=== PATIENT | female | born 1940 | race Hispanic/Latino ===

== ENCOUNTER 2017-12-21 09:01 | Observation (INO) | payer OTHER ==
--- OUTSIDE RECORDS SUMMARY | 2017-12-21 09:03 | XMS REPORT | Clinical Summary ---
:1940 Author Organization [facility] Address [address] [place] [address] Care Team Providers Name Role Phone Garo Shaffer MD Primary Care Provider Allergies No Known Allergies Current Medications Prescription Sig. Disp. Refills Start Date End Date Status aspirin (ECOTRIN) 81 Take 1 tablet 30 tablet 0 01/09/2017 02/08/2017 MG enteric coated (81 mg total) by tablet mouth daily for 30 days. atorvastatin Take 1 tablet 30 tablet 0 01/09/2017 02/08/2017 (LIPITOR) 80 MG (80 mg total) by tablet mouth nightly for 30 days. metoprolol tartrate Take 0.5 tablets 30 tablet 0 01/09/2017 02/08/2017 (LOPRESSOR) 25 mg (12.5 mg total) tablet by mouth 2 (two) times a day for 30 days. clopidogrel (PLAVIX) Take 1 tablet 30 tablet 0 01/09/2017 02/08/2017 75 mg tablet (75 mg total) by mouth daily for 30 days. pantoprazole Take 1 tablet 60 tablet 0 01/09/2017 02/08/2017 (PROTONIX) 40 MG EC (40 mg total) by tablet mouth 2 (two) times a day for 30 days. Active Problems Problem Noted Date Bradycardia 01/03/2017 Paroxysmal atrial fibrillation 01/03/2017 Essential hypertension 01/03/2017 ESRD (end stage renal disease) on dialysis 01/03/2017 CAD S/P percutaneous coronary angioplasty 01/03/2017 Encounters Date Type Specialty Care Team Description 01/15/2017 Telephone Cardiology Eli Lin 01/10/2017 Telephone Cardiology Eli Lin 01/04/2017 Procedure Pass Cardiology 01/02/2017 - Hospital Encounter Cardiology Garo Shaffer, CAD S/P percutaneous 01/09/2017 coronary angioplasty (Primary Dx) after 12/20/2016 Immunizations Name Dates Previously Given Next Due Pneumococcal Conjugate 13-Valent 01/09/2017 Social History Tobacco Use Types Packs/Day Years Used Date Never Assessed Sex Assigned at Date Recorded Not on file Last Filed Vital Signs Vital Sign Reading Time Taken Blood Pressure 160/70 01/09/2017 3:17 PM CDT Pulse 74 01/09/2017 3:17 PM CDT Temperature 36.3 C (97.4 F) 01/09/2017 3:17 PM CDT Respiratory Rate 18 01/09/2017 3:56 AM CDT Oxygen Saturation 96% 01/09/2017 3:17 PM CDT Inhaled Oxygen Concentration - - Weight 54.4 kg (120 lb) 01/09/2017 3:56 AM CDT Height 154.9 cm (5' 1") 01/02/2017 11:52 PM CDT Body Mass Index 22.67 01/09/2017 3:56 AM CDT Plan of Treatment Health Maintenance Due Date Last Done Comments ZOSTER VACCINE 2001 PNEUMOCOCCAL POLYSACCHARIDE VACCINE AGE 65 AND OVER 2006 INFLUENZA VACCINE 04/30/2017 PNEUMOCOCCAL-13 Completed 01/09/2017 Procedures Procedure Name Priority Date/Time Associated Comments Diagnosis HEMODIALYSIS Routine 01/08/2017 12:05 AM CDT HEMODIALYSIS Routine 01/05/2017 12:05 AM CDT ECHOCARDIOGRAM 2D Routine 01/03/2017 3:05 Results for this COMPLETE W MMODE PM CDT procedure are in SPECTRAL COLOR DOPPLER the results (00025) section. after 12/20/2016 Results POC glucose (01/09/2017 4:35 PM)Only the most recent of27 resultswithin the time period is included. Component Value Ref Range POC glucose 138 (H) 65 - 99 mg/dL Comment: [facility] Notified RN Meter ID: [id number] Vessel Scrapper Helper: Henri Boudreaux Specimen Performing Laboratory [facility] DEPARTMENT OF PATHOLOGY AND GENOMIC MEDICINE [address] [place] [address] Prothrombin time with INR (01/09/2017 4:00 AM)Only the most recent of4 resultswithin the time period is included. Component Value Ref Range Prothrombin time 23.2 (H) 12.0 - 15.0 sec INR 2.0 Comment: The International Normalized Ratio (INR) is a therapeutic monitoring tool for patients who are stable on oral anticoagulant therapy. An INR of 2.0-3.0 is suggested for deep vein thrombosis/pulmonary embolism. Specimen Performing Laboratory Blood [facility] DEPARTMENT OF PATHOLOGY AND [facility] MEDICINE [address] [place] [address] CBC with platelet and differential (01/09/2017 3:59 AM)Only the most recent of8 resultswithin the time period is included. Component Value Ref Range WBC 8.05 4.50 - 11.00 k/uL RBC 3.64 (L) 4.20 - 5.50 m/uL HGB 11.4 (L) 12.0 - 16.0 g/dL HCT 35.1 (L) 37.0 - 47.0 % MCV 96.4 82.0 - 100.0 fL MCH 31.3 27.0 - 34.0 pg MCHC 32.5 31.0 - 37.0 g/dL RDW - SD 53.0 37.0 - 55.0 fL MPV 9.4 8.8 - 13.2 fL Platelet count 329 150 - 400 k/uL Nucleated RBC 0.00 /100 WBC Neutrophils 69.8 (H) 39.0 - 69.0 % Lymphocytes 15.9 (L) 25.0 - 45.0 % Monocytes 10.8 (H) 0.0 - 10.0 % Eosinophils 0.7 0.0 - 5.0 % Basophils 1.1 (H) 0.0 - 1.0 % Immature granulocytes 1.7 (H)Comment: "Immature granulocytes" 0.0 - 1.0 % (promyelocytes, myelocytes, metamyelocytes) Specimen Performing Laboratory Blood [facility] DEPARTMENT OF PATHOLOGY AND GENOMIC MEDICINE [address] [place] [address] Estimated GFR (01/09/2017 3:56 AM)Only the most recent of5 resultswithin the time period is included. Component Value Ref Range GFR Non Af Amer 12 (A) mL/min/1.73 m2 GFR Af Amer 14 (A) mL/min/1.73 m2 Comment: Chronic kidney disease: <60 mL/min/1.73m2 Kidney failure: <15 mL/min/1.73m2 The estimated GFR is calculated from the IDMS-traceable Modification of Diet in Renal Disease Equation. The accuracy of the calculation is poor when the creatinine is normal. Calculated values >90 mL/min/1.73m2 are not reported. This equation has not been validated in children (<18 years), women, the elderly (>70 years), or ethnic groups other than Caucasians and Americans. Specimen Performing Laboratory Plasma specimen [facility] DEPARTMENT OF PATHOLOGY AND GENOMIC MEDICINE [address] [place] [address] Comprehensive metabolic panel (01/09/2017 3:56 AM)Only the most recent of4 resultswithin the time period is included. Component Value Ref Range Sodium 139 135 - 148 mEq/L Potassium 3.8 3.5 - 5.0 mEq/L Chloride 95 (L) 98 - 112 mEq/L CO2 29 24 - 31 mEq/L Anion gap 15 7 - 15 mEq/L Comment: Starting from December , anion gap calculation no longer incorporates potassium. Please note the change. BUN 11 8 - 23 mg/dL Creatinine 3.7 (H) 0.5 - 0.9 mg/dL Glucose 149 (H) 65 - 99 mg/dL Calcium 8.1 (L) 8.8 - 10.2 mg/dL Protein 7.6 6.3 - 8.3 g/dL Comment: 4.6-7.0 g/dL 1 week 4.4-7.6 g/dL 7 months-1year5.1-7.3 g/dL 1-2 years5.6-7.5 g/dL >3 years6.0-8.0 g/dL 18-150 6.3-8.3 g/dL Albumin 2.5 (L) 3.5 - 5.0 g/dL A/G ratio 0.5 (L) 0.7 - 3.8 Alkaline phosphatase 113 (H) 35 - 104 U/L AST 31 10 - 35 U/L ALT 22 5 - 50 U/L Total bilirubin 0.7 0.0 - 1.2 mg/dL Specimen Performing Laboratory Plasma specimen [facility] DEPARTMENT OF PATHOLOGY AND GENOMIC MEDICINE [address] [place] [address] Cancer antigen 19-9 (01/08/2017 4:00 AM) Component Value Ref Range CA 19-9 <1 0 - 35 U/mL Comment: The Praveen Marga 8000 CA19-9 immunoassay was used. Results obtained with different assay methods or kits should not be used interchangeably and may be different. Specimen Performing Laboratory Plasma specimen [address] [address] Alpha fetoprotein (01/08/2017 4:00 AM) Component Value Ref Range Alpha fetoprotein 3.3 0.0 - 8.3 ng/mL Comment: The Marga 8000 AFP immunoassay was used. Results obtained with different assay methods or kits should not be used interchangeably and may be different. Specimen Performing Laboratory Serum [address] [address] Carcinoembryonic antigen (CEA) (01/08/2017 4:00 AM) Component Value Ref Range CEA 4.7 (H) 0.0 - 3.8 ng/mL Comment: Reference range for heavy smokers:0.0 - 5.5 ng/mL The PRAVEEN Marga 8000 CEA immunoassay was used. Results obtained with different assay methods or kits should not be used interchangeably and may be different. Specimen Performing Laboratory Serum [address] [address] Lipase level (01/06/2017 3:48 AM)Only the most recent of3 resultswithin the time period is included. Component Value Ref Range Lipase 129 (H) 13 - 60 U/L Specimen Performing Laboratory Plasma specimen [address] [address] Bilirubin direct (01/06/2017 3:48 AM) Component Value Ref Range Bilirubin direct <0.2 0.0 - 0.3 mg/dL Specimen Performing Laboratory Plasma specimen [address] [address] Amylase level (01/06/2017 3:48 AM)Only the most recent of3 resultswithin the time period is included. Component Value Ref Range Amylase 69 13 - 73 U/L Specimen Performing Laboratory Plasma specimen [address] [address] Reticulocyte count (01/05/2017 11:20 AM) Component Value Ref Range Retic %, auto 2.7 (H) 0.5 - 2.1 % Retic absolute, auto 0.0960 0.0210 - 0.1155 m/uL Specimen Performing Laboratory Blood [facility] [address] [address] Parathyroid hormone (01/05/2017 11:20 AM) Component Value Ref Range PTH 254 (H) 15 - 65 pg/mL Specimen Performing Laboratory Blood [facility] [address] [address] Total iron binding capacity (01/05/2017 10:38 AM) Component Value Ref Range Iron level 28 (L) 37 - 145 ug/dL Iron binding capacity 174 (L) 200 - 400 ug/dL % Saturation 16.1 15.0 - 38.0 % Specimen Performing Laboratory Plasma specimen [facility] [address] [address] Ferritin level (01/05/2017 10:38 AM) Component Value Ref Range Ferritin level 5,045 (H) 13 - 150 ng/mL Specimen Performing Laboratory Plasma specimen [facility] [address] [address] Hepatitis B surface antigen (01/05/2017 7:50 AM) Component Value Ref Range Hepatitis B surface Ag Non-reactive Non-reactive Specimen Performing Laboratory Blood [facility] [address] [address] Basic metabolic panel (01/05/2017 7:50 AM) Component Value Ref Range Sodium 129 (L) 135 - 148 mEq/L Potassium 4.5 3.5 - 5.0 mEq/L Chloride 88 (L) 98 - 112 mEq/L CO2 22 (L) 24 - 31 mEq/L Anion gap 19 (H) 7 - 15 mEq/L Comment: Starting from December , anion gap calculation no longer incorporates potassium. Please note the change. BUN 47 (H) 8 - 23 mg/dL Creatinine 7.4 (H) 0.5 - 0.9 mg/dL Glucose 195 (H) 65 - 99 mg/dL Calcium 8.5 (L) 8.8 - 10.2 mg/dL Specimen Performing Laboratory Plasma specimen [facility] DEPARTMENT PATHOLOGY [address] [address] MRI Abdomen Wo Contrast (01/04/2017 9:42 PM) Specimen Performing Laboratory [address] [address] Narrative Examination:MRI ABDOMEN WO CONTRAST Clinical History: pancreatitis Comparison: CT abdomen and pelvis 01/04/2017 Findings: MRI and abdomen was performed without gadolinium contrast. MRCP was performed with computer reformatted images and 3-D MIPS images obtained on the echo system scanner under supervision. Patient motion limits the study. The gallbladder is slightly distended. No gallstone is seen however. The common bile duct measures 6 mm which is within normal limits. No filling defect is seen within the common bile duct. No intrahepatic biliary dilatation is seen. The liver is grossly unremarkable but limited due to patient motion. The spleen is unremarkable. Peripancreatic edema and fat stranding is noted. This includes focal area of ill-defined intermediate to high T2 signal around the tail of the pancreas but without discrete wall. It measures approximately 3.8 x 3.1 cm. The adrenal glands are unremarkable. The kidneys are grossly unremarkable without hydronephrosis. Bowel loops are not well evaluated due to motion. No significant ascites is seen. IMPRESSION: 1. Patient motion limits the study. 2. Peripancreatic edema most consistent with pancreatitis. Focal ill-defined area of intermediate to high T2 signal at the tail the pancreas likely represents area of phlegmon which is not significantly changed compared to the prior study but is not well evaluated due to lack of contrast and due to patient motion. 3. No common bile duct dilatation and no common bile duct stone identified. 4. Gallbladder slightly distended but no gallstone or gallbladder wall thickening is seen. [facility]-[id number] Procedure Note [facility], Radiology Results Incoming - 01/04/2017 10:24 PM CDT Examination: MRI ABDOMEN WO CONTRAST Clinical History: pancreatitis Comparison: CT abdomen and pelvis 01/04/2017 Findings: MRI and abdomen was performed without gadolinium contrast. MRCP was performed with computer reformatted images and 3-D MIPS images obtained on the echo system scanner under supervision. Patient motion limits the study. The gallbladder is slightly distended. No gallstone is seen however. The common bile duct measures 6 mm which is within normal limits. No filling defect is seen within the common bile duct. No intrahepatic biliary dilatation is seen. The liver is grossly unremarkable but limited due to patient motion. The spleen is unremarkable. Peripancreatic edema and fat stranding is noted. This includes focal area of ill-defined intermediate to high T2 signal around the tail of the pancreas but without discrete wall. It measures approximately 3.8 x 3.1 cm. The adrenal glands are unremarkable. The kidneys are grossly unremarkable without hydronephrosis. Bowel loops are not well evaluated due to motion. No significant ascites is seen. IMPRESSION: 1. Patient motion limits the study. 2. Peripancreatic edema most consistent with pancreatitis. Focal ill-defined area of intermediate to high T2 signal at the tail the pancreas likely represents area of phlegmon which is not significantly changed compared to the prior study but is not well evaluated due to lack of contrast and due to patient motion. 3. No common bile duct dilatation and no common bile duct stone identified. 4. Gallbladder slightly distended but no gallstone or gallbladder wall thickening is seen. [facility]-[id number] CT Abdomen Pelvis W Wo Contrast (01/04/2017 7:32 PM) Specimen Performing Laboratory [facility] [address] [place] [address] Narrative EXAMINATION:CT ABDOMEN PELVIS W WO CONTRAST CLINICAL HISTORY:ABDOMINAL PAINRLQ Pancreas protocol TECHNIQUE: CT of the abdomen and pelvis was performed without contrast utilizing renal stone protocol. Subsequently, postcontrast CT of the abdomen and pelvis was obtained with multiphase renal mass and CT urogram protocol. Sagittal and coronal computerized reformatted images were also obtained. Radiation dose reduction technique was utilized. COMPARISON:January 03, 2017 CT scan FINDINGS: Abdomen: 1. Extensive peripancreatic infiltration with poorly defined phlegmon adjacent to the tail the pancreas has decreased slightly in size since the prior days exam. There is satisfactory enhancement of the pancreatic parenchyma, without dilatation of the pancreatic duct. 2.There is extensive nodular edema and thickening along perinephric fascial planes on the left similar to the prior study, presumably inflammatory. 3.There is no hydronephrosis in either kidney. 4.The gallbladder contains sludge which is been vicariously excreted from the prior CT scan. This precludes satisfactory evaluation for stones, but the wall does not appear thickened. 5.Small hypervascular lesion in the tip of the right lobe of liver (series 5 image 62) has not changed since the prior study but remains an indeterminate area. 6.The abdominal aorta is of normal caliber. There is pronounced atherosclerotic calcification in the aorta. Pelvis: 1. No mass, fluid collection, or adenopathy is identified in the pelvis. IMPRESSION: Mild decrease in size of peripancreatic phlegmon with continued peripancreatic and posterior pararenal space edema and nodularity. Symmetrical pancreatic enhancement following intravenous contrast. [facility]-[id number] Procedure Note Interface, Radiology Results Incoming - 01/04/2017 7:51 PM CDT EXAMINATION: CT ABDOMEN PELVIS W WO CONTRAST CLINICAL HISTORY: ABDOMINAL PAIN RLQ Pancreas protocol TECHNIQUE: CT of the abdomen and pelvis was performed without contrast utilizing renal stone protocol. Subsequently, postcontrast CT of the abdomen and pelvis was obtained with multiphase renal mass and CT urogram protocol. Sagittal and coronal computerized reformatted images were also obtained. Radiation dose reduction technique was utilized. COMPARISON: January 03, 2017 CT scan FINDINGS: Abdomen: 1. Extensive peripancreatic infiltration with poorly defined phlegmon adjacent to the tail the pancreas has decreased slightly in size since the prior days exam. There is satisfactory enhancement of the pancreatic parenchyma, without dilatation of the pancreatic duct. 2.There is extensive nodular edema and thickening along perinephric fascial planes on the left similar to the prior study, presumably inflammatory. 3.There is no hydronephrosis in either kidney. 4.The gallbladder contains sludge which is been vicariously excreted from the prior CT scan. This precludes satisfactory evaluation for stones, but the wall does not appear thickened. 5.Small hypervascular lesion in the tip of the right lobe of liver (series 5 image 62) has not changed since the prior study but remains an indeterminate area. 6.The abdominal aorta is of normal caliber. There is pronounced atherosclerotic calcification in the aorta. Pelvis: 1. No mass, fluid collection, or adenopathy is identified in the pelvis. IMPRESSION: Mild decrease in size of peripancreatic phlegmon with continued peripancreatic and posterior pararenal space edema and nodularity. Symmetrical pancreatic enhancement following intravenous contrast. [facility]-[id number] Calcium level (01/04/2017 3:56 PM) Component Value Ref Range Calcium 8.4 (L) 8.8 - 10.2 mg/dL Specimen Performing Laboratory Plasma specimen [facility] DEPARTMENT OF PATHOLOGY AND GENOMIC MEDICINE [address] [place] [address] Lipid panel (01/04/2017 3:56 PM)Only the most recent of2 resultswithin the time period is included. Component Value Ref Range Cholesterol 105 <200 mg/dL Triglycerides 276 (H) <150 mg/dL HDL cholesterol 24 (L) >40 mg/dL LDL cholesterol 35Comment: Result obtained by direct LDL <100 mg/dL measurement Lipid panel interpretation SeeBelow Comment: Total Cholesterol (mg/dL) <200 Desirable 112-473Rqlcknuqdr-vcny >=240High Triglycerides (mg/dL) <150 Normal [id number] 200-499High >=500Very high HDL Cholesterol (mg/dL) <40Low (male) <40Low (female) LDL Cholesterol (mg/dL) <100 Optimal 100-129Near or above optimal [phone]-ulwq 160-189High >=190Very high Risk Catergories that modify LDL goals. Risk CatergoriesLDL goal (mg/dL) CHD and CHD risk equivalent<100 (10-year risk >20%) Multiple (2+) risk factors <130 (10-year risk=<20%) 0-1 risk factors <160 (<10-year risk) Defining levels of lipids in metabolic syndrome Triglycerides>=150 mg/dL HDL Cholesterol Men<40 mg/dL Women<40 mg/dL Non-HDL cholesterol is a second target for therapy in persons with high triglycerides (>=200 mg/dL) Specimen Performing Laboratory Plasma specimen [facility] DEPARTMENT OF PATHOLOGY AND [facility] MEDICINE [address] [place] [address] CBC hemogram (01/04/2017 5:36 AM) Component Value Ref Range WBC 11.23 (H) 4.50 - 11.00 k/uL RBC 3.81 (L) 4.20 - 5.50 m/uL HGB 11.8 (L) 12.0 - 16.0 g/dL HCT 36.9 (L) 37.0 - 47.0 % MCV 96.9 82.0 - 100.0 fL MCH 31.0 27.0 - 34.0 pg MCHC 32.0 31.0 - 37.0 g/dL RDW - SD 55.7 (H) 37.0 - 55.0 fL MPV 9.6 8.8 - 13.2 fL Platelet count 344 150 - 400 k/uL Nucleated RBC 0.30 /100 WBC Specimen Performing Laboratory Blood [facility] DEPARTMENT OF PATHOLOGY AND GENOMIC MEDICINE [address] [place] [address] US Abdomen Complete (01/03/2017 10:41 PM) Specimen Performing Laboratory [facility] [address] [place] [address], [place] [address] Narrative EXAM: US ABDOMEN COMPLETE CLINICAL DATA:evaluate biliary tree COMPARISON: NONE. FINDINGS: LIVER:The liver demonstrates normal echogenicity without focal mass or intrahepatic biliary ductal dilatation. MPV:Doppler evaluation of the portal vein demonstrates normal hepatopedal flow. GALLBLADDER:The gallbladder is without evidence of calculi. There is gallbladder sludge. The gallbladder wall is not thickened and there is no pericholecystic fluid. CBD: 0.5 cm, within normal limits. PANCREAS:The visualized portions of the pancreas are within normal limits. Please refer to the recently performed CT of the abdomen and pelvis for description of the pancreatitis. SPLEEN:The spleen is homogeneous and not enlarged. The spleen measures 8.1 x 3.6 x 3.8 cm in size. RIGHT KIDNEY:There is no evidence of mass, calculi, or hydronephrosis. The right kidney measures 8.2 x 6.7 x 4.4 cm in size. There is mildly increased renal cortical echogenicity. LEFT KIDNEY:There is no evidence of mass, calculi, or hydronephrosis. The left kidney measures 8.5 x 4.1 x 3.8 cm in size. There is mildly increased renal cortical echogenicity. AORTA:The visualized upper abdominal aorta demonstrates no evidence of ectasia or aneurysm. IVC:The visualized portions of the inferior vena cava are unremarkable. ASCITES: No abnormal abdominal fluid collections are visualized. There is no evidence of ascites. PLEURAL EFFUSION:There are no pleural effusions. IMPRESSION: 1. Gallbladder sludge without evidence of cholelithiasis or acute cholecystitis. The common bile duct is normal in diameter. 2. Mildly increased echogenicity of both kidneys, correlate clinically for the possibility of medical renal disease. [facility]-[id number] Procedure Note [facility], Radiology Results Incoming - 01/03/2017 11:39 PM CDT EXAM: US ABDOMEN COMPLETE CLINICAL DATA: evaluate biliary tree COMPARISON: NONE. FINDINGS: LIVER: The liver demonstrates normal echogenicity without focal mass or intrahepatic biliary ductal dilatation. MPV: Doppler evaluation of the portal vein demonstrates normal hepatopedal flow. GALLBLADDER: The gallbladder is without evidence of calculi. There is gallbladder sludge. The gallbladder wall is not thickened and there is no pericholecystic fluid. CBD: 0.5 cm, within normal limits. PANCREAS: The visualized portions of the pancreas are within normal limits. Please refer to the recently performed CT of the abdomen and pelvis for description of the pancreatitis. SPLEEN: The spleen is homogeneous and not enlarged. The spleen measures 8.1 x 3.6 x 3.8 cm in size. RIGHT KIDNEY: There is no evidence of mass, calculi, or hydronephrosis. The right kidney measures 8.2 x 6.7 x 4.4 cm in size. There is mildly increased renal cortical echogenicity. LEFT KIDNEY: There is no evidence of mass, calculi, or hydronephrosis. The left kidney measures 8.5 x 4.1 x 3.8 cm in size. There is mildly increased renal cortical echogenicity. AORTA: The visualized upper abdominal aorta demonstrates no evidence of ectasia or aneurysm. IVC: The visualized portions of the inferior vena cava are unremarkable. ASCITES: No abnormal abdominal fluid collections are visualized. There is no evidence of ascites. PLEURAL EFFUSION: There are no pleural effusions. IMPRESSION: 1. Gallbladder sludge without evidence of cholelithiasis or acute cholecystitis. The common bile duct is normal in diameter. 2. Mildly increased echogenicity of both kidneys, correlate clinically for the possibility of medical renal disease. [facility]-[id number] Manual differential (01/03/2017 8:46 PM)Only the most recent of3 resultswithin the time period is included. Component Value Ref Range Manual differential PERFORMED Neutrophils 87.0 (H) 39.0 - 69.0 % Lymphocytes 7.0 (L) 25.0 - 45.0 % Monocytes 4.0 0.0 - 10.0 % Eosinophils 2.0 0.0 - 5.0 % Basophils 0.0 0.0 - 1.0 % Metamyelocytes 0 % Promyelocytes 0 % Platelet slide review [place]ek[place] adequate Specimen Performing Laboratory [facility] DEPARTMENT OF PATHOLOGY AND GENOMIC MEDICINE [address] [place] [address] Echocardiogram complete w contrast and 3D if needed (01/03/2017 3:05 PM) Specimen Performing [facility] [address] [place] [address] Narrative Echocardiography Report [address] [place] [address] Pat.Name:ROMAINE TRONCOSO Pat.ID:[id number] St.Date: 01/03/2017Refer.MD:GARO SHAFFER MD Exam Time: 1:14:00 PMStudy Type:Routine Echo Height:61inWeight:155lb BSA: 1.7 p5DPSWvf:1940,76Y Sex: FEMALEBP:133/67 Sonogrphr: Pedro Ruiz, ALEXIA, RDROGELIO LAURENT Stat.:Inpatient Room:[address] Status:Final Echo Event ID:[id number] Order ID:[id number] Reason for Study:Chest pain, suspected cardiac etiology Procedures:2D Echo, Colorflow Doppler, Portable Race:Z SUMMARY: Findings consistent with HFpEF. FINDINGS: LV: LV size is normal. LV function is normal. Overall wall motionis normal. Estimated EF is 65-69% RV: RV size is normal. RV function is normal. RV wall motion is normal. LA: LA size is normal. RA: RA size is normal. AO: Aortic root diameter is normal. HENRIQUE: No pericardial effusion. AV: Mild calcification of AV leaflets. MV: No structural MV abnormalities noted. A trace of mitral regurgitation. PV: No structural PV abnormalities noted. A trace of pulmonic regurgitation. TV: No structural TV abnormalities noted. Mild tricuspid regurgitation Trivedi: LV relaxation is impaired. LV filling pressure is elevated. Other:Estimated PA systolic pressure is 41 mmHg, assuming a mean RAPof 5 mmHg. MEASUREMENTS: 2D Parasternal [place] Ao An1.8 cmIVSd 1 cm LVOT 1.8 cmLVPWd1.1 cm LVIDd3.7 cmIndex 2.2 cm/m LA Ds4.2 cm LVIDs2.4 cmAo Rtd 2.6 cm Index1.5 cm/m LV%fs 35.2 % LA Sng Plane LA Area 19.5 cm2(8.8-23.4) LA Vol55.6 ml Index32.7 ml/m LA LngAx 5.6 cm DOPPLER LVOT Stroke Vol LVOT 1.9 cmLVOT CO4.4 l/min LVOT TVI22.8 cmLVOT CI2.6 l/m/m2 LVOT [id number] bpm LVOT SV 64.7 ml Signed 01/03/2017 05:18 PM Rosamaria Topete M.D. Procedure Note Interface, Radiology Results In - 01/03/2017 5:18 PM CDT Echocardiography Report [id number] [place] [address] Pat.Name: ROMAINE TRONCOSO Pat.ID: [id number] .Date: 01/03/2017 Refer.MD: GARO SHAFFER MD Exam Time: 1:14:00 PM Study Type:Routine Echo Height: 61in Weight: 155lb BSA: 1.7 m2 Age: 5 1940,76Y Sex: FEMALE BP: 133/67 Sonogrphr: ALEXIA Stevens, ROGELIO JOSHUA Pat. Stat.:Inpatient Room: [facility] Study Status:Final Echo Event ID:[id number] Order ID: [id number] Reason for Study:Chest pain, suspected cardiac etiology Procedures:2D Echo, Colorflow Doppler, Portable Race: Z SUMMARY: Findings consistent with HFpEF. FINDINGS: LV: LV size is normal. LV function is normal. Overall wall motion is normal. Estimated EF is 65-69% RV: RV size is normal. RV function is normal. RV wall motion is normal. LA: LA size is normal. RA: RA size is normal. AO: Aortic root diameter is normal. HENRIQUE: No pericardial effusion. AV: Mild calcification of AV leaflets. MV: No structural MV abnormalities noted. A trace of mitral regurgitation. PV: No structural PV abnormalities noted. A trace of pulmonic regurgitation. TV: No structural TV abnormalities noted. Mild tricuspid regurgitation Trivedi: LV relaxation is impaired. LV filling pressure is elevated. Other: Estimated PA systolic pressure is 41 mmHg, assuming a mean RAP of 5 mmHg. MEASUREMENTS: 2D Parasternal [place] Ao An 1.8 cm IVSd 1 cm LVOT 1.8 cm LVPWd 1.1 cm LVIDd 3.7 cm Index 2.2 cm/m LA Ds 4.2 cm LVIDs 2.4 cm Ao Rtd 2.6 cm Index 1.5 cm/m LV%fs 35.2 % LA Sng Plane LA Area 19.5 cm2 (8.8-23.4) LA Vol 55.6 ml Index 32.7 ml/m LA LngAx 5.6 cm DOPPLER LVOT Stroke Vol LVOT 1.9 cm LVOT CO 4.4 l/min LVOT TVI 22.8 cm LVOT CI 2.6 l/m/m2 LVOT Tm 316 msec HR 68 bpm LVOT SV 64.7 ml Signed 01/03/2017 05:18 PM Rosamaria Topete M.D. CT Abdomen Pelvis W Contrast (01/03/2017 8:46 AM) Specimen Performing Laboratory [facility] [id number] [place] [address] Narrative EXAMINATION:CT ABDOMEN PELVIS W CONTRAST CLINICAL HISTORY:PERITONEAL SIGNS Hx of recent pancreatitis TECHNIQUE: Multiple axial images of the abdomen and pelvis were obtained following intravenous administration of iodinated contrast. Sagittal and coronal computerized reformatted images were also obtained..All CT images were acquired using radiation dose lowering technique with automated exposure control and / or iterative reconstruction. COMPARISON:None IMPRESSION: ABDOMEN: 1. Peripancreatic inflammatory stranding and phlegmon most pronounced peripherally extending caudally down the retroperitoneum and along the left posterior pararenal space and to a lesser degree anterior, with nodular areas of peritoneal thickening and edema along the left paracolic gutter and Gerota's fascia. Similar findings to a slightly lesser extent on the right side. Findings indicate subacute pancreatitis. No drainable fluid collection is identified. No pseudocyst identified. 2.Pancreas enhances uniformly with no necrosis or mass, and no duct dilation. 3.Punctate calcifications in the head and uncinate process are dystrophic related to prior episodes of pericarditis given the clinical history. 4.Gallbladder is distended measuring 4.5 cm transverse which may be due to fasting, though there is some subtle layering hyperdensity centrally which may represent sludge or conceivably calculi. This can be better assessed with ultrasound. However, there is no bile duct dilation to indicate biliary pancreatitis. Common bile duct measures 5 mm within normal range. 5.Indeterminate faintly hyperenhancing 1.9 cm nodular focus in hepatic segment 5/6 junction inferiorly, series 2 image 48, and series 300 image 31. This is likely a benign etiology such as an FNH, though outpatient MRI abdomen with Eovist once acute issues have resolved is recommended. Focal fatty infiltration in segment 3 along falciform ligament. 6.Extensive coronary artery calcification. Scarring and atelectasis in the lung bases with calcified granulomata. 7.Hepatic and portal venous system including main portal vein, SMV and splenic vein are patent. Spleen, adrenal glands demonstrate nothing unusual. 8.Extensive atherosclerotic plaque within the abdominal aorta with infrarenal ectasia measuring only up to 1.3 cm. No AAA. 9.Renal vascular calcification and/or nonobstructive nephrolithiasis bilaterally. Mild bilateral perinephric stranding indicating medical renal disease. Subcentimeter hypodensity in the lower pole left kidney too small to characterize, though likely a cyst or scar. No hydronephrosis on either side. PELVIS: 1. No lymphadenopathy identified within the abdomen or pelvis. No drainable ascites. Small amount of free fluid surrounding the pancreas related to the pancreatitis. 2.Urinary bladder demonstrates nothing unusual. Uterus and adnexa grossly unremarkable. 3.Small hiatal hernia. Bowel loop show no evidence of obstruction or acute inflammation. SUMMARY: Moderate subacute pancreatitis. Follow-up to ensure resolution recommended. No drainable fluid collection. Gallbladder distention possibly from fasting, though sludge and/or calculi may be present, and correlation with gallbladder ultrasound advised. No bile duct dilation however. Indeterminate liver lesion likely benign, though outpatient follow-up as detailed above recommended. Other incidental findings as above. Incidental Abdominal findings [facility] PQRS #[id number] required reporting elements: Liver < 0.5 cm: none Recommendation:n/a Cystic Renal < 1 cm: as above Recommendation:[No imaging followup is recommended, unless clinically indicated.] Adrenal < 1 cm:none Recommendation:n/a [facility]-[id number] Procedure Note Hm Interface, Radiology Results Incoming - 01/03/2017 9:12 AM CDT EXAMINATION: CT ABDOMEN PELVIS W CONTRAST CLINICAL HISTORY: PERITONEAL SIGNS Hx of recent pancreatitis TECHNIQUE: Multiple axial images of the abdomen and pelvis were obtained following intravenous administration of iodinated contrast. Sagittal and coronal computerized reformatted images were also obtained.. All CT images were acquired using radiation dose lowering technique with automated exposure control and / or iterative reconstruction. COMPARISON: None IMPRESSION: ABDOMEN: 1. Peripancreatic inflammatory stranding and phlegmon most pronounced peripherally extending caudally down the retroperitoneum and along the left posterior pararenal space and to a lesser degree anterior, with nodular areas of peritoneal thickening and edema along the left paracolic gutter and Gerota's fascia. Similar findings to a slightly lesser extent on the right side. Findings indicate subacute pancreatitis. No drainable fluid collection is identified. No pseudocyst identified. 2.Pancreas enhances uniformly with no necrosis or mass, and no duct dilation. 3.Punctate calcifications in the head and uncinate process are dystrophic related to prior episodes of pericarditis given the clinical history. 4.Gallbladder is distended measuring 4.5 cm transverse which may be due to fasting, though there is some subtle layering hyperdensity centrally which may represent sludge or conceivably calculi. This can be better assessed with ultrasound. However, there is no bile duct dilation to indicate biliary pancreatitis. Common bile duct measures 5 mm within normal range. 5.Indeterminate faintly hyperenhancing 1.9 cm nodular focus in hepatic segment 5/6 junction inferiorly, series 2 image 48, and series 300 image 31. This is likely a benign etiology such as an FNH, though outpatient MRI abdomen with Eovist once acute issues have resolved is recommended. Focal fatty infiltration in segment 3 along falciform ligament. 6.Extensive coronary artery calcification. Scarring and atelectasis in the lung bases with calcified granulomata. 7.Hepatic and portal venous system including main portal vein, SMV and splenic vein are patent. Spleen, adrenal glands demonstrate nothing unusual. 8.Extensive atherosclerotic plaque within the abdominal aorta with infrarenal ectasia measuring only up to 1.3 cm. No AAA. 9.Renal vascular calcification and/or nonobstructive nephrolithiasis bilaterally. Mild bilateral perinephric stranding indicating medical renal disease. Subcentimeter hypodensity in the lower pole left kidney too small to characterize, though likely a cyst or scar. No hydronephrosis on either side. PELVIS: 1. No lymphadenopathy identified within the abdomen or pelvis. No drainable ascites. Small amount of free fluid surrounding the pancreas related to the pancreatitis. 2.Urinary bladder demonstrates nothing unusual. Uterus and adnexa grossly unremarkable. 3.Small hiatal hernia. Bowel loop show no evidence of obstruction or acute inflammation. SUMMARY: Moderate subacute pancreatitis. Follow-up to ensure resolution recommended. No drainable fluid collection. Gallbladder distention possibly from fasting, though sludge and/or calculi may be present, and correlation with gallbladder ultrasound advised. No bile duct dilation however. Indeterminate liver lesion likely benign, though outpatient follow-up as detailed above recommended. Other incidental findings as above. Incidental Abdominal findings [facility] PQRS #[id number] required reporting elements: Liver < 0.5 cm: none Recommendation: n/a Cystic Renal < 1 cm: as above Recommendation: [No imaging followup is recommended, unless clinically indicated.] Adrenal < 1 cm: none Recommendation: n/a [facility]-[id number] XR Chest 1 Vw Portable (01/03/2017 6:28 AM) Specimen Performing Laboratory [address] [address] Narrative EXAMINATION:XR CHEST 1 VW PORTABLE CLINICAL HISTORY:SHORTNESS OF BREATH COMPARISON:None IMPRESSION: Cardiomediastinal silhouette is slightly enlarged. Pulmonary vasculature is within normal limits. Mild to moderate elevation of the right hemidiaphragm. Mild bibasilar atelectasis. No lobar consolidation or pleural effusion identified on this frontal view. Bones are demineralized. [facility]-[id number] Procedure Note Interface, Radiology Results Incoming - 01/03/2017 7:17 AM CDT EXAMINATION: XR CHEST 1 VW PORTABLE CLINICAL HISTORY: SHORTNESS OF BREATH COMPARISON: None IMPRESSION: Cardiomediastinal silhouette is slightly enlarged. Pulmonary vasculature is within normal limits. Mild to moderate elevation of the right hemidiaphragm. Mild bibasilar atelectasis. No lobar consolidation or pleural effusion identified on this frontal view. Bones are demineralized. [facility]-[id number] Blood culture, aerobic & anaerobic (01/03/2017 2:10 AM)Only the most recent of2 resultswithin the time period is included. Component Value Ref Range Blood culture isolate No growth after 5 days of incubation. Comment: Specimen Information Specimen Source: Blood Specimen Site: Right Hand Specimen Performing Laboratory Blood - Right [facility] DEPARTMENT OF PATHOLOGY AND GENOMIC MEDICINE [address] [place] [id number] Troponin (01/03/2017 1:30 AM) Component Value Ref Range Troponin <0.30 0.00 - 0.30 ng/mL Comment: 0.30 - 1.49 ng/mlMay indicate increased risk of acute coronary syndrome. >=1.5 ng/mlConsistent with acute myocardial infarction. The diagnostic value of a single normal or non-diagnostic result is questionable.Serial samples at 2-6 hour intervals are required to rule out acute myocardial injury. Specimen Performing Laboratory Plasma specimen [facility] DEPARTMENT OF PATHOLOGY AND [address] [address] Partial thromboplastin time, activated (01/03/2017 1:30 AM) Component Value Ref Range PTT 38.5 (H) 23.0 - 36.0 sec Comment: PTT therapeutic range for unfractionated heparin is 61.0-112.0 seconds which corresponds to Anti-Xa 0.3-0.7 U/ml. Specimen Performing Laboratory Blood [facility] DEPARTMENT PATHOLOGY [address] [address] Thyroid stimulating hormone (01/03/2017 1:30 AM) Component Value Ref Range TSH 11.61 (H) 0.27 - 4.20 uIU/mL Specimen Performing Laboratory Plasma specimen [facility] DEPARTMENT PATHOLOGY [address] [address] T4, free (01/03/2017 1:30 AM) Component Value Ref Range T4, free 1.1 0.9 - 1.7 ng/dL Specimen Performing Laboratory Plasma specimen [facility] DEPARTMENT PATHOLOGY [address] [address] Phosphorus level (01/03/2017 1:30 AM) Component Value Ref Range Phosphorus 3.5 2.4 - 4.5 mg/dL Specimen Performing Laboratory Plasma specimen [facility] DEPARTMENT OF PATHOLOGY AND [address] [address] B natriuretic peptide (01/03/2017 1:30 AM) Component Value Ref Range BNP 3,175 (H) 0 - 100 pg/mL Specimen Performing Laboratory Blood [facility] PATHOLOGY [address] [address] Magnesium level (01/03/2017 1:30 AM) Component Value Ref Range Magnesium 2.0 1.6 - 2.4 mg/dL Specimen Performing Laboratory Plasma specimen [facility] DEPARTMENT PATHOLOGY [address] [address] Lactic acid level (01/03/2017 1:30 AM) Component Value Ref Range Lactic acid 3.0 (H) 0.5 - 2.2 mmol/L Specimen Performing Laboratory Plasma specimen [facility] DEPARTMENT OF PATHOLOGY AND GENOMIC MEDICINE [address] [place] [address] ECG 12 lead (01/02/2017 10:37 PM) Component Value Ref Range Ventricular rate 96 Atrial rate 96 OH interval 134 QRSD interval 78 QT interval 320 QTC interval 404 P axis 1 53 QRS axis 1 9 T wave axis 103 EKG impression Normal sinus rhythm-Possible Left atrial enlargement-ST & T wave abnormality, consider inferior ischemia-ST & T wave abnormality, consider anterolateral ischemia-Abnormal ECG-In automated compar augustus with ECG of 17-OCT-2015 10:59,-ST now depressed in Anterior leads-T wave inversion now evident in Inferior leads-T wave inversion now evident in Anterolateral leads-QT has shortened- Specimen Performing Laboratory [facility] [address] [place] [address] after 12/20/2016 Insurance Payer Benefit Plan / Group Subscriber ID Type Phone Address MEDICARE MEDICARE PART A AND B xxxxxxxxxx Medicare [place], [place] Home: [address] [phone] [place], [place] [address]
[2017-12-21 09:55] LABS: Absolute Lymphocytes (CBC) 1.1 K/uL (0.7-4.9); Absolute Monocytes 0.6 K/uL (0.1-1.3); Absolute Neutrophil 8.6 K/uL (1.8-8.0); Basophils % 0.9 % (0-1.3); Eosinophils % 1.2 % (0-4.4); Hematocrit 28.9 % (36.0-45.0); MCH 28.8 pg (27.0-35.0); MCV 91.1 fL (80-100); MPV 8.6 fL (7.6-11.3); Monocytes % 6.1 % (3.3-12.3); RBC Red Blood Cell Count 3.18 M/uL (3.86-4.86)
[2017-12-21] MEDS ORDERED: LEVALBUTEROL 1.25 MG/3 ML NEB ONE (09:56)
[2017-12-21] MEDS ORDERED: IPRATROPIUM BROM 0.5MG/2.5ML ONE (09:56)
[2017-12-21 09:59] LABS: Protime INR 1.16
[2017-12-21 10:12] LABS: Bilirubin Direct 0.3 mg/dL (0-0.2); Bilirubin Total 1.1 mg/dL (0.3-1.2); Magnesium 1.9 mg/dL (1.8-2.5); Protein, Total 7.2 g/dL (6.0-8.3)
[2017-12-21 10:15] LABS: CKMB Creatine Kinase MB 0.9 ng/ml (0.3-4.0)
--- NOTE | 2017-12-21 10:35 | RAD REPORT ---
EXAM DESCRIPTION: [facility] Single View12/21/2017 9:44 am CLINICAL HISTORY: Chest pain COMPARISON: December 04 FINDINGS: Marked bilateral pulmonary opacities are seen. The heart is enlarged IMPRESSION: Marked bilateral pulmonary opacities could represent pulmonary edema or pneumonia
--- NOTE | 2017-12-21 10:53 | EDPHYS ---
Physician Documentation [facility] Name: Chen Troncoso Age: 77 yrs Sex: Female : 1940 Arrival Date: 12/21/2017 Time: 09:04 Bed 15 Private MD: RADHA Physician Alfredo Evans HPI: 12/21 09:22 This 77 yrs old Female presents to ER via Wheelchair with complaints of kb Shortness Of Breath, Cough. 09:24 The patient has shortness of breath at rest, and the patient has a history of CHF, kb ESRD. Onset: The symptoms/episode began/occurred 1 month(s) ago. Duration: The symptoms are intermittent. The patient's shortness of breath is aggravated by exertion, is alleviated by nothing. Associated signs and symptoms: Pertinent positives: chest pain, non-productive cough, Pertinent negatives: productive cough, diaphoresis, dizziness, fever, hemoptysis, loss of consciousness, nausea, numbness in extremities, visual changes, vomiting. Severity of symptoms: At their worst the symptoms were mild moderate in the emergency department the symptoms are unchanged. The patient has not experienced similar symptoms in the past. The patient has not recently seen a physician. Pt went to dialysis this morning and told them that she hasn't been feeling well. Has had chest pain and shortness of breath intermittently for a month. They told her she needed to come to the ER to be seen. Dialysis was not performed. . Historical: - Allergies: 09:59 NKDA; rb1 - Home Meds: :59 amiodarone 200 mg Oral tab 1 tab once daily [Active]; Lantus 100 unit/mL Sub-Q soln 26 rb1 units BID [Active]; Lasix 40 mg Oral tab 1 tab 3 times per day [Active]; Norvasc 10 mg Oral tab 1 tab once daily [Active]; Novolog PenFill 100 unit/mL subcutaneous crtg 5 unit [Active]; renevela 800 mg PO TID [Active]; Vitamin D3 5,000 unit Oral tab daily [Active]; - PMHx: 09:11 Anemia; CHF; Diabetes - IDDM; Dialysis; ESRD; Hyperlipidemia; Hypertension; PVD; ss - PSHx: 09:59 ; dialysis shunt-left arm; rb1 - Immunization history:: Adult Immunizations up to date. - Social history:: Smoking status: Patient/guardian denies using tobacco. ROS: 09:23 Constitutional: Negative for fever, chills, and weight loss, Abdomen/GI: Negative for kb abdominal pain, nausea, vomiting, diarrhea, and constipation, Back: Negative for injury and pain, : Negative for injury, bleeding, discharge, and swelling, MS/Extremity: Negative for injury and deformity, Skin: Negative for injury, rash, and discoloration, Neuro: Negative for headache, weakness, numbness, tingling, and seizure. 09:23 Cardiovascular: Positive for chest pain, Negative for edema, orthopnea, palpitations, paroxysmal nocturnal dyspnea. 09:23 Respiratory: Positive for shortness of breath, Negative for cough, dyspnea on exertion, hemoptysis, orthopnea, pleurisy, sputum production, wheezing. Exam: 09:23 Constitutional: This is a well developed, well nourished patient who is awake, alert, kb and in no acute distress. Head/Face: Normocephalic, atraumatic. Chest/axilla: Normal chest wall appearance and motion. Nontender with no deformity. No lesions are appreciated. Cardiovascular: Regular rate and rhythm with a normal S1 and S2. No gallops, murmurs, or rubs. Normal PMI, no JVD. No pulse deficits. Abdomen/GI: Soft, non-tender, with normal bowel sounds. No distension or tympany. No guarding or rebound. No evidence of tenderness throughout. Back: No spinal tenderness. No costovertebral tenderness. Full range of motion. Skin: Warm, dry with normal turgor. Normal color with no rashes, no lesions, and no evidence of cellulitis. MS/ Extremity: Pulses equal, no cyanosis. Neurovascular intact. Full, normal range of motion. Neuro: Awake and alert, GCS 15, oriented to person, place, time, and situation. Cranial nerves II-XII grossly intact. Motor strength 5/5 in all extremities. Sensory grossly intact. Cerebellar exam normal. Normal gait. 09:23 Respiratory: the patient does not display signs of respiratory distress, Respirations: tachypnea, Breath sounds: are clear throughout. Vital Signs: 09:05 Pulse Ox 85% on R/A; ss 09:10 Weight 50.35 kg (R); Height 5 ft. 1 in. (154.94 cm) (R); rb1 09:11 BP 182 / 52; Pulse 64; Resp 19; Temp 97.8(O); Pulse Ox 96% on 5 lpm NC; ag 09:56 BP 187 / 47; Pulse 63; Resp 27; Pulse Ox 100% on 4 lpm NC; rb1 10:52 BP 187 / 61; Pulse 76; Resp 29; Pulse Ox 99% on 4 lpm NC; rb1 11:51 BP 183 / 57; Pulse 72; Resp 19; Pulse Ox 99% on R/A; rb1 12:45 BP 178 / 61; Pulse 64; Resp 18; Pulse Ox 100% on R/A; rb1 09:10 Body Mass Index 20.97 (50.35 kg, 154.94 cm) rb1 MDM: 09:13 Patient medically screened. kb 09:23 Data reviewed: vital signs, nurses notes. Data interpreted: Pulse oximetry: on 5L(s) kb per nasal canula, is 96 %. Interpretation: normal. 10:28 ED course: Pt reports she is feeling better after breathing treatment. 100% on 5L. kb 10:48 Counseling: I had a detailed discussion with the patient and/or guardian regarding: the kb historical points, exam findings, and any diagnostic results supporting the discharge/admit diagnosis, lab results, radiology results, the need for further work-up and treatment in the hospital. Physician consultation: Kristian Miller MD was contacted at 10:48, regarding consult, patient's condition, need for dialysis, will call dialysis nurse to have dialysis done today. 12/21 09:14 Order name: Basic Metabolic Panel 12/21 09:14 Order name: BNP 12/21 09:14 Order name: CBC with Diff 12/21 09:14 Order name: Ckmb 12/21 09:14 Order name: CPK 12/21 09:14 Order name: LFT's 12/21 09:14 Order name: Magnesium 12/21 09:14 Order name: PT-INR 12/21 09:14 Order name: Ptt, Activated 12/21 09:14 Order name: Troponin (emerg Dept Use Only) 12/21 09:55 Order name: CBC with Automated Diff; Complete Time: 09:59 EDMS 12/21 09:59 Order name: Protime (+INR); Complete Time: 10:02 EDMS 12/21 09:59 Order name: PTT, Activated Partial Thromb; Complete Time: 10:02 EDMS 12/21 10:06 Order name: Basic Metabolic Panel; Complete Time: 10:52 EDMS 12/21 09:14 Order name: XRAY Chest (1 view) kb 12/21 09:14 Order name: EKG; Complete Time: 09:14 kb 12/21 09:14 Order name: Cardiac monitoring; Complete Time: 09:48 kb 12/21 09:14 Order name: EKG - Nurse/Tech; Complete Time: 09:48 kb 12/21 09:14 Order name: IV Saline Lock; Complete Time: 09:49 kb 12/21 09:14 Order name: Labs collected and sent; Complete Time: 09:49 kb 12/21 09:14 Order name: O2 Per Protocol; Complete Time: 09:49 kb 12/21 10:12 Order name: Troponin (Emerg Dept Use Only); Complete Time: 10:13 EDMS 12/21 10:12 Order name: Liver (Hepatic) Function; Complete Time: 10:52 EDMS 12/21 10:12 Order name: Creatine Phosphokinase; Complete Time: 10:52 EDMS 12/21 10:12 Order name: Magnesium; Complete Time: 10:52 EDMS 12/21 10:15 Order name: BNP B-Type Natriuretic Peptide; Complete Time: 10:22 EDMS 12/21 10:15 Order name: CKMB Creatine Kinase MB; Complete Time: 10:52 EDMS 12/21 10:35 Order name: RAD; Complete Time: 10:35 EDMS 12/21 09:14 Order name: O2 Sat Monitoring; Complete Time: 09:49 kb Administered Medications: 09:36 Drug: Xopenex (3) 1.25 mg Route: Inhalation; rb1 09:36 Drug: AtroVENT Aerosol 0.5 mg Route: Inhalation; rb1 Disposition: 12/21/17 10:52 Hospitalization ordered by Adelfo Orr for Observation. Preliminary diagnosis are End stage renal disease, Pulmonary edema. - Bed requested for Telemetry/MedSurg (observation). - Status is Observation. rb1 - Condition is Stable. - Problem is an acute exacerbation. - Symptoms are unchanged. UTI on Admission? No Addendum: 12/23/2017 08:10 Co-signature as Attending Physician, Alfredo Evans MD I agree with the assessment and c hargrove plan of care. Signatures: Dispatcher [employer] EDSofia Jamison, ENAMEL BUFFER-C ENAMEL BUFFER-Ckb Alfredo Evans MD MD cha Smirch, Shelby, RN RN ss Heidi Hong RN RN rb1 Haydee Jamil RN RN df Corrections: (The following items were deleted from the chart) 12/21 10:29 09:23 Data interpreted: Pulse oximetry: on room air is 96 %. Interpretation: normal. kb kb
--- NOTE | 2017-12-21 10:53 | ER ---
Nurse's Notes [facility] Name: Chen Troncoso Age: 77 yrs Sex: Female : 1940 Arrival Date: 12/21/2017 Time: 09:04 Bed 15 Private MD: Diagnosis: End stage renal disease;Pulmonary edema Presentation: 12/21 09:09 Presenting complaint: granddaughter reports that they called dialysis clinic this ss morning to let them know that patient was having chest pain, shortness of breath and not feeling well. Dialysis instructed family to bring patient to ER. Last dialysis session was , 12/19/17. PT reports she is on home O2 at 4 L at all times, but arrived to ER without O2 in place. RA O2 saturation is 85%. Transition of care: patient was not received from another setting of care. Onset of symptoms was December 21, 2017. Care prior to arrival: None. 09:09 Method Of Arrival: Wheelchair ss 09:09 Acuity: REBEKAH 2 ss Triage Assessment: 13:03 Respiratory: Onset: The symptoms/episode began/occurred. rb1 Historical: - Allergies: 09:59 NKDA; rb1 - Home Meds: 09:59 amiodarone 200 mg Oral tab 1 tab once daily [Active]; Lantus 100 unit/mL Sub-Q soln 26 rb1 units BID [Active]; Lasix 40 mg Oral tab 1 tab 3 times per day [Active]; Norvasc 10 mg Oral tab 1 tab once daily [Active]; Novolog PenFill 100 unit/mL subcutaneous crtg 5 unit [Active]; renevela 800 mg PO TID [Active]; Vitamin D3 5,000 unit Oral tab daily [Active]; - PMHx: 09:11 Anemia; CHF; Diabetes - IDDM; Dialysis; ESRD; Hyperlipidemia; Hypertension; PVD; ss - PSHx: 09:59 ; dialysis shunt-left arm; rb1 - Immunization history:: Adult Immunizations up to date. - Social history:: Smoking status: Patient/guardian denies using tobacco. Screenin:10 Abuse screen: Denies threats or abuse. Nutritional screening: No deficits noted. rb1 Tuberculosis screening: No symptoms or risk factors identified. Fall Risk None identified. Assessment: 09:10 General: Appears in no apparent distress. comfortable, Behavior is calm, cooperative. rb1 Pain: Complains of pain in chest. Neuro: Level of Consciousness is awake, alert, obeys commands, Oriented to person, place, time, situation. Cardiovascular: Capillary refill < 3 seconds is brisk in bilateral fingers Rhythm is regular. Respiratory: Reports shortness of breath cough that is Airway is patent Respiratory effort is even, unlabored, Respiratory pattern is regular, symmetrical, the patient has mild shortness of breath. 09:10 Neuro: Lead Trainer are equal bilaterally Moves all extremities. Gait is steady, Speech is rb1 normal, Facial symmetry appears normal, Pupils are PERRLA. Respiratory: Breath sounds with rhonchi bilaterally. GI: No signs and/or symptoms were reported involving the gastrointestinal system. : Reports dialysis was canceled today when the family called to notify them that the pt wasn't feeling well. Facility told the pt. to come to the ER. Derm: Skin is pink, warm \T\ dry. Musculoskeletal: Range of motion: intact in all extremities. 10:00 Reassessment: Patient appears in no apparent distress at this time. Patient and/or rb1 family updated on plan of care and expected duration. Pain level reassessed. Patient is alert, oriented x 3, equal unlabored respirations, skin warm/dry/pink. Patient states symptoms have improved. 11:00 Reassessment: Patient appears in no apparent distress at this time. No changes from rb1 previously documented assessment. 11:59 Reassessment: Patient appears in no apparent distress at this time. Patient and/or rb1 family updated on plan of care and expected duration. Pain level reassessed. Patient is alert, oriented x 3, equal unlabored respirations, skin warm/dry/pink. Family at bedside. 12:30 Reassessment: Called report to VIGNESH Sullivan. Information from the SBAR was given. All rb1 questions asked and answered. Vital Signs: 09:05 Pulse Ox 85% on R/A; ss 09:10 Weight 50.35 kg (R); Height 5 ft. 1 in. (154.94 cm) (R); rb1 09:11 BP 182 / 52; Pulse 64; Resp 19; Temp 97.8(O); Pulse Ox 96% on 5 lpm NC; ag 09:56 BP 187 / 47; Pulse 63; Resp 27; Pulse Ox 100% on 4 lpm NC; rb1 10:52 BP 187 / 61; Pulse 76; Resp 29; Pulse Ox 99% on 4 lpm NC; rb1 11:51 BP 183 / 57; Pulse 72; Resp 19; Pulse Ox 99% on R/A; rb1 12:45 BP 178 / 61; Pulse 64; Resp 18; Pulse Ox 100% on R/A; rb1 09:10 Body Mass Index 20.97 (50.35 kg, 154.94 cm) rb1 ED Course: 09:04 Patient arrived in ED. as 09:10 Patient has correct armband on for positive identification. Bed in low position. Call rb1 light in reach. Side rails up X 1. monitoring manager on. Pulse ox on. NIBP on. 09:11 Triage completed. ss 09:12 Arm band placed on right wrist. ss 09:12 Missed attempt(s): 22 gauge in right antecubital area. Attempted by JEANNETTE Dempsey rb1 student.. 09:13 Sofia Kelsey FNP-C is PHCP. kb 09:13 Alfredo Evans MD is Attending Physician. kb 09:20 Shelby Salmon, RN is Primary Nurse. ss 09:26 Heidi Hong, RN is Primary Nurse. rb1 09:30 Inserted saline lock: 22 gauge in right antecubital area, using aseptic technique. rb1 Blood collected. 09:43 X-ray completed. Portable x-ray completed in exam room. Patient tolerated procedure kp1 well. 10:06 Basic Metabolic Panel Sent. ag 10:06 BNP Sent. ag 10:06 CBC with Diff Sent. ag 10:07 Ckmb Sent. ag 10:07 CPK Sent. ag 10:07 LFT's Sent. ag 10:07 Magnesium Sent. ag 10:07 PT-INR Sent. ag 10:07 Ptt, Activated Sent. ag 10:07 Troponin (emerg Dept Use Only) Sent. ag 10:07 EKG done, by ED staff, reviewed by Alfredo Evans MD. ag 10:51 Adelfo Orr DO is Hospitalizing Provider. kb 11:45 XRAY Chest (1 view) Sent. ag 12:45 No provider procedures requiring assistance completed. Patient admitted, IV remains in rb1 place. Administered Medications: 09:36 Drug: Xopenex (3) 1.25 mg Route: Inhalation; rb1 09:36 Drug: AtroVENT Aerosol 0.5 mg Route: Inhalation; rb1 Outcome: 10:52 Decision to Hospitalize by Provider. kb 12:45 Patient left the ED. rb1 12:45 Admitted to Med/surg accompanied by tech, family with patient, via wheelchair, room rb1 229, with chart, Report called to VIGNESH Sullivan 12:45 Condition: stable 12:45 Instructed on the need for admit. Signatures: Sofia Kelsey, AQUACULTURE PROGRAM DIRECTOR-C AQUACULTURE PROGRAM DIRECTOR-Tasha Burgess Shelby, RN RN Nereida Loredo Rebecca, VIGNESH RN rb1 Rosa Rowan kp1 Corrections: (The following items were deleted from the chart) 09:40 09:11 BP 182 / 52; Pulse 64bpm; Resp 19bpm; Pulse Ox 96% 5 lpm Nasal Cannula; ag ag 10:00 09:59 Abuse screen: Denies threats or abuse. rb1 rb1 10:00 09:59 Nutritional screening: No deficits noted. rb1 rb1 10: 09:59 Tuberculosis screening: No symptoms or risk factors identified. rb1 rb1 10: 09:59 Fall Risk None identified. rb1 rb1 13:03 13:00 Patient left the ED. rb1 rb1
[2017-12-21] MEDS ORDERED: ONDANSETRON 4 MG/2 ML VIAL IV PRN (11:23)
[2017-12-21] MEDS ORDERED: HYDRALAZINE HCL 20 MG/ML VIAL IV PRN (11:23)
[2017-12-21] MEDS ORDERED: ACETAMINOPHEN 500 MG TAB PO PRN (11:23)
[2017-12-21] MEDS: INSULIN -REGULAR HUMAN 50 UNIT/0.5 ML ML SQ SCH ×3 (11:30→21:00)
[2017-12-21] MEDS ORDERED: GLUCAGON 1 MG/VIAL IM PRN (11:33)
[2017-12-21] MEDS ORDERED: D50W 25 GM/50 ML SYRINGE IV PRN (11:33)
--- NOTE | 2017-12-21 11:55 | P.HP ---
Certification for Inpatient Patient admitted to: Observation With expected LOS: <2 Midnights Patient will require the following post-hospital care: None Practitioner: I am a practitioner with admitting privileges, knowledge of patient current condition, hospital course, and medical plan of care. Services: Services provided to patient in accordance with Admission requirements found in Title 42 Section 412.3 of the Code of Federal Regulations Patient History Date of Service: 12/21/17 Primary Care Provider: Cristin Still NP; Nephrology-Dr. Sneed Reason for admission: Shortness of breath History of Present Illness: 77-year-old female presented to emergency room with shortness of breath. The patient apparently went to dialysis. She was having increasing shortness of breath. She was found to have room-air saturations of 85%. Due to her shortness of breath. She was sent the emergency room for further evaluation. Patient with history of end-stage renal disease, atrial fibrillation and diastolic CHF. Patient has been non compliant with her fluid restriction. This was confirmed with family. Patient also with history of CAD. She does use home oxygen but apparently did not have her portable oxygen when she went to the dialysis center. In the ER she was found to have room-air saturations of 85%. Her oxygen improved. Patient was tachypneic. Chest x-ray shows volume overload. On lab white count 10.5, hemoglobin 9.1. Sodium 134, potassium 5.0. Beginning 22, creatinine 5.17 with a GFR of 8. BNP 4812. Troponin less than 0.03. The patient was admitted for further evaluation and treatment. When I saw the patient the ER, she appeared stable. She did have tachypnea but she was not in any significant respiratory distress Allergies No Known Drug Allergies Allergy (Verified 11/05/17 13:40) Unknown Home medications list reviewed: Yes Home Medications: Atorvastatin Calcium [Lipitor*] 20 mg PO DAILY 10/15/17 Amiodarone HCl [Pacerone] 200 mg PO DAILY #30 tablet 10/19/17 Calcitrol [Rocaltrol*] 0.5 mcg PO DAILY #30 cap 10/19/17 Cholecalciferol (Vitamin D3) [Vitamin D 5,000 IU Cap*] 5,000 unit PO DAILY #30 cap 10/19/17 Insulin Aspart [Novolog Flexpen] See Protocol SQ ACHS 11/05/17 Sevelamer Carbonate [Renvela*] 800 mg PO TID 11/05/17 Benzonatate [Tessalon Perle*] 100 mg PO TID PRN #30 cap 11/10/17 Pantoprazole [Protonix Tab*] 40 mg PO DAILYAC #30 tab 11/10/17 Doxycycline Hyclate 100 mg PO BID #14 tablet 12/06/17 Furosemide [Lasix] 40 mg PO BID #60 tablet 12/06/17 Metoprolol Tartrate 12.5 mg PO DAILY #30 tablet 12/06/17 - Past Medical/Surgical History Diabetic: Yes -: Diabetes mellitus type 2 -: Hypertension -: Hyperlipidemia -: End-stage renal disease -: Anemia of chronic disease -: PVD -: CHF, diastolic dysfunction -: Poor compliance -: Home oxygen -: -: AV shunt placement(PATRICIA) Psychosocial/ Personal History: She is of 51 years, she has 6 children, she does not work. - Family History Mother -: Cancer Sister -: Hypertension, Diabetes Notes: type2 - Social History Smoking Status: Never smoker Alcohol use: No CD- Drugs: No Caffeine use: No Place of Residence: Home Review of Systems General: Weakness, Malaise, As per HPI Eyes: Unremarkable ENT: Unremarkable Respiratory: Cough, Shortness of Breath, SOB with Excertion, As per HPI Cardiovascular: Edema, As per HPI Gastrointestinal: Unremarkable Genitourinary: Unremarkable Musculoskeletal: Pedal edema, Unremarkable Integumentary: Unremarkable Neurological: Unremarkable Lymphatics: Unremarkable Physical Examination - Physical Exam General: Alert, In no apparent distress, Oriented x3, Cooperative HEENT: Atraumatic, Normocephalic, PERRLA, Mucous membr. moist/pink Neck: Supple Respiratory: Diminished (To the bases), Crackles/rales (Bilateral) Cardiovascular: Regular rate/rhythm Gastrointestinal: Normal bowel sounds, Soft and benign, Non-distended, No tenderness, No masses, No rebound, No guarding Musculoskeletal: No erythema, No tenderness, No warmth Integumentary: No erythema, No warmth, No cyanosis, Tenderness/swelling ( Nonpitting edema to the lower extremities bilateral) Neurological: Normal speech, Normal strength at 5/5 x4 extr, Normal tone, Normal affect Lymphatics: No axilla or inguinal lymphadenopathy - Studies Laboratory Data (last 24 hrs) 12/21/17 09:33: PT 13.7 H, INR 1.16, APTT 31.4 12/21/17 09:33: WBC 10.5, Hgb 9.1 L, Hct 28.9 L, Plt Count 294 12/21/17 09:33: B-Natriuretic Peptide 4812 H 12/21/17 09:33: Sodium 134 L, Potassium 5.0, BUN 22 H, Creatinine 5.17 H*, Glucose 172 H, Magnesium 1.9, Total Bilirubin 1.1, AST 19, ALT 9 L, Alkaline Phosphatase 70 Assessment and Plan - Problems (Diagnosis) (1) CHF (congestive heart failure) Onset Date: 10/16/17 Current Visit: No Status: Acute Plan: Patient with acute on chronic diastolic CHF exacerbation. Patient with pulmonary edema noted on chest x-ray. Patient will need dialysis today. Will continue with Lasix 40 mg IV twice daily. Will teach on 1500 cc per day fluid restriction. Patient non compliant with this at home. This was confirmed with family. I had a long discussion with the patient concerning this. She understands this. Advanced directives were addressed in detail with the patient. and daughter were at bedside. Patient wishes to be DNR. Will continue to treat her current condition. Anticipate discharge likely tomorrow if much improved. Patient uses oxygen at home. Nephrology consulted to further address. Qualifiers: Heart failure type: diastolic Heart failure chronicity: acute on chronic Qualified Code(s): I50.33 - Acute on chronic diastolic (congestive) heart failure (2) Pulmonary edema Onset Date: 10/16/17 Current Visit: No Status: Acute Plan: Continue as above. Qualifiers: Chronicity: acute (3) Shortness of breath Current Visit: No Status: Acute Plan: Continue with above plan of care. (4) Atrial fibrillation Onset Date: 08/22/16 Current Visit: No Status: Chronic Plan: Will continue with medication. Patient not on chronic anti coagulation therapy due to risk for fall, noncompliance and bleeding. This has been addressed multiple times in the past. Will continue with DVT prophylaxis. Qualifiers: (5) Coronary artery disease Onset Date: 10/02/17 Current Visit: No Status: Chronic Plan: Will continue with her medication. (6) Diabetes mellitus Onset Date: 10/02/17 Current Visit: No Status: Chronic Plan: Will provide sliding scale. Will monitor closely. Qualifiers: Diabetes mellitus type: type 2 Diabetes mellitus penitentiary insulin use: unspecified intermediate teacher insulin use status Diabetes mellitus complication status : with kidney complications Diabetes mellitus complication detail: with chronic kidney disease Chronic kidney disease stage: on chronic dialysis Qualified Code(s): E11.22 - Type 2 diabetes mellitus with diabetic chronic kidney disease; N18.6 - End stage renal disease; N18.6 - End stage renal disease ; N18.6 - End stage renal disease; N18.6 - End stage renal disease; Z99.2 - Dependence on renal dialysis; Z99.2 - Dependence on renal dialysis; Z99.2 - Dependence on renal dialysis; Z99.2 - Dependence on renal dialysis (7) End stage renal disease Onset Date: 10/02/17 Current Visit: No Status: Chronic Plan: Patient will need dialysis today. Nephrology consulted. (8) Hyperlipidemia Onset Date: 10/02/17 Current Visit: No Status: Chronic Plan: Will continue with her medication. Qualifiers: Hyperlipidemia type: mixed hyperlipidemia Qualified Code(s): E78.2 - Mixed hyperlipidemia (9) Hypertension Onset Date: 10/02/17 Current Visit: No Status: Chronic Plan: Will provide medication. Will need to confirm medication from home. Qualifiers: Hypertension type: essential hypertension (10) Hypothyroidism Current Visit: No Status: Suspected Plan: Patient with subclinical hypothyroidism in the past. This will need to be monitored as an outpatient. Qualifiers: Discharge Plan: Home Plan to discharge in: 24 Hours - Advance Directives Does patient have a Living Will: No Does patient have a Durable POA for Healthcare: No - Code Status/Comfort Care Code Status Assessed: Yes (Confirmed with /daughter) Time Spent Managing Pts Care (In Minutes): 55
[2017-12-21] MEDS: ENOXAPARIN 30 MG/0.3 ML SQ SCH (12:00)
[2017-12-21 13:40] LABS: CKMB Creatine Kinase MB 1.1 ng/ml (0.3-4.0)
[2017-12-21 16:09] VITALS: BMI 20.9
[2017-12-21] MEDS ORDERED: BENZONATATE 100 MG CAP PO PRN (16:35)
[2017-12-21] MEDS ORDERED: PNEUMOCOCCAL VACCINE 0.5 ML IMVAC ONE (17:00)
[2017-12-21] MEDS ORDERED: NA CHLORIDE 0.9% 1,000 ML IV PRN (18:38)
[2017-12-21] MEDS ORDERED: EPOETIN ALFA 10,000 UNIT/ML VIAL SQ SCH (19:00)
[2017-12-21] MEDS ORDERED: ALBUMIN HUMAN 25% 50 ML IV SCH (19:00)
[2017-12-21] MEDS ORDERED: ATORVASTATIN 40 MG TAB PO SCH (21:00)
[2017-12-21 21:15] LABS: CKMB Creatine Kinase MB 1.3 ng/ml (0.3-4.0)
[2017-12-22] MEDS: FUROSEMIDE 40 MG/4 ML VIAL IV SCH ×2 (01:56→10:23)
[2017-12-22 05:09] LABS: Absolute Lymphocytes (CBC) 0.8 K/uL (0.7-4.9); Absolute Monocytes 0.9 K/uL (0.1-1.3); Basophils % 0.6 % (0-1.3); Eosinophils % 0.4 % (0-4.4); Hematocrit 27.8 % (36.0-45.0); Lymphocytes % 6.8 % (15.3-44.8); MCH 29.2 pg (27.0-35.0); MCV 89.3 fL (80-100); MPV 8.7 fL (7.6-11.3); Monocytes % 7.8 % (3.3-12.3); RBC Red Blood Cell Count 3.11 M/uL (3.86-4.86)
--- NOTE | 2017-12-22 05:15 | EKG ---
Test Date: 2017-12-21 Test Time: 09:59:38 Roads Supervisor: SANGEETA MEASUREMENT RESULTS: Intervals: Rate: 66 WV: 140 QRSD: 124 QT: 448 QTc: 469 [place]: P: 30 WV: 140 QRS: 4 T: 5 INTERPRETIVE STATEMENTS: Normal sinus rhythm Right bundle branch block Abnormal ECG Compared to ECG 12/05/2017 02:37:58 No significant changes Electronically Signed On 12-22-17 05:14:28 CDT by Sameer Newsome
[2017-12-22 05:26] LABS: CKMB Creatine Kinase MB 0.9 ng/ml (0.3-4.0)
[2017-12-22 05:28] LABS: Magnesium 1.7 mg/dL (1.8-2.5); Potassium 3.8 mEq/L (3.6-5.0)
[2017-12-22] MEDS ORDERED: PANTOPRAZOLE 40MG TABLET PO SCH (07:30)
[2017-12-22] MEDS: INSULIN -REGULAR HUMAN 50 UNIT/0.5 ML ML SQ SCH ×2 (07:30→11:30)
[2017-12-22] MEDS ORDERED: PRASUGREL (EFFIENT) 10 MG TAB PO SCH ×2 (09:00→11:00)
[2017-12-22] MEDS ORDERED: ASPIRIN EC 81 MG TAB PO SCH (09:00)
[2017-12-22] MEDS: ENOXAPARIN 30 MG/0.3 ML SQ SCH (10:23)
--- NOTE | 2017-12-22 10:34 | P.DS ---
Admission Date: 12/21/17 Discharge Date: 12/22/17 Primary Care Provider: Cristin Still NP; Nephrology-Dr. Sneed Disposition: ROUTINE DISCHARGE Discharge Condition: GOOD Reason for Admission: Shortness of breath Consultations: Nephrology - Problems (1) CHF (congestive heart failure) Onset Date: 10/16/17 Current Visit: No Status: Acute Qualifiers: Heart failure type: diastolic Heart failure chronicity: acute on chronic Qualified Code(s): I50.33 - Acute on chronic diastolic (congestive) heart failure (2) Pulmonary edema Onset Date: 10/16/17 Current Visit: No Status: Acute Qualifiers: Chronicity: acute (3) Shortness of breath Current Visit: No Status: Acute (4) Atrial fibrillation Onset Date: 08/22/16 Current Visit: No Status: Chronic Qualifiers: (5) Coronary artery disease Onset Date: 10/02/17 Current Visit: No Status: Chronic (6) Diabetes mellitus Onset Date: 10/02/17 Current Visit: No Status: Chronic Qualifiers: Diabetes mellitus type: type 2 Diabetes mellitus long-term insulin use: unspecified long-term insulin use status Diabetes mellitus complication status : with kidney complications Diabetes mellitus complication detail: with chronic kidney disease Chronic kidney disease stage: on chronic dialysis Qualified Code(s): E11.22 - Type 2 diabetes mellitus with diabetic chronic kidney disease; N18.6 - End stage renal disease; N18.6 - End stage renal disease ; N18.6 - End stage renal disease; N18.6 - End stage renal disease; Z99.2 - Dependence on renal dialysis; Z99.2 - Dependence on renal dialysis; Z99.2 - Dependence on renal dialysis; Z99.2 - Dependence on renal dialysis (7) End stage renal disease Onset Date: 10/02/17 Current Visit: No Status: Chronic (8) Hyperlipidemia Onset Date: 10/02/17 Current Visit: No Status: Chronic Qualifiers: Hyperlipidemia type: mixed hyperlipidemia Qualified Code(s): E78.2 - Mixed hyperlipidemia (9) Hypertension Onset Date: 10/02/17 Current Visit: No Status: Chronic Qualifiers: Hypertension type: essential hypertension (10) Hypothyroidism Current Visit: No Status: Suspected Qualifiers: Brief History of Present Illness: 77-year-old female presented to emergency room with shortness of breath. The patient apparently went to dialysis. She was having increasing shortness of breath. She was found to have room-air saturations of 85%. Due to her shortness of breath. She was sent the emergency room for further evaluation. Patient with history of end-stage renal disease, atrial fibrillation and diastolic CHF. Patient has been non compliant with her fluid restriction. This was confirmed with family. Patient also with history of CAD. She does use home oxygen but apparently did not have her portable oxygen when she went to the dialysis center. In the ER she was found to have room-air saturations of 85%. Her oxygen improved. Patient was tachypneic. Chest x-ray shows volume overload. On lab white count 10.5, hemoglobin 9.1. Sodium 134, potassium 5.0. Beginning 22, creatinine 5.17 with a GFR of 8. BNP 4812. Troponin less than 0.03. The patient was admitted for further evaluation and treatment. When I saw the patient the ER, she appeared stable. She did have tachypnea but she was not in any significant respiratory distress Hospital Course: Patient presented with shortness of breath secondary to pulmonary edema. Patient is not been compliant with her fluid restriction and medication at home. Patient has end-stage renal disease, CHF with diastolic dysfunction. Patient did receive dialysis yesterday with good improvement. At discharge she was without any significant shortness of breath. She will continue with home oxygen to maintain sats above 90%. Patient will need to be compliant with a 1500 cc per day fluid restriction and low-salt diet. This was educated in detail with the patient with family present. Patient will continue with Lasix 40 mg 1 pill twice daily. She will continue with her dialysis on her regularly scheduled days. Recommendations for the patient follow up with nephrology within 1 week to continue to monitor her progress. Patient with hyperlipidemia. She will continue with her medication. Patient with history of CAD. She will continue with her medication. Patient with history of atrial fibrillation. She is not on chronic anti coagulation therapy due to risk for fall, compliance and bleeding. Patient will continue with her current medications. Patient with history of hypertension. Blood pressure stable without any medication. This can be monitored closely as an outpatient. Recommendation is to maintain blood pressures less 150/80. Further adjustment can be done by nephrology. Patient with history of diabetes. She is diet controlled. Recommendation is to maintain blood per sugars less than 140 fasting and less than 200 after meals. Further adjustment can be done by her PCP. Vital Signs/Physical Exam: Temp Pulse Resp BP Pulse Ox 98.1 F 71 18 129/62 92 12/22/17 08:00 12/22/17 10:23 12/22/17 08:00 12/22/17 10:23 12/22/17 08:00 General: Alert, In no apparent distress, Oriented x3, Cooperative HEENT: Atraumatic Neck: Supple Respiratory: Clear to auscultation bilaterally, Normal air movement Cardiovascular: Normal pulses, Regular rate/rhythm Gastrointestinal: Normal bowel sounds, Soft and benign, Non-distended, No masses , No rebound, No guarding Musculoskeletal: No erythema, No tenderness, No warmth Integumentary: No tenderness/swelling, No erythema, No warmth, No cyanosis Neurological: Normal speech, Normal strength at 5/5 x4 extr, Normal tone, Normal affect Laboratory Data at Discharge: WBC 11.9 K/uL (4.3-10.9) H 12/22/17 04:25 Hgb 9.1 g/dL (12.0-15.0) L 12/22/17 04:25 Hct 27.8 % (36.0-45.0) L 12/22/17 04:25 Plt Count 276 K/uL (152-406) 12/22/17 04:25 PT 13.7 SECONDS (9.5-12.5) H 12/21/17 09:33 INR 1.16 12/21/17 09:33 APTT 31.4 SECONDS (24.3-36.9) 12/21/17 09:33 Sodium 137 mEq/L (135-145) 12/22/17 04:25 Potassium 3.8 mEq/L (3.6-5.0) 12/22/17 04:25 BUN 8 mg/dL (6-20) 12/22/17 04:25 Creatinine 2.77 mg/dL (0.44-1.00) H D 12/22/17 04:25 Glucose 136 mg/dL (65-120) H 12/22/17 04:25 Magnesium 1.7 mg/dL (1.8-2.5) L 12/22/17 04:25 Total Bilirubin 1.1 mg/dL (0.3-1.2) 12/21/17 09:33 AST 19 IU/L (10-42) 12/21/17 09:33 ALT 9 IU/L (10-60) L 12/21/17 09:33 Alkaline Phosphatase 70 IU/L (42-121) 12/21/17 09:33 Troponin I 0.03 ng/mL (<0.03) 12/22/17 04:25 B-Natriuretic Peptide 4812 pg/ml (<=100) H 12/21/17 09:33 Home Medications: Atorvastatin Calcium [Lipitor*] 40 mg PO DAILY 10/15/17 Cholecalciferol (Vitamin D3) [Vitamin D 5,000 IU Cap*] 5,000 unit PO DAILY #30 cap 10/19/17 Furosemide [Lasix] 40 mg PO BID #60 tablet 12/06/17 Docusate Sodium 100 mg PO DAILY 12/21/17 Prasugrel Hydrochloride [Effient*] 10 mg PO DAILY 12/21/17 Benzonatate [Tessalon Perle*] 200 mg PO TID PRN #30 cap 12/22/17 New Medications: Benzonatate [Tessalon Perle*] 200 mg PO TID PRN #30 cap PRN Reason: Cough Patient Discharge Instructions: 1. Patient will need to follow up with her PCP in 1 week. 2. Patient presented with shortness of breath secondary to pulmonary edema. Patient received dialysis. She has a history of ESRD and CHF, diastolic dysfunction. At discharge she will continue with home oxygen to maintain sats above 90%. Compliance with a 1500 cc per day fluid restriction and low-salt diet will need to be enforced. Patient will continue with Lasix 40 mg 1 pill twice daily. Patient will continue with her dialysis on her regularly scheduled days. Recommendation is for the patient follow up with nephrology within 1 week to monitor her progress. 3. Patient with hyperlipidemia. She will continue with her medication. 4. Patient with history of CAD. She will continue with her medication. 5. Patient with history of atrial fibrillation. She is not on chronic anti coagulation therapy due to risk for fall, compliance and bleeding. Patient will continue with her current medications. Diet: Renal Activity: Fall precautions Time spent managing pt's care (in minutes): 55
[2017-12-22 12:17] VITALS: BP 144/64; TEMP 97.6
[2017-12-22] MEDS ORDERED: PNEUMOCOCCAL VACCINE 0.5 ML IMVAC ONE (14:00)
[2017-12-22 14:16] VITALS: O2SAT 94
== END 2017-12-22 13:54 | disposition home or self-care (01) ==
LOC: ER 09:01 → ERHOLD 10:54 → 2ND 12:38
PROVIDERS: ADMIT Family Medicine; ATTEND Family Medicine
PROC: 5A1D70Z Performance of Urinary Filtration, Intermittent, Less than 6 Hours Per Day (ICD-10-PCS; principal; 2017-12-21)
DX: I13.2 Hypertensive heart and chronic kidney disease with heart failure and with stage 5 chronic kidney disease, or end stage renal disease (principal); E11.22 Type 2 diabetes mellitus with diabetic chronic kidney disease; N18.6 End stage renal disease; I50.33 Acute on chronic diastolic (congestive) heart failure; I48.2 Chronic atrial fibrillation; I25.10 Atherosclerotic heart disease of native coronary artery without angina pectoris; E78.5 Hyperlipidemia, unspecified; Z23 Encounter for immunization
CPT/HCPCS: 36415; 71045; 80048 ×2; 80076; 82550 ×4; 82553 ×4; 82962 ×4; 83735 ×2; 83880; 84484 ×4; 85025 ×2; 85610; 85730; 90670; 90935; 93005; 97163; 99285; G0009; G0378 ×2; J0360; J1650 ×2; Q4081; G0257

== ENCOUNTER 2017-12-26 07:01 | Inpatient (IN) | payer OTHER ==
--- OUTSIDE RECORDS SUMMARY | 2017-12-26 07:04 | XMS REPORT | Clinical Summary ---
:1940 Author Organization [facility] Address [address] [place] [address] Care Team Providers Name Role Phone Garo [...] percutaneous 01/09/2017 coronary angioplasty (Primary Dx) after 12/25/2016 Immunizations Name Dates Previously Given Next Due [...] are in [facility] [employer] the results (80104) section. after 12/25/2016 Results POC glucose (01/09/2017 4:35 PM)Only the most recent of27 resultswithin the time period is included. Component Value Ref Range POC glucose 138 (H) 65 - 99 mg/dL Comment: [facility] Notified RN Meter ID: [id number] Propagation Manager: Henri Boudreaux Specimen Performing Laboratory [facility] DEPARTMENT OF PATHOLOGY AND GENOMIC MEDICINE [address] [place] [address] Prothrombin time with INR (01/09/2017 4:00 AM)Only [...] vein thrombosis/pulmonary embolism. Specimen Performing Laboratory Blood [facility] DEPARTMENT OF PATHOLOGY AND [facility] MEDICINE [address] [place] [address] CBC with platelet and differential (01/09/2017 3:59 [...] (promyelocytes, myelocytes, metamyelocytes) Specimen Performing Laboratory Blood [facility] DEPARTMENT OF PATHOLOGY AND GENOMIC MEDICINE [address] [place] [address] Estimated GFR (01/09/2017 3:56 AM)Only the most [...] and Americans. Specimen Performing Laboratory Plasma specimen [facility] DEPARTMENT OF PATHOLOGY AND GENOMIC MEDICINE [address] [place] [address] Comprehensive metabolic panel (01/09/2017 3:56 AM)Only the [...] 1.2 mg/dL Specimen Performing Laboratory Plasma specimen [facility] DEPARTMENT OF PATHOLOGY AND GENOMIC MEDICINE [address] [place] [address] Cancer antigen 19-9 (01/08/2017 4:00 AM) Component Value Ref Range CA 19-9 <1 0 - 35 U/mL Comment: The Praveen Marga 8000 CA19-9 immunoassay was used. Results obtained with different assay methods or kits should not be used interchangeably and may be different. Specimen Performing Laboratory Plasma specimen [address] [address] Alpha fetoprotein (01/08/2017 4:00 AM) Component Value Ref Range Alpha fetoprotein 3.3 0.0 - 8.3 ng/mL Comment: The Marga 8000 AFP immunoassay was used. Results obtained with different assay methods or kits should not be used interchangeably and may be different. Specimen Performing Laboratory Serum [address] [address] Carcinoembryonic antigen (CEA) (01/08/2017 4:00 AM) Component Value Ref Range CEA 4.7 (H) 0.0 - 3.8 ng/mL Comment: Reference range for heavy smokers:0.0 - 5.5 ng/mL The PRAVEEN Marga 8000 CEA immunoassay was used. Results obtained with different assay methods or kits should not be used interchangeably and may be different. Specimen Performing Laboratory Serum [address] [address] Lipase level (01/06/2017 3:48 AM)Only the most recent of3 resultswithin the time period is included. Component Value Ref Range Lipase 129 (H) 13 - 60 U/L Specimen Performing Laboratory Plasma specimen [address] [address] Bilirubin direct (01/06/2017 3:48 AM) Component Value Ref Range Bilirubin direct <0.2 0.0 - 0.3 mg/dL Specimen Performing Laboratory Plasma specimen [address] [address] Amylase level (01/06/2017 3:48 AM)Only the most recent of3 resultswithin the time period is included. Component Value Ref Range Amylase 69 13 - 73 U/L Specimen Performing Laboratory Plasma specimen [address] [address] Reticulocyte count (01/05/2017 11:20 AM) Component Value Ref Range Retic %, auto 2.7 (H) 0.5 - 2.1 % Retic absolute, auto 0.0960 0.0210 - 0.1155 m/uL Specimen Performing Laboratory Blood [facility] PATHOLOGY [address] [address] Parathyroid hormone (01/05/2017 11:20 AM) Component Value Ref Range PTH 254 (H) 15 - 65 pg/mL Specimen Performing Laboratory Blood [facility] PATHOLOGY [address] [address] Total iron binding capacity (01/05/2017 10:38 AM) Component Value Ref Range Iron level 28 (L) 37 - 145 ug/dL Iron binding capacity 174 (L) 200 - 400 ug/dL % Saturation 16.1 15.0 - 38.0 % Specimen Performing Laboratory Plasma specimen [facility] PATHOLOGY [address] [address] Ferritin level (01/05/2017 10:38 AM) Component Value Ref Range Ferritin level 5,045 (H) 13 - 150 ng/mL Specimen Performing Laboratory Plasma specimen [facility] PATHOLOGY [address] [address] Hepatitis B surface antigen (01/05/2017 7:50 AM) Component Value Ref Range Hepatitis B surface Ag Non-reactive Non-reactive Specimen Performing Laboratory Blood [facility] PATHOLOGY [address] [address] Basic metabolic panel (01/05/2017 7:50 AM) Component [...] 10.2 mg/dL Specimen Performing Laboratory Plasma specimen [facility] DEPARTMENT PATHOLOGY [address] [address] MRI Abdomen Wo Contrast (01/04/2017 9:42 PM) Specimen Performing Laboratory [address] [address] Narrative Examination:MRI ABDOMEN WO CONTRAST Clinical History: [...] gallstone or gallbladder wall thickening is seen. [facility]-[id number] Procedure Note [facility], Radiology Results Incoming - 01/04/2017 10:24 PM [...] gallstone or gallbladder wall thickening is seen. [facility]-[id number] CT Abdomen Pelvis W Wo Contrast (01/04/2017 7:32 PM) Specimen Performing Laboratory [facility] [address] [place] [address] Narrative EXAMINATION:CT ABDOMEN PELVIS W WO CONTRAST [...] nodularity. Symmetrical pancreatic enhancement following intravenous contrast. [facility]-[id number] Procedure Note Interface, Radiology Results Incoming - [...] nodularity. Symmetrical pancreatic enhancement following intravenous contrast. [facility]-[id number] Calcium level (01/04/2017 3:56 PM) Component Value Ref Range Calcium 8.4 (L) 8.8 - 10.2 mg/dL Specimen Performing Laboratory Plasma specimen [facility] DEPARTMENT OF PATHOLOGY AND GENOMIC MEDICINE [address] [place] [address] Lipid panel (01/04/2017 3:56 PM)Only the most recent of2 resultswithin the time period is included. Component Value Ref Range Cholesterol 105 <200 mg/dL Triglycerides 276 (H) <150 mg/dL HDL cholesterol 24 (L) >40 mg/dL LDL cholesterol 35Comment: Result obtained by direct LDL <100 mg/dL measurement Lipid panel interpretation SeeBelow Comment: Total Cholesterol (mg/dL) <200 Desirable 753-332Uddmanormf-sptg >=240High Triglycerides (mg/dL) <150 Normal 282-635Ekoamzfnhz-gadf 200-499High >=500Very high HDL Cholesterol (mg/dL) <40Low (male) <40Low (female) LDL Cholesterol (mg/dL) <100 Optimal 100-129Near or above optimal 444-978Ddnozaqdtp-krek 160-189High >=190Very high Risk Catergories that modify [...] (>=200 mg/dL) Specimen Performing Laboratory Plasma specimen [facility] DEPARTMENT OF PATHOLOGY AND [facility] MEDICINE [address] [place] [address] CBC hemogram (01/04/2017 5:36 AM) Component Value [...] 0.30 /100 WBC Specimen Performing Laboratory Blood [facility] DEPARTMENT OF PATHOLOGY AND GENOMIC MEDICINE [address] [place] [address] US Abdomen Complete (01/03/2017 10:41 PM) Specimen Performing Laboratory [facility] [address] [place] [address], [place] [address] Narrative EXAM: US ABDOMEN COMPLETE CLINICAL DATA:evaluate [...] for the possibility of medical renal disease. [facility]-[id number] Procedure Note [facility], Radiology Results Incoming - 01/03/2017 11:39 PM [...] for the possibility of medical renal disease. [facility]-[id number] Manual differential (01/03/2017 8:46 PM)Only the most [...] slide review Beka adequate Specimen Performing Laboratory [facility] DEPARTMENT OF PATHOLOGY AND GENOMIC MEDICINE [address] [place] [address] Echocardiogram complete w contrast and 3D if needed (01/03/2017 3:05 PM) Specimen Performing Laboratory [facility] [address] [place] [address] Narrative Echocardiography Report [address] [place] [address] Pat.Name:ROMAINE TRONCOSO Pat.ID:[id number] St.Date: 01/03/2017Refer.MD:GARO SHAFFER MD Exam Time: 1:14:00 PMStudy Type:Routine Echo Height:61inWeight:155lb BSA: 1.7 d0FHOLdj:1940,76Y Sex: FEMALEBP:133/67 Sonogrphr: Pedro Ruiz, ALEXIA, RDROGELIO LAURENT Stat.:Inpatient Room:[address] Status:Final Echo Event ID:[id number] Order ID:[id number] Reason for Study:Chest pain, suspected cardiac etiology [...] RAPof 5 mmHg. MEASUREMENTS: 2D Parasternal [place] Ao An1.8 cmIVSd 1 cm LVOT 1.8 cmLVPWd1.1 cm LVIDd3.7 cmIndex 2.2 cm/m LA Ds4.2 cm LVIDs2.4 cmAo Rtd 2.6 cm Index1.5 cm/m LV%fs 35.2 % LA Sng Plane LA Area 19.5 cm2(8.8-23.4) LA Vol55.6 ml Index32.7 ml/m LA LngAx 5.6 cm DOPPLER LVOT Stroke Vol LVOT 1.9 cmLVOT CO4.4 l/min LVOT TVI22.8 cmLVOT CI2.6 l/m/m2 LVOT Tm316 ozwvJB48 bpm LVOT SV 64.7 ml Signed 01/03/2017 05:18 PM Rosamaria Topete M.D. Procedure Note Interface, Radiology Results In - 01/03/2017 5:18 PM CDT Echocardiography Report [address] [place] [address] Pat.Name: ROMAINE TRONCOSO Pat.ID: [id number] .Date: 01/03/2017 Refer.MD: GARO SHAFFER MD Exam Time: 1:14:00 PM Study Type:Routine Echo Height: 61in Weight: 155lb BSA: 1.7 m2 Age: 6 1940,76Y Sex: FEMALE BP: 133/67 Sonogrphr: ALEXIA Stevens, ROGELIO JOSHUA Pat. Stat.:Inpatient Room: [facility] Study Status:Final Echo Event ID:[id number] Order ID: [id number] Reason for Study:Chest pain, suspected cardiac etiology [...] of 5 mmHg. MEASUREMENTS: 2D Parasternal [place] Ao An 1.8 cm IVSd 1 cm [...] Contrast (01/03/2017 8:46 AM) Specimen Performing Laboratory [facility] [id number] [place] [address] Narrative EXAMINATION:CT ABDOMEN PELVIS W CONTRAST CLINICAL [...] incidental findings as above. Incidental Abdominal findings [facility] PQRS #405 required reporting elements: Liver < 0.5 cm: none Recommendation:n/a Cystic Renal < 1 cm: as above Recommendation:[No imaging followup is recommended, unless clinically indicated.] Adrenal < 1 cm:none Recommendation:n/a [facility]-[id number] Procedure Note Hm Interface, Radiology Results Incoming [...] incidental findings as above. Incidental Abdominal findings [facility] PQRS #405 required reporting elements: Liver < 0.5 cm: none Recommendation: n/a Cystic Renal < 1 cm: as above Recommendation: [No imaging followup is recommended, unless clinically indicated.] Adrenal < 1 cm: none Recommendation: n/a [facility]-[id number] XR Chest 1 Vw Portable (01/03/2017 6:28 AM) Specimen Performing Laboratory [address] [address] Narrative EXAMINATION:XR CHEST 1 VW PORTABLE CLINICAL HISTORY:SHORTNESS OF BREATH COMPARISON:None IMPRESSION: Cardiomediastinal silhouette is slightly enlarged. Pulmonary vasculature is within normal limits. Mild to moderate elevation of the right hemidiaphragm. Mild bibasilar atelectasis. No lobar consolidation or pleural effusion identified on this frontal view. Bones are demineralized. [facility]-[id number] Procedure Note Interface, Radiology Results Incoming - 01/03/2017 7:17 AM CDT EXAMINATION: XR CHEST 1 VW PORTABLE CLINICAL HISTORY: SHORTNESS OF BREATH COMPARISON: None IMPRESSION: Cardiomediastinal silhouette is slightly enlarged. Pulmonary vasculature is within normal limits. Mild to moderate elevation of the right hemidiaphragm. Mild bibasilar atelectasis. No lobar consolidation or pleural effusion identified on this frontal view. Bones are demineralized. [facility]-[id number] Blood culture, aerobic & anaerobic (01/03/2017 2:10 AM)Only the most recent of2 resultswithin the time period is included. Component Value Ref Range Blood culture isolate No growth after 5 days of incubation. Comment: Specimen Information Specimen Source: Blood Specimen Site: Right Hand Specimen Performing Laboratory Blood - Right [facility] DEPARTMENT OF PATHOLOGY AND GENOMIC MEDICINE [address] [place] [address] Troponin (01/03/2017 1:30 AM) Component Value Ref Range Troponin <0.30 0.00 - 0.30 ng/mL Comment: 0.30 - 1.49 ng/mlMay indicate increased risk of acute coronary syndrome. >=1.5 ng/mlConsistent with acute myocardial infarction. The diagnostic value of a single normal or non-diagnostic result is questionable.Serial samples at 2-6 hour intervals are required to rule out acute myocardial injury. Specimen Performing Laboratory Plasma specimen [facility] DEPARTMENT OF PATHOLOGY AND [address] [address] Partial thromboplastin time, activated (01/03/2017 1:30 AM) Component Value Ref Range PTT 38.5 (H) 23.0 - 36.0 sec Comment: PTT therapeutic range for unfractionated heparin is 61.0-112.0 seconds which corresponds to Anti-Xa 0.3-0.7 U/ml. Specimen Performing Laboratory Blood [facility] DEPARTMENT PATHOLOGY [address] [address] Thyroid stimulating hormone (01/03/2017 1:30 AM) Component Value Ref Range TSH 11.61 (H) 0.27 - 4.20 uIU/mL Specimen Performing Laboratory Plasma specimen [facility] DEPARTMENT PATHOLOGY [address] [address] T4, free (01/03/2017 1:30 AM) Component Value Ref Range T4, free 1.1 0.9 - 1.7 ng/dL Specimen Performing Laboratory Plasma specimen [facility] DEPARTMENT PATHOLOGY [address] [address] Phosphorus level (01/03/2017 1:30 AM) Component Value Ref Range Phosphorus 3.5 2.4 - 4.5 mg/dL Specimen Performing Laboratory Plasma specimen [facility] DEPARTMENT OF PATHOLOGY AND [address] [address] B natriuretic peptide (01/03/2017 1:30 AM) Component Value Ref Range BNP 3,175 (H) 0 - 100 pg/mL Specimen Performing Laboratory Blood [facility] PATHOLOGY [address] [address] Magnesium level (01/03/2017 1:30 AM) Component Value Ref Range Magnesium 2.0 1.6 - 2.4 mg/dL Specimen Performing Laboratory Plasma specimen [facility] DEPARTMENT PATHOLOGY [address] [address] Lactic acid level (01/03/2017 1:30 AM) Component Value Ref Range Lactic acid 3.0 (H) 0.5 - 2.2 mmol/L Specimen Performing Laboratory Plasma specimen [facility] DEPARTMENT OF PATHOLOGY AND GENOMIC MEDICINE [address] [place] [address] ECG 12 lead (01/02/2017 10:37 PM) Component Value Ref Range Ventricular rate 96 Atrial rate 96 IN interval 134 QRSD interval 78 QT interval [...] Anterolateral leads-QT has shortened- Specimen Performing Laboratory [facility] [address] [place] [address] after 12/25/2016 Insurance Payer Benefit Plan / Group Subscriber ID Type Phone Address MEDICARE MEDICARE PART A AND B xxxxxxxxxx Medicare [place], [place] Home: [id number] [phone] [place], [place] [phone]
[2017-12-26 07:29] LABS: Arterial Blood Carboxyhemoglob 1.8 % (0-1.5); Blood O2 Saturation 90.5 % (92-98.5)
[2017-12-26 07:34] LABS: Absolute Lymphocytes (CBC) 0.7 K/uL (0.7-4.9); Absolute Monocytes 0.9 K/uL (0.1-1.3); Absolute Neutrophil 12.9 K/uL (1.8-8.0); Basophils % 0.7 % (0-1.3); Eosinophils % 0.2 % (0-4.4); Hematocrit 27.7 % (36.0-45.0); Lymphocytes % 4.6 % (15.3-44.8); MCH 29.1 pg (27.0-35.0); MCV 93.8 fL (80-100); MPV 8.1 fL (7.6-11.3); RBC Red Blood Cell Count 2.96 M/uL (3.86-4.86)
--- NOTE | 2017-12-26 07:39 | EDPHYS ---
Physician Documentation [facility] Unit Name: Chen Troncoso Age: 77 yrs Sex: Female : 1940 Arrival Date: 12/26/2017 Time: 07:04 Bed 4 Private MD: ED Physician Silvio Abel HPI: 12/26 07:41 This 77 yrs old Female presents to ER via EMS with complaints of Shortness Of jr8 Breath. 07:41 The patient has shortness of breath at rest. Onset: The symptoms/episode began/occurred jr8 acutely, today. Duration: The symptoms are continuous. The patient's shortness of breath is aggravated by supine position, talking. Associated signs and symptoms: The patient has no apparent associated signs or symptoms. Severity of symptoms: At their worst the symptoms were moderate in the emergency department the symptoms are unchanged. It is unknown whether or not the patient has had similar symptoms in the past. The patient has not recently seen a physician. 07:41 EMS was called out for respiratory distress. History of CHF and CKD. Suppose to be jr8 dialized today but could not make it due to shortness of breath . Historical: - Allergies: 07:07 NKDA; sv - Home Meds: 07:07 amiodarone 200 mg Oral tab 1 tab once daily [Active]; Lantus 100 unit/mL Sub-Q soln 26 sv units BID [Active]; Lasix 40 mg Oral tab 1 tab 3 times per day [Active]; Norvasc 10 mg Oral tab 1 tab once daily [Active]; Novolog PenFill 100 unit/mL subcutaneous crtg 5 unit [Active]; renevela 800 mg PO TID [Active]; Vitamin D3 5,000 unit Oral tab daily [Active]; - PMHx: 07:07 Anemia; CHF; Diabetes - IDDM; Dialysis; ESRD; Hyperlipidemia; Hypertension; PVD; sv - PSHx: 07:07 ; dialysis shunt-left arm; sv - Immunization history:: Adult Immunizations up to date. - Social history:: Smoking status: Patient/guardian denies using tobacco. ROS: 07:41 Eyes: Negative for injury, pain, redness, and discharge, ENT: Negative for injury, jr8 pain, and discharge, Neck: Negative for injury, pain, and swelling, Cardiovascular: Negative for chest pain, palpitations, and edema, Abdomen/GI: Negative for abdominal pain, nausea, vomiting, diarrhea, and constipation, Back: Negative for injury and pain, MS/Extremity: Negative for injury and deformity, Skin: Negative for injury, rash, and discoloration, Neuro: Negative for headache, weakness, numbness, tingling, and seizure. 07:41 Respiratory: Positive for dyspnea on exertion, orthopnea, shortness of breath. Exam: 07:41 Eyes: Pupils equal round and reactive to light, extra-ocular motions intact. Lids and jr8 lashes normal. Conjunctiva and sclera are non-icteric and not injected. Cornea within normal limits. Periorbital areas with no swelling, redness, or edema. ENT: Nares patent. No nasal discharge, no septal abnormalities noted. Tympanic membranes are normal and external auditory canals are clear. Oropharynx with no redness, swelling, or masses, exudates, or evidence of obstruction, uvula midline. Mucous membranes moist. Neck: Trachea midline, no thyromegaly or masses palpated, and no cervical lymphadenopathy. Supple, full range of motion without nuchal rigidity, or vertebral point tenderness. No Meningismus. Cardiovascular: Regular rate and rhythm with a normal S1 and S2. No gallops, murmurs, or rubs. Normal PMI, no JVD. No pulse deficits. Abdomen/GI: Soft, non-tender, with normal bowel sounds. No distension or tympany. No guarding or rebound. No evidence of tenderness throughout. Back: No spinal tenderness. No costovertebral tenderness. Full range of motion. Skin: Cold,dry with normal turgor. Normal color with no rashes, no lesions, and no evidence of cellulitis. MS/ Extremity: Pulses equal, no cyanosis. Neurovascular intact. Full, normal range of motion. Neuro: Awake and alert, GCS 15, oriented to person, place, time, and situation. Cranial nerves II-XII grossly intact. Motor strength 5/5 in all extremities. Sensory grossly intact. Cerebellar exam normal. Normal gait. 07:41 Respiratory: moderate respiratory distress is noted, Respirations: labored breathing, tachypnea, Breath sounds: rales, that are mild, are located in both bases, rhonchi, that are mild, are heard diffusely, Respiratory rate: 60 Vital Signs: 07:00 Pulse 76; Resp 60; Temp 94(A); Pulse Ox 100% on 100% BiPAP; Weight 50 kg; Height 5 ft. sv 1 in. (154.94 cm); 07:11 BP 101 / 86; Pulse 72; Resp 60; Pulse Ox 100% on 100% BiPAP; sv 07:27 BP 164 / 58; Pulse 69; Resp 45; Temp 94.1(C); Pulse Ox 95% on 60% BiPAP; sv 07:47 Pulse 65; Resp 50; Temp 97.2(C); Pulse Ox 95% on 60% BiPAP; sv 08:23 BP 148 / 52 RA Sitting (auto/reg); Pulse 59; Resp 45; Temp 98(C); Pulse Ox 100% on 60% sv BiPAP; 07:00 Body Mass Index 20.83 (50.00 kg, 154.94 cm) sv MDM: 07:10 Patient medically screened. 8 07:37 Data reviewed: vital signs, nurses notes, lab test result(s), EKG, radiologic studies, jr8 plain films. Data interpreted: Pulse oximetry: on room air is 88 %. Interpretation: hypoxia. Counseling: I had a detailed discussion with the patient and/or guardian regarding: the historical points, exam findings, and any diagnostic results supporting the discharge/admit diagnosis, lab results, radiology results, the need for further work-up and treatment in the hospital. ED course: Dr. chowdhury and Nedra called for admission and emergent dialysis. Both accepted . 12/26 07:10 Order name: Basic Metabolic Panel; Complete Time: 14:14 12/26 07:10 Order name: BNP; Complete Time: 14:14 12/26 07:10 Order name: CBC with Diff; Complete Time: 14:14 12/26 07:10 Order name: CPK; Complete Time: 14:14 12/26 07:10 Order name: LFT's; Complete Time: 14:14 12/26 07:10 Order name: Magnesium; Complete Time: 14:14 12/26 07:10 Order name: PT-INR; Complete Time: 08:10 12/26 07:10 Order name: Ptt, Activated; Complete Time: 08:10 12/26 07:10 Order name: Troponin (emerg Dept Use Only); Complete Time: 14:14 8 12/26 07:10 Order name: Blood Culture Adult (2) jr8 12/26 07:10 Order name: Procalcitonin; Complete Time: 14:14 jr8 12/26 07:10 Order name: ABG; Complete Time: 07:35 jr8 12/26 07:35 Order name: CBC Smear Scan; Complete Time: 14:14 EDMS 12/26 07:48 Order name: Basic Metabolic Panel EDMS 12/26 07:10 Order name: XRAY Chest (1 view); Complete Time: 14:14 jr8 12/26 07:10 Order name: EKG; Complete Time: 07:11 8 12/26 07:10 Order name: BIPAP 8 12/26 07:48 Order name: 2 GM Sodium EDMS 12/26 07:48 Order name: Basic Metabolic Panel EDMS 12/26 07:48 Order name: BNP B-Type Natriuretic Peptide EDMS 12/26 07:48 Order name: BNP B-Type Natriuretic Peptide EDMS 12/26 07:48 Order name: CBC with Automated Diff EDMS 12/26 07:48 Order name: CBC with Automated Diff EDMS 12/26 07:48 Order name: Troponin I EDMS 12/26 07:48 Order name: Troponin I; Complete Time: 14:14 EDMS 12/26 07:48 Order name: Troponin I EDMS 12/26 08:46 Order name: Urine Dipstick--Ancillary (enter results) 12/26 07:10 Order name: Cardiac monitoring; Complete Time: 07:40 [facility] 12/26 07:10 Order name: EKG - Nurse/Tech; Complete Time: 07:40 8 12/26 07:10 Order name: IV Saline Lock; Complete Time: 07:40 8 12/26 07:10 Order name: Labs collected and sent; Complete Time: 07:40 8 12/26 07:10 Order name: O2 Per Protocol; Complete Time: 07:40 8 12/26 07:10 Order name: O2 Sat Monitoring; Complete Time: 07:40 8 12/26 07:10 Order name: Urine Dipstick-Ancillary (obtain specimen); Complete Time: 08:40 Administered Medications: 07:30 Drug: Lasix 60 mg Route: IVP; Site: right antecubital; sv 07:51 Follow up: Response: No adverse reaction sv 08:15 Drug: Rocephin 1 grams Route: IV; Rate: calculated rate; Site: right antecubital; sv 08:20 Follow up: Response: No adverse reaction; IV Status: Completed infusion; IV Intake: 10mlsv 08:21 Drug: Zithromax 500 mg Route: IVPB; Infused Over: 1 hrs; Site: right antecubital; sv 08:38 Follow up: Response: No adverse reaction; IV Status: Infusion continued upon admission sv Disposition: 12/26/17 07:39 Hospitalization ordered by Jovani Chowdhury for Inpatient Admission. Preliminary diagnosis are Acute systolic (congestive) heart failure, Chronic kidney disease (CKD), Elevated white blood cell count. - Bed requested for Intensive Care Unit. - Status is Inpatient Admission. ss - Condition is Fair. - Problem is new. - Symptoms have improved. UTI on Admission? No Addendum: 12/31/2017 19:06 Co-signature as Attending Physician, Silvio Abel MD. r n Signatures: Dispatcher [employer] Maria Del Carmen Charles Stephanie, Silvio Bradford RN, MD MD rn Smirch, Shelby, RN RN ss Roszak, Josh, PA PA jr8
--- NOTE | 2017-12-26 07:39 | ER ---
Nurse's Notes [facility] Name: Chen Troncoso Age: 77 yrs Sex: Female : 1940 Arrival Date: 12/26/2017 Time: 07:04 Bed 4 Private MD: Diagnosis: Acute systolic (congestive) heart failure;Chronic kidney disease (CKD);Elevated white blood cell count Presentation: 12/26 06:59 Presenting complaint: EMS states: called out for chest pain but pt was c/o dyspnea on sv arrival. Pt due for HD today. 86% RA BP 160/40. Transition of care: patient was not received from another setting of care. Onset of symptoms was December 26, 2017 at 03:00. Care prior to arrival: Glucose check: 150. 06:59 Method Of Arrival: EMS: [facility] sv 06:59 Acuity: REBEKAH 2 sv 06:59 Note Cayden RT here at bedside and pt placed immediately on BIPAP at 100%. sv Triage Assessment: 07:00 General: Appears distressed, uncomfortable, slender, Behavior is anxious, restless. sv Pain: Denies pain. EENT: No signs and/or symptoms were reported regarding the EENT system. Neuro: Level of Consciousness is awake, alert, obeys commands, Oriented to person, place, time, situation, Moves all extremities. Cardiovascular: Heart tones S1 S2 present Patient's skin is warm and dry. Dialysis shunt: in the left arm, with palpable thrill. Respiratory: Reports shortness of breath at rest on exertion Airway is patent Respiratory effort is labored, gasping, with nasal flaring, Respiratory pattern is symmetrical, tachypnea Breath sounds with rales bilaterally. Onset: The symptoms/episode began/occurred this morning, the patient has severe shortness of breath. GI: No signs and/or symptoms were reported involving the gastrointestinal system. : No signs and/or symptoms were reported regarding the genitourinary system. Derm: Skin is normal. Historical: - Allergies: 07:07 NKDA; sv - Home Meds: 07:07 amiodarone 200 mg Oral tab 1 tab once daily [Active]; Lantus 100 unit/mL Sub-Q soln 26 sv units BID [Active]; Lasix 40 mg Oral tab 1 tab 3 times per day [Active]; Norvasc 10 mg Oral tab 1 tab once daily [Active]; Novolog PenFill 100 unit/mL subcutaneous crtg 5 unit [Active]; renevela 800 mg PO TID [Active]; Vitamin D3 5,000 unit Oral tab daily [Active]; - PMHx: 07:07 Anemia; CHF; Diabetes - IDDM; Dialysis; ESRD; Hyperlipidemia; Hypertension; PVD; sv - PSHx: 07:07 ; dialysis shunt-left arm; sv - Immunization history:: Adult Immunizations up to date. - Social history:: Smoking status: Patient/guardian denies using tobacco. Screenin:45 Abuse screen: Denies threats or abuse. Denies injuries from another. Nutritional sv screening: No deficits noted. Tuberculosis screening: No symptoms or risk factors identified. Fall Risk None identified. Assessment: 07:50 Reassessment: See triage assessment. sv 08:29 Reassessment: Patient appears in no apparent distress at this time. Patient and/or sv family updated on plan of care and expected duration. Pain level reassessed. BIPAP remains at 60%. RR-40s Patient states symptoms have improved. 08:29 Cardiovascular: Patient's skin is warm and dry. Rhythm is sinus rhythm. Respiratory: sv Respiratory effort is even, labored, Respiratory pattern is tachypnea. Respiratory: Airway is patent. Vital Signs: 07:00 Pulse 76; Resp 60; Temp 94(A); Pulse Ox 100% on 100% BiPAP; Weight 50 kg; Height 5 ft. sv 1 in. (154.94 cm); 07:11 BP 101 / 86; Pulse 72; Resp 60; Pulse Ox 100% on 100% BiPAP; sv 07:27 BP 164 / 58; Pulse 69; Resp 45; Temp 94.1(C); Pulse Ox 95% on 60% BiPAP; sv 07:47 Pulse 65; Resp 50; Temp 97.2(C); Pulse Ox 95% on 60% BiPAP; sv 08:23 BP 148 / 52 RA Sitting (auto/reg); Pulse 59; Resp 45; Temp 98(C); Pulse Ox 100% on 60% sv BiPAP; 07:00 Body Mass Index 20.83 (50.00 kg, 154.94 cm) sv ED Course: 07:04 Patient arrived in ED. bd 07:05 Sue Watson RN is Primary Nurse. sv 07:05 Initial lab(s) drawn, by me, sent to lab. First set of blood cultures drawn by ED sv staff. Inserted saline lock: 20 gauge in right antecubital area, using aseptic technique. ,using aseptic technique. started by Shelby MEDELLIN Blood collected. Flushed right antecubital with 5 ml normal saline. 07:05 baggage handling supervisor on. Pulse ox on. NIBP on. Door closed. Warm blanket given. Pillow sv given. Head of bed elevated. 07:06 Triage completed. sv 07:10 Gama Bennett PA is PHCP. jr8 07:10 Silvio Abel MD is Attending Physician. jr8 07:15 Arm band placed on right wrist. sv 07:19 X-ray completed. Portable x-ray completed in exam room. Patient tolerated procedure jb2 well. 07:20 XRAY Chest (1 view) In Process Unspecified. EDMS 07:20 Rosario cath inserted, using sterile technique, 16 Fr., by me, balloon inflated, to sv gravity drainage, other Criticore returned clear yellow urine. Patient tolerated poorly. 07:27 ABG drawn. by RT staff, on oxygen. on BIPAP. sv 07:38 Jovani Friend MD is Hospitalizing Provider. jr8 07:45 Patient has correct armband on for positive identification. Placed in gown. Bed in low sv position. Call light in reach. Side rails up X2. 08:28 No provider procedures requiring assistance completed. Patient admitted, IV remains in sv place. intact. 08:38 BIPAP Sent. sv Administered Medications: 07:30 Drug: Lasix 60 mg Route: IVP; Site: right antecubital; sv 07:51 Follow up: Response: No adverse reaction sv 08:15 Drug: Rocephin 1 grams Route: IV; Rate: calculated rate; Site: right antecubital; sv 08:20 Follow up: Response: No adverse reaction; IV Status: Completed infusion; IV Intake: 10mlsv 08:21 Drug: Zithromax 500 mg Route: IVPB; Infused Over: 1 hrs; Site: right antecubital; sv 08:38 Follow up: Response: No adverse reaction; IV Status: Infusion continued upon admission sv Intake: 08:20 IV: 10ml; Total: 10ml. sv Output: 08:38 Urine: 6ml (Rosario); Total: 6ml. sv Outcome: 07:39 Decision to Hospitalize by Provider. jr8 08:28 Admitted to ICU accompanied by nurse, accompanied by tech, family with patient, via sv stretcher, room 6, with oxygen, with chart, Report called to Christen MEDELLIN 08:28 Condition: stable 08:28 Instructed on the need for admit. 08:52 Patient left the ED. ss Signatures: Dispatcher [employer] EDMS Maria Del Carmen Murdock Stephanie RN RN Corey Turner jb2 Shelby Salmon RN RN Gama Bennett PA PA jr8 Corrections: (The following items were deleted from the chart) 07:09 07:00 Pulse 76bpm; Resp 60bpm; Pulse Ox 100% 02 100% BiPAP; sv sv 07:42 07:27 ABG drawn. sv sv 07:46 07:00 Pulse 76bpm; Resp 60bpm; Pulse Ox 100% 02 100% BiPAP; 50 kg; Height 5 ft. 1 in.; sv BMI: 20.8; sv 08:29 07:00 Respiratory: Reports shortness of breath at rest on exertion Airway is patent sv Respiratory effort is labored, gasping, with nasal flaring, Respiratory pattern is symmetrical, tachypnea Onset: The symptoms/episode began/occurred this morning, the patient has severe shortness of breath sv 16:29 08:29 Reassessment: Patient appears in no apparent distress at this time. Patient sv and/or family updated on plan of care and expected duration. Pain level reassessed. Patient is alert, oriented x 3, equal unlabored respirations, skin warm/dry/pink. BIPAP remains at 60%. RR-40s Patient states symptoms have improved. sv
[2017-12-26 07:41] LABS: Protime INR 1.22
[2017-12-26] MEDS ORDERED: D50W 25 GM/50 ML SYRINGE IV PRN (07:46)
[2017-12-26] MEDS ORDERED: GLUCAGON 1 MG/VIAL IM PRN (07:46)
[2017-12-26] MEDS ORDERED: ONDANSETRON 4 MG/2 ML VIAL IV PRN (07:46)
[2017-12-26] MEDS ORDERED: FUROSEMIDE 100 MG/10 ML VIAL IV ONE (07:49)
[2017-12-26 07:58] LABS: Bicarbonate 22 mEq/L (21-31); Glucose Level 191 mg/dL (65-120); Potassium 4.7 mEq/L (3.6-5.0); Sodium Level 139 mEq/L (135-145)
[2017-12-26] MEDS ORDERED: AZITHROMYCIN 500 MG/250 ML BAG IV ONE (08:00)
[2017-12-26 08:13] LABS: AST/SGOT 42 IU/L (10-42); Albumin 3.1 g/dL (3.2-5.5); Alkaline Phosphatase 69 IU/L (42-121); BUN Blood Urea Nitrogen 26 mg/dL (6-20); Bilirubin Direct 0.2 mg/dL (0-0.2); Bilirubin Total 0.8 mg/dL (0.3-1.2); Creatine Phosphokinase 11 IU/L (22-269); Protein, Total 7.6 g/dL (6.0-8.3)
[2017-12-26 08:18] LABS: ALT/SGPT < 5 IU/L (10-60)
--- NOTE | 2017-12-26 08:28 | RAD REPORT ---
EXAM DESCRIPTION: RAD - Chest Single View - 12/26/2017 7:21 am CLINICAL HISTORY: Shortness of breath. COMPARISON: 12/21/2017 FINDINGS: Portable technique limits examination quality. Mild improvement in extensive bilateral pulmonary opacities since comparative study. The heart is upp er limit normal in size. No displaced fractures.Aortic atherosclerosis. IMPRESSION: Mild improvement lung aeration since comparative studies.
[2017-12-26] MEDS ORDERED: CEFTRIAXONE/SWI 1gm 1 GM/10 ML SYR ONE (08:30)
[2017-12-26] MEDS ORDERED: NA CHLORIDE 0.9% 1,000 ML IV PRN (08:57)
[2017-12-26] MEDS ORDERED: MANNITOL 25% 12.5 GM/50 ML VIAL IV PRN (08:57)
[2017-12-26] MEDS ORDERED: FUROSEMIDE 20 MG/ 2ML VIAL IV SCH (09:00)
[2017-12-26 09:14] LABS: Anisocytosis 1+; Blood Morphology Comment NOTED (NOT SEEN); Platelet Estimate ADEQ; Urine White Blood Cell Casts OK
[2017-12-26] MEDS: IPRATROPIUM BROM 0.5MG/2.5ML NEB PRN (09:45)
[2017-12-26] MEDS: ALBUTEROL 2.5 MG/3 ML NEB SOL NEB PRN (09:45)
[2017-12-26 09:49] LABS: Urine Blood 3+ (NEG); Urine Glucose TRACE (NEG); Urine Protein 2+ (NEG)
[2017-12-26] MEDS: ACETAMINOPHEN 500 MG TAB PO PRN (09:53)
[2017-12-26] MEDS: INSULIN -REGULAR HUMAN 50 UNIT/0.5 ML ML SQ SCH ×3 (11:30→21:00)
[2017-12-26 11:36] LABS: Arterial Blood Carboxyhemoglob 0.4 % (0-1.5); Blood Gas Oxyhemoglobin 81.8 % (94-97); Blood O2 Saturation 83.6 % (92-98.5)
[2017-12-26] MEDS ORDERED: FUROSEMIDE 100 MG in NA CHLORIDE 0.9% 90 ML IV SCH (14:00)
--- NOTE | 2017-12-26 15:22 | P.HP ---
Certification for Inpatient Patient admitted to: Inpatient With expected LOS: >2 Midnights Patient will require the following post-hospital care: None Practitioner: I am a practitioner with admitting privileges, knowledge of patient current condition, hospital course, and medical plan of care. Services: Services provided to patient in accordance with Admission requirements found in Title 42 Section 412.3 of the Code of Federal Regulations Patient History Date of Service: 12/26/17 Reason for admission: [id number] History of Present Illness: This is 77-year-old to the female with a history of hypertension diabetes and stage renal disease on hemodialysis and congestive heart failure with that the the dysfunction who presents to emergency room because of progressive short of breath in the past 3 days a social with a cough. The patient denies fever chills. The patient is not compliant with her medicines on the dialysis schedule. The patient was found to have respiratory failure hypoxia and she was admitted to hospital for emergent hemodialysis Allergies No Known Drug Allergies Allergy (Verified 11/05/17 13:40) Unknown Home Medications: Atorvastatin Calcium [Lipitor*] 40 mg PO DAILY 10/15/17 Cholecalciferol (Vitamin D3) [Vitamin D 5,000 IU Cap*] 5,000 unit PO DAILY #30 cap 10/19/17 Furosemide [Lasix] 40 mg PO BID #60 tablet 12/06/17 Docusate Sodium 100 mg PO DAILY 12/21/17 Prasugrel Hydrochloride [Effient*] 10 mg PO DAILY 12/21/17 Aspirin [Aspirin EC 325 MG] 325 mg PO DAILY 12/26/17 Metoprolol Succinate [Toprol Xl] 25 mg PO BEDTIME 12/26/17 - Past Medical/Surgical History Has patient received pneumonia vaccine in the past: Yes Diabetic: Yes -: Diabetes mellitus type 2 -: Hypertension -: Hyperlipidemia -: End-stage renal disease -: Anemia of chronic disease -: PVD -: CHF, diastolic dysfunction -: Poor compliance -: Home oxygen -: -: AV shunt placement(PATRICIA) Psychosocial/ Personal History: She is of 51 years, she has 6 children, she does not work. - Family History Mother -: Cancer Sister -: Hypertension, Diabetes Notes: type2 - Social History Smoking Status: Former smoker Alcohol use: No CD- Drugs: No Caffeine use: No Place of Residence: Home Review of Systems 10-point ROS is otherwise unremarkable Physical Examination - Vital Signs Temperature: 98 F Blood Pressure: 130/77 Pulse: 75 Respirations: 15 Pulse Ox (%): 100 - Physical Exam General: Alert, In no apparent distress HEENT: Atraumatic, PERRLA, Mucous membr. moist/pink, EOMI, Sclerae nonicteric Neck: Supple, 2+ carotid pulse no bruit, No LAD, Without JVD or thyroid abnormality Respiratory: Crackles/rales Cardiovascular: Regular rate/rhythm, Normal S1 S2 Gastrointestinal: Normal bowel sounds, No tenderness Musculoskeletal: No tenderness Integumentary: No rashes Neurological: Normal gait, Normal speech, Normal strength at 5/5 x4 extr, Normal tone, Normal affect Lymphatics: No axilla or inguinal lymphadenopathy - Studies Laboratory Data (last 24 hrs) 12/26/17 07:05: PT 14.4 H, INR 1.22, APTT 30.9 12/26/17 07:05: WBC 14.5 H D, Hgb 8.6 L, Hct 27.7 L, Plt Count 341 D 12/26/17 07:05: B-Natriuretic Peptide 5168 H 12/26/17 07:05: Sodium 139, Potassium 4.7, BUN 26 H, Creatinine 5.34 H* D, Glucose 191 H, Magnesium 2.0, Total Bilirubin 0.8, AST 42, ALT < 5 L, Alkaline Phosphatase 69 Assessment and Plan - Problems (Diagnosis) (1) Fluid overload Onset Date: 10/16/17 Current Visit: Yes Status: Acute Qualifiers: Hypervolemia type: other (2) CHF (congestive heart failure) Onset Date: 10/16/17 Current Visit: Yes Status: Acute Qualifiers: Heart failure type: diastolic Heart failure chronicity: chronic Qualified Code(s): I50.32 - Chronic diastolic (congestive) heart failure (3) Pulmonary edema Onset Date: 10/16/17 Current Visit: Yes Status: Acute Qualifiers: Chronicity: acute (4) Anemia Onset Date: 12/06/14 Current Visit: Yes Status: Chronic Qualifiers: Anemia type: due to chronic kidney disease Chronic kidney disease stage: stage 3 (moderate) Qualified Code(s): N18.3 - Chronic kidney disease, stage 3 (moderate); D63.1 - Anemia in chronic kidney disease; D63.1 - Anemia in chronic kidney disease (5) Atrial fibrillation Onset Date: 08/22/16 Current Visit: Yes Status: Chronic Qualifiers: Atrial fibrillation type: persistent Qualified Code(s): I48.1 - Persistent atrial fibrillation (6) Coronary artery disease Onset Date: 10/02/17 Current Visit: Yes Status: Chronic Qualifiers: Coronary Disease-Associated Artery/Lesion type: [place] artery [place] vs. transplanted heart: [place] heart Associated angina: without angina Qualified Code(s): I25.10 - Atherosclerotic heart disease of [place] coronary artery without angina pectoris (7) Diabetes mellitus Onset Date: 10/02/17 Current Visit: Yes Status: Chronic Qualifiers: Diabetes mellitus type: type 2 Diabetes mellitus detention insulin use: with detention use Diabetes mellitus complication status: with kidney complications Diabetes mellitus complication detail: with chronic kidney disease Chronic kidney disease stage: on chronic dialysis Qualified Code(s) : E11.22 - Type 2 diabetes mellitus with diabetic chronic kidney disease; N18.6 - End stage renal disease; N18.6 - End stage renal disease; N18.6 - End stage renal disease; N18.6 - End stage renal disease; Z79.4 - terminal operations manager (current) use of insulin; Z79.4 - terminal operations manager (current) use of insulin; Z79.4 - snf ( current) use of insulin; Z79.4 - terminal operations manager (current) use of insulin; Z99.2 - Dependence on renal dialysis; Z99.2 - Dependence on renal dialysis; Z99.2 - Dependence on renal dialysis; Z99.2 - Dependence on renal dialysis (8) End stage renal disease Onset Date: 10/02/17 Current Visit: Yes Status: Chronic (9) Gastrointestinal bleed Onset Date: 12/20/16 Current Visit: Yes Status: Resolved (10) Hyperlipidemia Onset Date: 10/02/17 Current Visit: Yes Status: Chronic Qualifiers: Hyperlipidemia type: unspecified Qualified Code(s): E78.5 - Hyperlipidemia , unspecified (11) Hypertension Onset Date: 10/02/17 Current Visit: Yes Status: Chronic Qualifiers: Hypertension type: essential hypertension (12) Hypothyroidism Current Visit: Yes Status: Chronic Qualifiers: Hypothyroidism type: acquired Qualified Code(s): E03.9 - Hypothyroidism, unspecified - Plan --admitted patient to ICU --BiPAP --start patient on intravenous Lasix while waiting for hemodialysis --consult Nephrology for restarting hemodialysis --home medicine reconciled - Advance Directives Does patient have a Living Will: No Does patient have a Durable POA for Healthcare: No
[2017-12-26] MEDS: EPOETIN ALFA 10,000 UNIT/ML VIAL IV SCH (20:22)
[2017-12-26] MEDS: METOPROLOL XL 25 MG TAB PO SCH (21:33)
[2017-12-26] MEDS ORDERED: LORazepam 2 MG/ML VIAL IV ONE (21:44)
[2017-12-26] MEDS ORDERED: LORazepam 2 MG/ML VIAL IV PRN (21:45)
[2017-12-26] MEDS ORDERED: LORazepam 2 MG/ML VIAL ONE (22:07)
[2017-12-27] MEDS: ACETAMINOPHEN 500 MG TAB PO PRN (01:32)
[2017-12-27 05:44] LABS: Absolute Lymphocytes (CBC) 1.5 K/uL (0.7-4.9); Absolute Neutrophil 12.6 K/uL (1.8-8.0); Basophils % 0.7 % (0-1.3); Eosinophils % 0.6 % (0-4.4); Hematocrit 26.3 % (36.0-45.0); MCH 29.6 pg (27.0-35.0); MCV 90.9 fL (80-100); Monocytes % 6.3 % (3.3-12.3)
[2017-12-27 06:05] LABS: Potassium 3.8 mEq/L (3.6-5.0)
[2017-12-27] MEDS: INSULIN -REGULAR HUMAN 50 UNIT/0.5 ML ML SQ SCH ×4 (07:30→21:16)
[2017-12-27] MEDS: DOCUSATE NA 100 MG CAP PO SCH (09:00)
[2017-12-27] MEDS ORDERED: HOME MED 1 EA UNK (Aspirin [Aspirin Ec 325 Mg] 325 MG) PO SCH (09:00)
[2017-12-27] MEDS: VITAMIN D 5,000 UNIT CAP PO SCH (09:17)
[2017-12-27] MEDS: ASPIRIN EC 325 MG TABLET PO SCH (09:18)
[2017-12-27] MEDS: PRASUGREL (EFFIENT) 10 MG TAB PO SCH (09:18)
--- NOTE | 2017-12-27 09:48 | P.PN ---
Subjective Date of Service: 12/27/17 Chief Complaint: [id number] getting better after HD, but still needs excessive O2. On home O2. Physical Examination - Vital Signs Temperature: 96.5 F Blood Pressure: 153/50 Pulse: 64 Respirations: 20 Pulse Ox (%): 100 - Physical Exam General: Alert, In no apparent distress HEENT: Atraumatic, PERRLA, EOMI Neck: Supple, JVD not distended Respiratory: Normal air movement, Crackles/rales Cardiovascular: Regular rate/rhythm, Normal S1 S2 Gastrointestinal: Normal bowel sounds, No tenderness Musculoskeletal: No tenderness Integumentary: No rashes Neurological: Normal speech, Normal tone, Normal affect Lymphatics: No axilla or inguinal lymphadenopathy - Studies Medications List Reviewed: Yes Assessment And Plan - Current Problems (Diagnosis) (1) Fluid overload Onset Date: 10/16/17 Current Visit: Yes Status: Acute Qualifiers: Hypervolemia type: other (2) CHF (congestive heart failure) Onset Date: 10/16/17 Current Visit: Yes Status: Acute Qualifiers: Heart failure type: diastolic Heart failure chronicity: acute on chronic Qualified Code(s): I50.33 - Acute on chronic diastolic (congestive) heart failure (3) Pulmonary edema Onset Date: 10/16/17 Current Visit: Yes Status: Acute Qualifiers: Chronicity: acute (4) Anemia Onset Date: 12/06/14 Current Visit: Yes Status: Chronic Qualifiers: Anemia type: due to chronic kidney disease Chronic kidney disease stage: stage 3 (moderate) Qualified Code(s): N18.3 - Chronic kidney disease, stage 3 (moderate); D63.1 - Anemia in chronic kidney disease; D63.1 - Anemia in chronic kidney disease (5) Atrial fibrillation Onset Date: 08/22/16 Current Visit: Yes Status: Chronic Qualifiers: Atrial fibrillation type: persistent Qualified Code(s): I48.1 - Persistent atrial fibrillation (6) Coronary artery disease Onset Date: 10/02/17 Current Visit: Yes Status: Chronic Qualifiers: Coronary Disease-Associated Artery/Lesion type: [place] artery [place] vs. transplanted heart: [place] heart Associated angina: without angina Qualified Code(s): I25.10 - Atherosclerotic heart disease of [place] coronary artery without angina pectoris (7) Diabetes mellitus Onset Date: 10/02/17 Current Visit: Yes Status: Chronic Qualifiers: Diabetes mellitus type: type 2 Diabetes mellitus [place] insulin use: with skilled nursing use Diabetes mellitus complication status: with kidney complications Diabetes mellitus complication detail: with chronic kidney disease Chronic kidney disease stage: on chronic dialysis Qualified Code(s) : E11.22 - Type 2 diabetes mellitus with diabetic chronic kidney disease; N18.6 - End stage renal disease; Z99.2 - Dependence on renal dialysis; Z99.2 - Dependence on renal dialysis; Z99.2 - Dependence on renal dialysis; N18.6 - End stage renal disease; N18.6 - End stage renal disease; N18.6 - End stage renal disease; Z79.4 - FDC (current) use of insulin; Z79.4 - FDC (current ) use of insulin; Z79.4 - FDC (current) use of insulin; Z79.4 - ferry terminal agent (current) use of insulin; Z99.2 - Dependence on renal dialysis (8) End stage renal disease Onset Date: 10/02/17 Current Visit: Yes Status: Chronic (9) Gastrointestinal bleed Onset Date: 12/20/16 Current Visit: Yes Status: Chronic Qualifiers: GI bleed type/associated pathology: unspecified gastrointestinal hemorrhage type Qualified Code(s): K92.2 - Gastrointestinal hemorrhage, unspecified (10) Hyperlipidemia Onset Date: 10/02/17 Current Visit: Yes Status: Chronic Qualifiers: Hyperlipidemia type: unspecified Qualified Code(s): E78.5 - Hyperlipidemia , unspecified (11) Hypertension Onset Date: 10/02/17 Current Visit: Yes Status: Chronic Qualifiers: Hypertension type: essential hypertension (12) Hypothyroidism Current Visit: Yes Status: Chronic Qualifiers: Hypothyroidism type: acquired Qualified Code(s): E03.9 - Hypothyroidism, unspecified (13) COPD (chronic obstructive pulmonary disease) Current Visit: Yes Status: Acute - Plan --BiPAP --DC Lasix, no urine output --Add Solu Medrol; On Nebs; On Zithromax --Repeat CT chest --Cons Pulmonology --Xanax --consult Nephrology for restarting hemodialysis
--- NOTE | 2017-12-27 11:04 | RAD REPORT ---
EXAM DESCRIPTION: CT - Thor[place] Wo Con - 12/27/2017 10:26 am CLINICAL HISTORY: Chest pain, shortness of breath, decreasing O2 saturation COMPARISON: Chest exam December 26, CT chest December 04 TECHNIQUE: Axial 5 mm thick images of the chest were obtained without IV contrast. All CT scans are performed using dose optimization technique as appropriate and may include automated exposure control or mA/KV adjustment according to patient size. FINDINGS: Extensive interstitial and alveolar or opacities are present throughout the lung smith wi th some relative sparing of each apex. These changes are superimposed on a baseline of extensive inte rstitial fibrotic lung disease. Minimal bilateral pleural effusions are present. No pleural based mas s or pneumothorax. No suspicious mass of the lung parenchyma. Numerous small reactive type mediastinal lymph nodes are present. No new or progressive mediastinal o r hilar mass. Vascular assessment is limited in the absence of contrast. Mild cardiomegaly is present , stable with no pericardial effusion. No chest wall mass or abnormal axillary lymphadenopathy. IMPRESSION: Very extensive interstitial and alveolar opacities present with relative sparing of each apex. Lung pattern is superimposed on the baseline interstitial fibrotic pattern. Multiple prior studies have shown varying degrees alveolar opacification. Pattern is more pronounced than seen December 04. This is probably worsening pulmonary edema no bilateral pneumonia is a possibil ity.
--- NOTE | 2017-12-27 11:46 | P.CNS ---
Date of Consult: 12/27/17 Chief Complaint: Respiratory failure History of Present Illness: Patient is 77 years of age with a history of chronic renal failure admitted with progressive dyspnea was hypoxic on admission patient was dialyzed currently in respiratory failure requiring BiPAP significant desat off the BiPAP chest x-ray shows diffuse ground-glass appearance these as is changes on his last admission no evidence of sepsis [place]-speaking only Allergies No Known Drug Allergies Allergy (Verified 11/05/17 13:40) Unknown Home Medications: Atorvastatin Calcium [Lipitor*] 40 mg PO DAILY 10/15/17 Cholecalciferol (Vitamin D3) [Vitamin D 5,000 IU Cap*] 5,000 unit PO DAILY #30 cap 10/19/17 Furosemide [Lasix] 40 mg PO BID #60 tablet 12/06/17 Docusate Sodium 100 mg PO DAILY 12/21/17 Prasugrel Hydrochloride [Effient*] 10 mg PO DAILY 12/21/17 Aspirin [Aspirin EC 325 MG] 325 mg PO DAILY 12/26/17 Metoprolol Succinate [Toprol Xl] 25 mg PO BEDTIME 12/26/17 - Past Medical/Surgical History Diabetic: Yes -: Diabetes mellitus type 2 -: Hypertension -: Hyperlipidemia -: End-stage renal disease -: Anemia of chronic disease -: PVD -: CHF, diastolic dysfunction -: Poor compliance -: Home oxygen -: -: AV shunt placement(PATRICIA) Psychosocial/ Personal History: She is of 51 years, she has 6 children, she does not work. - Family History Mother Medical History: Cancer Sister Medical History: Hypertension, Diabetes Notes: type2 - Social History Smoking Status: Unknown if ever smoked Alcohol use: No CD- Drugs: No Caffeine use: No Place of Residence: Home Review of Systems is unable to be obtained Physical Examination Temp Pulse Resp BP Pulse Ox 96.5 F L 64 20 153/50 H 100 12/27/17 09:48 12/27/17 09:48 12/27/17 09:48 12/27/17 09:48 12/27/17 09:48 General: Alert, Cooperative Respiratory: Crackles/rales (Bilateral) Cardiovascular: No edema, Normal S1 S2 Gastrointestinal: Normal bowel sounds, Non-distended - Problems (1) ARDS (adult respiratory distress syndrome) Current Visit: Yes Status: Acute Plan: Patient is 77 years of age admitted with shortness of breath hypoxemia respiratory failure currently on BiPAP appears to have ARDS with diffuse bilateral ground-glass changes doubt sepsis labs reviewed white count is mildly elevated cultures are all negative increase the EPAP to 10 titrate sat to 90% do ABGs trial of steroids change to levofloxacin
[2017-12-27] MEDS ORDERED: Levofloxacin500mg IV 500 MG/100 ML BAG IV ONE (12:00)
[2017-12-27] MEDS ORDERED: METHYLPREDNISOLONE 40 MG INJ IV SCH (12:00)
[2017-12-27] MEDS: ALPRAZOLAM 0.5 MG TABLET PO SCH ×2 (13:52→21:15)
[2017-12-27 15:57] LABS: Arterial Blood Carboxyhemoglob 1.7 % (0-1.5); Blood Gas Oxyhemoglobin 85.9 % (94-97); Blood O2 Saturation 89.2 % (92-98.5)
[2017-12-27] MEDS: METHYLPREDNISOLONE 40 MG INJ IV SCH (16:17)
--- NOTE | 2017-12-27 20:19 | P.CNS ---
Date of Consult: 12/26/17 Reason for Consult: ESRD Requesting Physician: Jovani Friend Chief Complaint: Respiratory failure History of Present Illness: This is 77-year-old to the female with a history of hypertension diabetes and stage renal disease on hemodialysis and congestive heart failure with that the the dysfunction who presents to emergency room because of progressive short of breath in the past 3 days a social with a cough. The patient denies fever chills. The patient is not compliant with her medicines on the dialysis schedule. The patient was found to have respiratory failure hypoxia and she was admitted to hospital for emergent hemodialysis 07:41 This 77 yrs old Female presents to ER via EMS with complaints of Shortness Of jr8 Breath. 07:41 The patient has shortness of breath at rest. Onset: The symptoms/episode began/occurred jr8 acutely, today. Duration: The symptoms are continuous. The patient's shortness of breath is aggravated by supine position, talking. Associated signs and symptoms: The patient has no apparent associated signs or symptoms. Severity of symptoms : At their worst the symptoms were moderate in the emergency department the symptoms are unchanged. It is unknown whether or not the patient has had similar symptoms in the past. The patient has not recently seen a physician. 07:41 EMS was called out for respiratory distress. History of CHF and CKD. Suppose to be jr8 dialized today but could not make it due to shortness of breath . Allergies No Known Drug Allergies Allergy (Verified 11/05/17 13:40) Unknown Home medications list reviewed: Yes Home Medications: Atorvastatin Calcium [Lipitor*] 40 mg PO DAILY 10/15/17 Cholecalciferol (Vitamin D3) [Vitamin D 5,000 IU Cap*] 5,000 unit PO DAILY #30 cap 10/19/17 Furosemide [Lasix] 40 mg PO BID #60 tablet 12/06/17 Docusate Sodium 100 mg PO DAILY 12/21/17 Prasugrel Hydrochloride [Effient*] 10 mg PO DAILY 12/21/17 Aspirin [Aspirin EC 325 MG] 325 mg PO DAILY 12/26/17 Metoprolol Succinate [Toprol Xl] 25 mg PO BEDTIME 12/26/17 - Past Medical/Surgical History Diabetic: Yes -: Diabetes mellitus type 2 -: Hypertension -: Hyperlipidemia -: End-stage renal disease -: Anemia of chronic disease -: PVD -: CHF, diastolic dysfunction -: Poor compliance -: Home oxygen -: -: AV shunt placement(PATRICIA) Psychosocial/ Personal History: She is of 51 years, she has 6 children, she does not work. - Family History Mother Medical History: Cancer Sister Medical History: Hypertension, Diabetes Notes: type2 - Social History Smoking Status: Unknown if ever smoked Alcohol use: No CD- Drugs: No Caffeine use: No Place of Residence: Home Review of Systems 10-point ROS is otherwise unremarkable General: Weakness, Malaise Respiratory: Shortness of Breath Neurological: Weakness Physical Examination Temp Pulse Resp BP Pulse Ox 97.4 F 70 44 H 147/45 H 99 12/27/17 16:00 12/27/17 19:00 12/27/17 19:00 12/27/17 19:00 12/27/17 19:00 General: Oriented x3, Cooperative HEENT: Mucous membr. moist/pink Neck: Supple Respiratory: Diminished Cardiovascular: No edema, Regular rate/rhythm, No rubs Gastrointestinal: Soft and benign, Non-distended Musculoskeletal: No clubbing, No contractures Integumentary: No rashes, No cyanosis Neurological: Normal speech Blood work reviewed in the chart. Initial blood work: Hgb 8.6 Imagings Data: EXAM DESCRIPTION: RAD - Chest Single View - 12/26/2017 7:21 am CLINICAL HISTORY: Shortness of breath. COMPARISON: 12/21/2017 FINDINGS: Portable technique limits examination quality. Mild improvement in extensive bilateral pulmonary opacities since comparative study. The heart is upper limit normal in size. No displaced fractures.Aortic atherosclerosis. IMPRESSION: Mild improvement lung aeration since comparative studies. Conclusions/Impression: A/ A/C Diastolic CHF. Acute respiratory failure/ hypoxia. ESRD on HD. HTN with CKD. Anemia in CKD. DM II with CKD. YONAS/ Secondary HyperPTH. P/ Continue current POC and Medications. Seen and examined in the ER; agree with transfer to the ICU. Continue Bipap for ARF. Arrange for acute HD with UF. Pulmonary consult. Restart home medications as indicated. Give Epo. AM labs. Daily weight. Thank you kindly for the consultation. Case discussed with ER physician. Critical Care: Yes (Greater than 30min)
--- NOTE | 2017-12-27 20:51 | P.PN ---
Date of Service: 12/27/17 Vital Signs Temp Pulse Resp BP Pulse Ox 97.4 F 70 44 H 147/45 H 99 12/27/17 16:00 12/27/17 19:00 12/27/17 19:00 12/27/17 19:00 12/27/17 19:00 Medications Acetaminophen (Tylenol -Extra Strength) 500 mg PO Q6H PRN PRN Reason: [id number] Stop: 01/25/18 07:47 Last Admin: 12/27/17 01:32 Dose: 500 mg Albuterol Sulfate (Proventil 0.083% Neb Soln) 2.5 mg NEB Q4H PRN PRN Reason: WHEEZING Stop: 01/25/18 07:47 Last Admin: 12/26/17 09:45 Dose: 2.5 mg Alprazolam (Xanax) 0.5 mg PO TID LILIA Stop: 01/26/18 14:01 Last Admin: 12/27/17 13:52 Dose: 0.5 mg Aspirin (Ecotrin) 325 mg PO DAILY LILIA Stop: 01/26/18 09:01 Last Admin: 12/27/17 09:18 Dose: 325 mg Cholecalciferol (Vitamin D 5,000 Iu Cap) 5,000 unit PO DAILY LILIA Stop: 01/26/18 09:01 Last Admin: 12/27/17 09:17 Dose: 5,000 unit Dextrose (Dextrose 50% Syringe) 12.5 gm IV PRN PRN PRN Reason: HYPOGLYCEMIA Stop: 01/25/18 07:47 Docusate Sodium (Colace Cap) 100 mg PO DAILY LILIA Stop: 01/26/18 09:01 Last Admin: 12/27/17 09:00 Dose: Not Given Epoetin [place] (Procrit) 10,000 unit IV EVERY HD LILIA Stop: 01/25/18 09:01 Last Admin: 12/26/17 20:22 Dose: 10,000 unit Glucagon (Glucagen) 1 mg IM 1X PRN PRN Reason: HYPOGLYCEMIA Stop: 01/25/18 07:47 Heparin Sodium (Porcine) (Heparin 1,000 Units/Ml) 6,000 unit IV EVERY HD PRN PRN Reason: FLUSH AFTER EACH USE Stop: 01/25/18 08:58 Albumin Human (Albumin 25%) 50 mls @ 100 mls/hr IV EVERY HD LILIA Stop: 01/25/18 09:01 Levofloxacin/Dextrose (Levaquin 250mg/50 Ml Ivpb) 250 mg in 50 mls @ 50 mls/hr IV Q48H LILIA Stop: 01/28/18 09:01 Insulin Human Regular (Novolin -R) 0 unit SQ ACHS LILIA PRN Reason: Protocol Stop: 01/25/18 11:31 Last Admin: 12/27/17 16:16 Dose: Not Given Ipratropium [place] (Atrovent Neb) 0.5 mg NEB Q4H PRN PRN Reason: WHEEZING Stop: 01/25/18 07:47 Last Admin: 12/26/17 09:45 Dose: 0.5 mg Mannitol (Mannitol 12.5 Gm/50 Ml Vial) 12.5 gm IV EVERY HD PRN PRN Reason: BP support at hemodialysis Stop: 01/25/18 08:58 Methylprednisolone Sodium Succinate (Solu-Medrol) 40 mg IV Q8HR LILIA Stop: 01/26/18 17:01 Last Admin: 12/27/17 16:17 Dose: 40 mg Metoprolol Succinate (Toprol Xl) 25 mg PO BEDTIME LILIA Stop: 01/25/18 21:01 Last Admin: 12/26/17 21:33 Dose: 25 mg Ondansetron HCl (Zofran) 4 mg IV Q4H PRN PRN Reason: NAUSEA / VOMITING Prasugrel (Effient) 10 mg PO DAILY LILIA Stop: 01/26/18 09:01 Last Admin: 12/27/17 09:18 Dose: 10 mg Sodium Chloride (Normal Saline Flush) 10 ml IV BID LILIA Stop: 01/25/18 09:01 Last Admin: 12/27/17 08:59 Dose: 10 ml Microbiology Results 12/26/17 07:05 Blood - Other Aerobic Blood Culture - Preliminary No growth in 24 hours. 12/26/17 07:05 Blood - Other Anaerobic Blood Culture - Preliminary No growth in 24 hours. 12/26/17 07:05 Blood - Other Aerobic Blood Culture - Preliminary No growth in 24 hours. 12/26/17 07:05 Blood - Other Anaerobic Blood Culture - Preliminary No growth in 24 hours. Assessment/ Plan: Nephrology/ ICU CPS stable without CP. +SOB with hypoxia on intermittent Bipap. No acute events overnight. Diagnosed with ARDS. Vitals, medications, blood work and imaging reviewed in the chart. General: Oriented x3, Cooperative HEENT: Mucous membr. moist/pink Neck: Supple Respiratory: Diminished Cardiovascular: No edema, Regular rate/rhythm, No rubs Gastrointestinal: Soft and benign, Non-distended Musculoskeletal: No clubbing, No contractures Integumentary: No rashes, No cyanosis Neurological: Normal speech Blood work reviewed in the chart. Initial blood work: Hgb 8.6 Greater 30min pt care. Imagings Data: EXAM DESCRIPTION: RAD - Chest Single View - 12/26/2017 7:21 am CLINICAL HISTORY: Shortness of breath. COMPARISON: 12/21/2017 FINDINGS: Portable technique limits examination quality. Mild improvement in extensive bilateral pulmonary opacities since comparative study. The heart is upper limit normal in size. No displaced fractures.Aortic atherosclerosis. IMPRESSION: Mild improvement lung aeration since comparative studies. Conclusions/Impression: A/ A/C Diastolic CHF. Acute respiratory failure/ hypoxia. ESRD on HD. HTN with CKD. Anemia in CKD. DM II with CKD. YONAS/ Secondary HyperPTH. P/ Continue current POC and Medications. Continue Bipap for ARF. Next HD tomorrow. Appreciate pulmonary input. Agree with steroids. AM labs. Daily weight.
[2017-12-27] MEDS: METOPROLOL XL 25 MG TAB PO SCH (21:15)
[2017-12-28] MEDS: METHYLPREDNISOLONE 40 MG INJ IV SCH ×3 (00:09→16:23)
[2017-12-28 05:15] LABS: Absolute Lymphocytes (CBC) 0.7 K/uL (0.7-4.9); Absolute Monocytes 0.1 K/uL (0.1-1.3); Absolute Neutrophil 9.5 K/uL (1.8-8.0); Basophils % 0.2 % (0-1.3); Hematocrit 26.9 % (36.0-45.0); Lymphocytes % 6.4 % (15.3-44.8); MCH 30.5 pg (27.0-35.0); MCV 92.1 fL (80-100); MPV 7.9 fL (7.6-11.3); RBC Red Blood Cell Count 2.91 M/uL (3.86-4.86)
[2017-12-28 06:00] LABS: Phosphorus 4.3 mg/dL (2.5-4.3); Potassium 4.2 mEq/L (3.6-5.0)
[2017-12-28] MEDS: INSULIN -REGULAR HUMAN 50 UNIT/0.5 ML ML SQ SCH ×4 (08:28→20:51)
[2017-12-28] MEDS: DOCUSATE NA 100 MG CAP PO SCH (09:04)
[2017-12-28] MEDS: ASPIRIN EC 325 MG TABLET PO SCH (09:04)
[2017-12-28] MEDS: ALPRAZOLAM 0.5 MG TABLET PO SCH ×3 (09:04→20:51)
[2017-12-28] MEDS: VITAMIN D 5,000 UNIT CAP PO SCH (09:04)
[2017-12-28] MEDS: PRASUGREL (EFFIENT) 10 MG TAB PO SCH (09:05)
--- NOTE | 2017-12-28 11:57 | P.PN ---
Subjective Date of Service: 12/28/17 Chief Complaint: Respiratory failure condition guarded. bp was lower, required albumin on dialysis. judicious uf, but due to lower bp had to cut back...currently on track for about 1.2 litres net. close monitoring of bp...discussed, with lean sensei...patient seen/ examined on dialysis. please also see dialysis flow sheets. Physical Examination - Vital Signs Temperature: 97.0 F Blood Pressure: 131/38 Pulse: 56 Respirations: 17 Pulse Ox (%): 100 - Studies Medications List Reviewed: Yes
[2017-12-28] MEDS: ALBUMIN HUMAN 25% 50 ML IV SCH (12:17)
--- NOTE | 2017-12-28 13:08 | P.PN ---
Subjective Date of Service: 12/28/17 Chief Complaint: Respiratory failure Subjective: Improving (Patient's condition is improving she is still tachypneic worse then her Xanax wears off she is covered on 40% oxygen still requiring BiPAP) Review of Systems is unable to be obtained Physical Examination - Vital Signs Temperature: 97.0 F Blood Pressure: 131/38 Pulse: 56 Respirations: 17 Pulse Ox (%): 100 - Physical Exam General: Moderate distress Respiratory: Clear to auscultation bilaterally, Diminished Cardiovascular: No edema, Regular rate/rhythm, Normal S1 S2 - Studies Medications List Reviewed: Yes Assessment & Plan - Problems (Diagnosis) (1) ARDS (adult respiratory distress syndrome) Current Visit: Yes Status: Acute Plan: Patient has ARDS diffuse bilateral ground-glass changes white count is normal patient is on dialysis continue with levofloxacin vital signs are stable day in negative fluid balance continue with BiPAP consider L tach patient is not stable for bronchoscopy cultures are so far negative continue with steroids until over the weekend white count is now normal
--- NOTE | 2017-12-28 13:31 | PN ---
Subjective: Currently, the patient is sleepy on the BiPAP. She is getting hemodialysis. She receiv ed Xanax, so review of systems unobtainable. Physical Examination: Vital Signs: Currently vital signs, blood pressure is 149/59, respiratory rate 18, pulse of 53, temp erature 97. General: She is up to date on the BiPAP. Does not look in any distress. HEENT: Atraumatic, normocephalic. Oral mucosa is dry. Neck: Supple. No JVD. Chest: Decreased breath sounds at the bases. Heart: Regular rate and rhythm. No gallops. Abdomen: Soft, nontender. No masses. No hepatosplenomegaly. Positive bowel sounds. Extremities: No clubbing, cyanosis, or edema. No calf tenderness. Neurologic: Not assessed as the patient is a little bit obtunded after she received Xanax. Laboratory Data: Today showed CBC with hemoglobin at 8.9, white blood cells 10.3, platelet of 251. ABG was pH of 7.37, O2 of 69, bicarb 21, O2 saturation of 90. Chemistry was sodium 136, potassium 4. 2, BUN of 30, creatinine of 4.58, glucose 227. Assessment And Plan: 1.Acute hypoxemic respiratory failure ? acute respiratory distress syndrome. At this point, we will continue the patient on BiPAP. She is being followed by Dr. Mccoy. We appreciate his input. Co ntinue IV antibiotic with Levaquin every other day. She is on nebulizer with albuterol. 2.Sepsis, better. She is on antibiotic. Blood cultures all pending. 3.End-stage renal disease, on hemodialysis. Appreciate renal input. Continue hemodialysis. Today, 2 L will be removed. She is on Procrit with every hemodialysis. 4.Deep venous thrombosis prophylaxis. We will start her on Lovenox. MT/MODL Voice ID: [id number] Report ID: [id number]
[2017-12-28] MEDS: METOPROLOL XL 25 MG TAB PO SCH (20:50)
[2017-12-29] MEDS: METHYLPREDNISOLONE 40 MG INJ IV SCH ×3 (00:10→17:31)
[2017-12-29] MEDS: ALBUTEROL 2.5 MG/3 ML NEB SOL NEB PRN ×3 (04:00→21:28)
[2017-12-29] MEDS: IPRATROPIUM BROM 0.5MG/2.5ML NEB PRN ×3 (04:00→21:28)
[2017-12-29] MEDS: DOCUSATE NA 100 MG CAP PO SCH (08:17)
[2017-12-29] MEDS: ASPIRIN EC 325 MG TABLET PO SCH (08:17)
[2017-12-29] MEDS: INSULIN -REGULAR HUMAN 50 UNIT/0.5 ML ML SQ SCH ×4 (08:17→21:00)
[2017-12-29] MEDS: PRASUGREL (EFFIENT) 10 MG TAB PO SCH (08:17)
[2017-12-29] MEDS: VITAMIN D 5,000 UNIT CAP PO SCH (08:18)
[2017-12-29] MEDS: ALPRAZOLAM 0.5 MG TABLET PO SCH ×4 (08:19→22:24)
[2017-12-29] MEDS ORDERED: Levofloxacin 250mg IV 250 MG/50 ML BAG IV SCH (09:00)
[2017-12-29 12:29] LABS: Albumin 2.9 g/dL (3.2-5.5); Bilirubin Total 0.5 mg/dL (0.3-1.2); Potassium 4.5 mEq/L (3.6-5.0); Protein, Total 7.2 g/dL (6.0-8.3)
--- NOTE | 2017-12-29 13:04 | EKG ---
Test Date: 2017-12-26 Test Time: 07:11:35 [employer] Operator: LORI MEASUREMENT RESULTS: Intervals: Rate: 72 CA: 142 QRSD: 130 QT: 464 QTc: 508 [place]: P: 55 CA: 142 QRS: 39 T: 10 INTERPRETIVE STATEMENTS: Normal sinus rhythm Right bundle branch block Abnormal ECG Compared to ECG 12/21/2017 09:59:38 No significant changes Electronically Signed On 12-29-17 13:04:04 CDT by Sameer Newsome
[2017-12-29] MEDS ORDERED: INSULIN -REGULAR HUMAN 50 UNIT/0.5 ML ML IV ONE (17:58)
[2017-12-29] MEDS ORDERED: INSULIN 70/30 100 UNITS/ML SQ ONE ×2 (21:33→22:10)
[2017-12-29] MEDS: METOPROLOL XL 25 MG TAB PO SCH (21:56)
[2017-12-30] MEDS: METHYLPREDNISOLONE 40 MG INJ IV SCH ×2 (00:04→08:19)
[2017-12-30] MEDS: ALBUTEROL 2.5 MG/3 ML NEB SOL NEB PRN (04:22)
[2017-12-30] MEDS: IPRATROPIUM BROM 0.5MG/2.5ML NEB PRN (04:22)
[2017-12-30 04:58] LABS: Absolute Lymphocytes (CBC) 0.5 K/uL (0.7-4.9); Absolute Monocytes 0.4 K/uL (0.1-1.3); Absolute Neutrophil 16.3 K/uL (1.8-8.0); Basophils % 0.3 % (0-1.3); Hematocrit 30.4 % (36.0-45.0); Lymphocytes % 2.7 % (15.3-44.8); MCH 29.4 pg (27.0-35.0); MCV 93.7 fL (80-100); MPV 8.1 fL (7.6-11.3); Monocytes % 2.4 % (3.3-12.3); RBC Red Blood Cell Count 3.25 M/uL (3.86-4.86)
[2017-12-30 05:20] LABS: Bilirubin Total 0.6 mg/dL (0.3-1.2); Potassium 4.5 mEq/L (3.6-5.0)
[2017-12-30 06:07] LABS: Anisocytosis 1+; Blood Morphology Comment NOTED (NOT SEEN); Macrocytosis 2+; Platelet Estimate ADEQ
[2017-12-30] MEDS: INSULIN -REGULAR HUMAN 50 UNIT/0.5 ML ML SQ SCH ×4 (07:49→21:32)
[2017-12-30] MEDS: ALPRAZOLAM 0.5 MG TABLET PO SCH ×3 (08:19→22:28)
[2017-12-30] MEDS: PRASUGREL (EFFIENT) 10 MG TAB PO SCH (08:19)
[2017-12-30] MEDS: DOCUSATE NA 100 MG CAP PO SCH (08:19)
[2017-12-30] MEDS: VITAMIN D 5,000 UNIT CAP PO SCH (08:19)
[2017-12-30] MEDS: ASPIRIN EC 325 MG TABLET PO SCH (08:19)
--- NOTE | 2017-12-30 11:24 | P.PN ---
Subjective Date of Service: 12/30/17 Primary Care Provider: Dr. Galvan Chief Complaint: Respiratory failure Subjective: Other (Patient doing better. Patient off BiPAP.) Physical Examination - Vital Signs Temperature: 97.4 F Blood Pressure: 154/43 Pulse: 63 Respirations: 26 Pulse Ox (%): 97 - Physical Exam General: Alert, In no apparent distress, Cooperative HEENT: Atraumatic Neck: Supple Respiratory: Crackles/rales (Bilateral), Expiratory wheezes (Bilateral) Cardiovascular: Normal pulses, Regular rate/rhythm Gastrointestinal: Normal bowel sounds, Soft and benign, Non-distended, No masses , No rebound, No guarding Musculoskeletal: No erythema, No tenderness, No warmth Integumentary: No tenderness/swelling, No erythema, No warmth, No cyanosis Neurological: Normal speech, Normal strength at 5/5 x4 extr, Normal tone, Normal affect Lymphatics: No axilla or inguinal lymphadenopathy - Studies Medications List Reviewed: Yes Assessment & Plan - Problems (Diagnosis) (1) ARDS (adult respiratory distress syndrome) Current Visit: Yes Status: Acute Plan: Patient off BiPAP. Patient appears improved with diuresis and dialysis. Will restart her Lasix. Will continue with a 1500 cc per day fluid restriction. Patient gets dialysis on Tuesdays, and Saturdays. Will transfer the patient to the floor. Will have physical therapy assess ambulation. Patient uses home oxygen. Anticipate discharge within the next 1-2 days if significantly improved. (2) CHF (congestive heart failure) Onset Date: 10/16/17 Current Visit: Yes Status: Acute Plan: Will continue with diuresis and dialysis. Qualifiers: Heart failure type: diastolic Heart failure chronicity: acute on chronic Qualified Code(s): I50.33 - Acute on chronic diastolic (congestive) heart failure (3) COPD (chronic obstructive pulmonary disease) Current Visit: Yes Status: Chronic Plan: Patient with underlying COPD. Will provide medication. Patient uses home oxygen. Qualifiers: COPD type: chronic bronchitis Chronic bronchitis type: unspecified Qualified Code(s): J42 - Unspecified chronic bronchitis (4) Pulmonary edema Onset Date: 10/16/17 Current Visit: Yes Status: Acute Plan: Continue with above plan of care. Qualifiers: Chronicity: acute (5) Anemia Onset Date: 12/06/14 Current Visit: Yes Status: Chronic Plan: This is a chronic disease. Will monitor closely. Qualifiers: Anemia type: due to chronic kidney disease Chronic kidney disease stage: on chronic dialysis Qualified Code(s): N18.6 - End stage renal disease; D63.1 - Anemia in chronic kidney disease; D63.1 - Anemia in chronic kidney disease; Z99.2 - Dependence on renal dialysis; Z99.2 - Dependence on renal dialysis; Z99.2 - Dependence on renal dialysis; Z99.2 - Dependence on renal dialysis (6) Atrial fibrillation Onset Date: 08/22/16 Current Visit: Yes Status: Chronic Plan: Will continue with her rate control medication. Patient not on chronic anti coagulation therapy due to risk for fall, bleeding, and noncompliance. Qualifiers: Atrial fibrillation type: persistent Qualified Code(s): I48.1 - Persistent atrial fibrillation (7) Coronary artery disease Onset Date: 10/02/17 Current Visit: Yes Status: Chronic Plan: Will continue with her medication. Qualifiers: Coronary Disease-Associated Artery/Lesion type: [place] artery [place] vs. transplanted heart: [place] heart Associated angina: without angina Qualified Code(s): I25.10 - Atherosclerotic heart disease of [place] coronary artery without angina pectoris (8) Diabetes mellitus Onset Date: 10/02/17 Current Visit: Yes Status: Chronic Plan: Previous A1c well controlled. Blood sugars elevated due to Solu-Medrol. Will transition off from IV to oral steroid. Will monitor and adjust appropriately. Will continue sliding scale. Qualifiers: Diabetes mellitus type: type 2 Diabetes mellitus exterminator insulin use: with jail use Diabetes mellitus complication status: with kidney complications Diabetes mellitus complication detail: with chronic kidney disease Chronic kidney disease stage: on chronic dialysis Qualified Code(s) : E11.22 - Type 2 diabetes mellitus with diabetic chronic kidney disease; N18.6 - End stage renal disease; Z99.2 - Dependence on renal dialysis; Z99.2 - Dependence on renal dialysis; Z99.2 - Dependence on renal dialysis; N18.6 - End stage renal disease; N18.6 - End stage renal disease; N18.6 - End stage renal disease; Z79.4 - middle or intermediate school principal (current) use of insulin; 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 Will discuss further with nephrology. (10) Hypertension Onset Date: 10/02/17 Current Visit: Yes Status: Chronic Plan: Will continue with her medication. Will monitor and adjust appropriately. Qualifiers: Hypertension type: essential hypertension (11) Hypothyroidism Current Visit: Yes Status: Chronic Plan: Patient with subclinical hypothyroidism. Will continue to monitor closely. This can be monitored as an outpatient. Qualifiers: Hypothyroidism type: acquired Qualified Code(s): E03.9 - Hypothyroidism, unspecified (12) Bacterial pneumonia Current Visit: No Status: Suspected Plan: Pneumonia suspected. Patient started on antibiotic therapy. Will transition to oral medication. Will recheck chest x-ray. Discharge Plan: Home Plan to discharge in: 48 Hours Time Spent Managing Pts Care (In Minutes): 55
[2017-12-30 14:04] LABS: HIV 1/2 Antibody Diff Not indicated.; HIV AG/AB 4TH GEN Non-reactive (Non-reactive)
--- NOTE | 2017-12-30 14:42 | PN ---
Subjective: Currently, the patient is lying in bed. She looks comfortable. She is off the BiPAP. She ate her lunch today. No fever, no chills overnight. No chest pain. She looks exhausted though. Review of Systems: Otherwise, negative. Objective: Vital Signs: Blood pressure now 132/78, respiratory rate 18, pulse 56, temperature 97.4. She is saturating 100% on nasal cannula, 2 L. General: She is alert, does not look in any distress, but exhausted. HEENT: Atraumatic, normocephalic. PERRLA. Oral mucosa is moist on presentation. Neck: Supple. No JVD. Chest: Decreased breath sound at the bases. Heart: Regular rate and rhythm. S1, S2 normal. No gallop or murmur. Abdomen: Soft, nontender. No masses. Emaciated. Positive bowel sounds. Extremities: No clubbing, no cyanosis, or edema. No calf tenderness. Neurologic: The patient is more alert, oriented today, and she is able to follow commands in French . Laboratory Data: Yesterday, showed CBC; hemoglobin is 8.9, white blood cell 10.3, and platelet count 251. Chemistry from today is pending as well. Assessment And Plan: 1.Acute hypoxemic respiratory failure/acute respiratory distress syndrome. The patient looks much b kayleigh. She has off her BiPAP this morning. She is followed by Dr. Mccoy. She [facility]. She denies antibiotic with Levaquin. Also on 48 hours. I appreciate, Dr. Mccoy's input. 2.End-stage renal disease. She is on home dialysis. She had dialysis yesterday and she will have a nother again on Saturday. 3.Sepsis, resolving. Again, she is on Levaquin and cultures pending, negative. 4.Anemia secondary to end-stage renal disease, with each dialysis. 5.DVT prophylaxis, on Lovenox. MT/MODL Voice ID: [id number] Report ID: [id number]
--- NOTE | 2017-12-30 16:29 | P.PN ---
Date of Service: 12/30/17 Vital Signs Temp Pulse Resp BP Pulse Ox 97.4 F 71 18 138/43 L 96 12/30/17 11:28 12/30/17 13:00 12/30/17 13:00 12/30/17 13:00 12/30/17 13:00 Medications Acetaminophen (Tylenol -Extra Strength) 500 mg PO Q6H PRN PRN Reason: [id number] Stop: 01/25/18 07:47 Last Admin: 12/27/17 01:32 Dose: 500 mg Albuterol Sulfate (Proventil 0.083% Neb Soln) 2.5 mg NEB Q4H PRN PRN Reason: WHEEZING Stop: 01/25/18 07:47 Last Admin: 12/30/17 04:22 Dose: 2.5 mg Alprazolam (Xanax) 0.5 mg PO TID LILIA Stop: 01/26/18 14:01 Last Admin: 12/30/17 14:00 Dose: Not Given Arformoterol Tartrate (Brovana) 15 mcg NEB BIDRESP LILIA Stop: 01/29/18 20:01 Aspirin (Ecotrin) 325 mg PO DAILY LILIA Stop: 01/26/18 09:01 Last Admin: 12/30/17 08:19 Dose: 325 mg Atorvastatin Calcium (Lipitor) 40 mg PO BEDTIME LILIA Stop: 01/29/18 21:01 Cholecalciferol (Vitamin D 5,000 Iu Cap) 5,000 unit PO DAILY LILIA Stop: 01/26/18 09:01 Last Admin: 12/30/17 08:19 Dose: 5,000 unit Dextrose (Dextrose 50% Syringe) 12.5 gm IV PRN PRN PRN Reason: HYPOGLYCEMIA Stop: 01/25/18 07:47 Docusate Sodium (Colace Cap) 100 mg PO DAILY LILIA Stop: 01/26/18 09:01 Last Admin: 12/30/17 08:19 Dose: 100 mg Enoxaparin Sodium (Lovenox 30 Mg Inj) 30 mg SQ DAILY 5 PM LILIA Stop: 01/29/18 17:01 Epoetin [place] (Procrit) 10,000 unit IV EVERY HD LILIA Stop: 01/25/18 09:01 Last Admin: 12/26/17 20:22 Dose: 10,000 unit Furosemide (Lasix) 40 mg PO BIDL LILIA Stop: 01/29/18 17:01 Glucagon (Glucagen) 1 mg IM 1X PRN PRN Reason: HYPOGLYCEMIA Stop: 01/25/18 07:47 Heparin Sodium (Porcine) (Heparin 1,000 Units/Ml) 6,000 unit IV EVERY HD PRN PRN Reason: FLUSH AFTER EACH USE Stop: 01/25/18 08:58 Albumin Human (Albumin 25%) 50 mls @ 100 mls/hr IV EVERY HD LILIA Stop: 01/25/18 09:01 Last Admin: 12/28/17 12:17 Dose: 50 mls Insulin Human Regular (Novolin -R) 0 unit SQ ACHS LILIA PRN Reason: Protocol Stop: 01/25/18 11:31 Last Admin: 12/30/17 11:44 Dose: 11 unit Ipratropium [place] (Atrovent Neb) 0.5 mg NEB Q4H PRN PRN Reason: WHEEZING Stop: 01/25/18 07:47 Last Admin: 12/30/17 04:22 Dose: 0.5 mg Levofloxacin (Levaquin) 250 mg PO Q48H LILIA Stop: 01/30/18 09:01 Mannitol (Mannitol 12.5 Gm/50 Ml Vial) 12.5 gm IV EVERY HD PRN PRN Reason: BP support at hemodialysis Stop: 01/25/18 08:58 Metoprolol Succinate (Toprol Xl) 25 mg PO BEDTIME LILIA Stop: 01/25/18 21:01 Last Admin: 12/29/17 21:56 Dose: 25 mg Ondansetron HCl (Zofran) 4 mg IV Q4H PRN PRN Reason: NAUSEA / VOMITING Pantoprazole Sodium (Protonix Tab) 40 mg PO DAILYAC [facility] Stop: 01/30/18 06:31 Prasugrel (Effient) 10 mg PO DAILY LILIA Stop: 01/26/18 09:01 Last Admin: 12/30/17 08:19 Dose: 10 mg Prednisone (Deltasone) 20 mg PO BID LILIA Stop: 01/29/18 21:01 Sodium Chloride (Normal Saline Flush) 10 ml IV BID LILIA Stop: 01/25/18 09:01 Last Admin: 12/30/17 08:19 Dose: 10 ml Microbiology Results 12/26/17 07:05 Blood - Other Aerobic Blood Culture - Preliminary No growth in 24 hours. 12/26/17 07:05 Blood - Other Anaerobic Blood Culture - Preliminary No growth in 24 hours. 12/26/17 07:05 Blood - Other Aerobic Blood Culture - Preliminary No growth in 24 hours. 12/26/17 07:05 Blood - Other Anaerobic Blood Culture - Preliminary No growth in 24 hours. Assessment/ Plan: Nephrology CPS stable without CP or SOB. +Cough No acute events overnight. +Appetite Vitals, medications, blood work and imaging reviewed in the chart. General: Oriented x3, Cooperative HEENT: Mucous membr. moist/pink Neck: Supple Respiratory: Diminished Cardiovascular: No edema, Regular rate/rhythm, No rubs Gastrointestinal: Soft and benign, Non-distended Musculoskeletal: No clubbing, No contractures Integumentary: No rashes, No cyanosis Neurological: Normal speech Blood work reviewed in the chart. Initial blood work: Hgb 8.6 Imagings Data: EXAM DESCRIPTION: RAD - Chest Single View - 12/26/2017 7:21 am CLINICAL HISTORY: Shortness of breath. COMPARISON: 12/21/2017 FINDINGS: Portable technique limits examination quality. Mild improvement in extensive bilateral pulmonary opacities since comparative study. The heart is upper limit normal in size. No displaced fractures.Aortic atherosclerosis. IMPRESSION: Mild improvement lung aeration since comparative studies. Conclusions/Impression: A/ A/C Diastolic CHF. Acute respiratory failure/ hypoxia. ESRD on HD. HTN with CKD. Anemia in CKD. DM II with CKD. YONAS/ Secondary HyperPTH. P/ Continue current POC and Medications. Bipap prn. Next HD tomorrow. Follow up with pulmonary. AM labs. Daily weight. Case discussed with Dr. Orr.
[2017-12-30] MEDS: ENOXAPARIN 30 MG/0.3 ML SQ SCH (18:10)
[2017-12-30] MEDS: FUROSEMIDE 40 MG TABLET PO SCH (18:10)
[2017-12-30] MEDS: ARFORMOTEROL TARTRATE 15 MCG/2 ML VIAL.NEB NEB SCH (20:10)
[2017-12-30] MEDS ORDERED: INSULIN 70/30 100 UNITS/ML SQ ONE (21:33)
[2017-12-30] MEDS: ATORVASTATIN 40 MG TAB PO SCH (22:28)
[2017-12-30] MEDS: predniSONE 20 MG TAB PO SCH (22:28)
[2017-12-30] MEDS: METOPROLOL XL 25 MG TAB PO SCH (22:28)
[2017-12-31 04:51] LABS: Absolute Lymphocytes (CBC) 0.6 K/uL (0.7-4.9); Absolute Monocytes 0.8 K/uL (0.1-1.3); Absolute Neutrophil 12.9 K/uL (1.8-8.0); Basophils % 0.1 % (0-1.3); Eosinophils % 0.1 % (0-4.4); Hematocrit 29.2 % (36.0-45.0); Lymphocytes % 4.2 % (15.3-44.8); MCH 30.4 pg (27.0-35.0); MCV 91.9 fL (80-100); Monocytes % 5.3 % (3.3-12.3); RBC Red Blood Cell Count 3.18 M/uL (3.86-4.86)
[2017-12-31 05:16] LABS: Magnesium 2.4 mg/dL (1.8-2.5); Potassium 4.8 mEq/L (3.6-5.0)
[2017-12-31] MEDS: PANTOPRAZOLE 40MG TABLET PO SCH (05:48)
[2017-12-31] MEDS: ARFORMOTEROL TARTRATE 15 MCG/2 ML VIAL.NEB NEB SCH ×2 (08:00→19:50)
[2017-12-31] MEDS ORDERED: HYDRALAZINE HCL 20 MG/ML VIAL IV PRN (08:02)
[2017-12-31] MEDS: INSULIN -REGULAR HUMAN 50 UNIT/0.5 ML ML SQ SCH ×4 (08:27→21:53)
[2017-12-31] MEDS: ASPIRIN EC 325 MG TABLET PO SCH (08:28)
[2017-12-31] MEDS: ALPRAZOLAM 0.5 MG TABLET PO SCH ×3 (08:28→21:53)
[2017-12-31] MEDS: FUROSEMIDE 40 MG TABLET PO SCH ×2 (08:28→16:31)
[2017-12-31] MEDS: VITAMIN D 5,000 UNIT CAP PO SCH (08:29)
[2017-12-31] MEDS: levoFLOXacin 250 MG TAB PO SCH (08:29)
[2017-12-31] MEDS: predniSONE 20 MG TAB PO SCH ×2 (08:29→21:53)
[2017-12-31] MEDS: DOCUSATE NA 100 MG CAP PO SCH (08:29)
--- NOTE | 2017-12-31 08:30 | RAD REPORT ---
EXAM DESCRIPTION: Wiley Pa And Lat (2 Views)12/31/2017 7:32 am CLINICAL HISTORY: Shortness of breath COMPARISON: December 27 FINDINGS: Mild improvement in the diffuse bilateral pulmonary opacities has occurred. The heart rem ains enlarged IMPRESSION: Mild improvement in the diffuse bilateral pulmonary opacities which may represent pulmo nary edema
[2017-12-31] MEDS: EPOETIN ALFA 10,000 UNIT/ML VIAL IV SCH (09:19)
[2017-12-31] MEDS: ALBUMIN HUMAN 25% 50 ML IV SCH (10:30)
[2017-12-31] MEDS: ENOXAPARIN 30 MG/0.3 ML SQ SCH (16:32)
--- NOTE | 2017-12-31 16:46 | P.PN ---
Subjective Date of Service: 12/31/17 Primary Care Provider: Dr. Galvan Chief Complaint: Respiratory failure Subjective: Doing well (Patient doing slightly better today. Less short of breath noted.) Physical Examination - Vital Signs Temperature: 97.5 F Blood Pressure: 148/63 Pulse: 61 Respirations: 18 Pulse Ox (%): 96 - Physical Exam General: Alert, In no apparent distress, Oriented x3, Cooperative HEENT: Atraumatic Neck: Supple Respiratory: Crackles/rales (Bilateral) Cardiovascular: Normal pulses, Regular rate/rhythm Gastrointestinal: Normal bowel sounds, Soft and benign, Non-distended, No masses , No rebound, No guarding Musculoskeletal: No erythema, No tenderness, No warmth Integumentary: No erythema, No warmth, No cyanosis Neurological: Normal speech, Normal strength at 5/5 x4 extr, Normal tone - Studies Microbiology Data (last 24 hrs): 12/26/17 07:05 Blood - Other Aerobic Blood Culture - Final No growth in 5 days. 12/26/17 07:05 Blood - Other Anaerobic Blood Culture - Final No growth in 5 days. 12/26/17 07:05 Blood - Other Aerobic Blood Culture - Final No growth in 5 days. 12/26/17 07:05 Blood - Other Anaerobic Blood Culture - Final No growth in 5 days. Medications List Reviewed: Yes Assessment & Plan - Problems (Diagnosis) (1) ARDS (adult respiratory distress syndrome) Current Visit: Yes Status: Acute Plan: Patient doing better. Patient improved with diuresis, oxygen, and prednisone. Will discuss further with pulmonology. I would recommend the patient to go to a skilled facility. Social work did discuss this in detail with the family. They are not wanting to go to a skilled facility at this time. Will plan for discharge once her breathing has improved. Patient to get dialysis today. Will discuss further with nephrology. (2) CHF (congestive heart failure) Onset Date: 10/16/17 Current Visit: Yes Status: Acute Plan: Will continue with diuresis and dialysis. Qualifiers: Heart failure type: diastolic Heart failure chronicity: acute on chronic Qualified Code(s): I50.33 - Acute on chronic diastolic (congestive) heart failure (3) COPD (chronic obstructive pulmonary disease) Current Visit: Yes Status: Chronic Plan: Patient with underlying COPD. Continue with current treatment plan. Patient using home oxygen. Qualifiers: COPD type: chronic bronchitis Chronic bronchitis type: unspecified Qualified Code(s): J42 - Unspecified chronic bronchitis (4) Pulmonary edema Onset Date: 10/16/17 Current Visit: Yes Status: Acute Plan: Continue with above plan of care. Qualifiers: Chronicity: acute (5) Anemia Onset Date: 12/06/14 Current Visit: Yes Status: Chronic Plan: This is a chronic disease. Will monitor closely. Qualifiers: Anemia type: due to chronic kidney disease Chronic kidney disease stage: on chronic dialysis Qualified Code(s): N18.6 - End stage renal disease; D63.1 - Anemia in chronic kidney disease; D63.1 - Anemia in chronic kidney disease; Z99.2 - Dependence on renal dialysis; Z99.2 - Dependence on renal dialysis; Z99.2 - Dependence on renal dialysis; Z99.2 - Dependence on renal dialysis (6) Atrial fibrillation Onset Date: 08/22/16 Current Visit: Yes Status: Chronic Plan: Will continue with her rate control medication. Patient not on chronic anti coagulation therapy due to risk for fall, bleeding, and noncompliance. Qualifiers: Atrial fibrillation type: persistent Qualified Code(s): I48.1 - Persistent atrial fibrillation (7) Coronary artery disease Onset Date: 10/02/17 Current Visit: Yes Status: Chronic Plan: Will continue with her medication. Qualifiers: Coronary Disease-Associated Artery/Lesion type: [place] artery [place] vs. transplanted heart: [place] heart Associated angina: without angina Qualified Code(s): I25.10 - Atherosclerotic heart disease of [place] coronary artery without angina pectoris (8) Diabetes mellitus Onset Date: 10/02/17 Current Visit: Yes Status: Chronic Plan: Previous A1c well controlled. Blood sugar elevated with prednisone. Will continue with sliding scale. May need to start medication for blood sugar. Qualifiers: Diabetes mellitus type: type 2 Diabetes mellitus vermin exterminator insulin use: with vermin exterminator use Diabetes mellitus complication status: with kidney complications Diabetes mellitus complication detail: with chronic kidney disease Chronic kidney disease stage: on chronic dialysis Qualified Code(s) : E11.22 - Type 2 diabetes mellitus with diabetic chronic kidney disease; N18.6 - End stage renal disease; Z99.2 - Dependence on renal dialysis; Z99.2 - Dependence on renal dialysis; Z99.2 - Dependence on renal dialysis; N18.6 - End stage renal disease; N18.6 - End stage renal disease; N18.6 - End stage renal disease; Z79.4 - correction (current) use of insulin; Z79.4 - correction (current ) use of insulin; Z79.4 - marine oil terminal superintendent (current) use of insulin; Z79.4 - marine oil terminal superintendent (current) use of insulin; Z99.2 - Dependence on renal dialysis (9) End stage renal disease Onset Date: 10/02/17 Current Visit: Yes Status: Chronic Plan: Will continue with dialysis. Will discuss further with nephrology. (10) Hypertension Onset Date: 10/02/17 Current Visit: Yes Status: Chronic Plan: Will continue with her medication. Will monitor and adjust appropriately. Qualifiers: Hypertension type: essential hypertension (11) Hypothyroidism Current Visit: Yes Status: Chronic Plan: Patient with subclinical hypothyroidism. Will continue to monitor closely. This can be monitored as an outpatient. Qualifiers: Hypothyroidism type: acquired Qualified Code(s): E03.9 - Hypothyroidism, unspecified (12) Bacterial pneumonia Current Visit: No Status: Suspected Plan: Pneumonia suspected. Patient started on antibiotic therapy. Will transition to oral medication. Chest x-ray shows improvement. Discharge Plan: Home Plan to discharge in: 24 Hours Time Spent Managing Pts Care (In Minutes): 55
--- NOTE | 2017-12-31 20:13 | P.PN ---
Date of Service: 12/31/17 Vital Signs Temp Pulse Resp BP Pulse Ox 97.5 F 61 18 148/63 H 96 12/31/17 16:46 12/31/17 16:46 12/31/17 16:46 12/31/17 16:46 12/31/17 16:46 Medications Acetaminophen (Tylenol -Extra Strength) 500 mg PO Q6H PRN PRN Reason: [id number] Stop: 01/25/18 07:47 Last Admin: 12/27/17 01:32 Dose: 500 mg Albuterol Sulfate (Proventil 0.083% Neb Soln) 2.5 mg NEB Q4H PRN PRN Reason: WHEEZING Stop: 01/25/18 07:47 Last Admin: 12/30/17 04:22 Dose: 2.5 mg Alprazolam (Xanax) 0.5 mg PO TID LILIA Stop: 01/26/18 14:01 Last Admin: 12/31/17 13:40 Dose: 0.5 mg Arformoterol Tartrate (Brovana) 15 mcg NEB BIDRESP LILIA Stop: 01/29/18 20:01 Last Admin: 12/31/17 08:00 Dose: Not Given Aspirin (Ecotrin) 325 mg PO DAILY LILIA Stop: 01/26/18 09:01 Last Admin: 12/31/17 08:28 Dose: 325 mg Atorvastatin Calcium (Lipitor) 40 mg PO BEDTIME LILIA Stop: 01/29/18 21:01 Last Admin: 12/30/17 22:28 Dose: 40 mg Cholecalciferol (Vitamin D 5,000 Iu Cap) 5,000 unit PO DAILY LILIA Stop: 01/26/18 09:01 Last Admin: 12/31/17 08:29 Dose: 5,000 unit Dextrose (Dextrose 50% Syringe) 12.5 gm IV PRN PRN PRN Reason: HYPOGLYCEMIA Stop: 01/25/18 07:47 Docusate Sodium (Colace Cap) 100 mg PO DAILY LILIA Stop: 01/26/18 09:01 Last Admin: 12/31/17 08:29 Dose: 100 mg Enoxaparin Sodium (Lovenox 30 Mg Inj) 30 mg SQ DAILY 5 PM LILIA Stop: 01/29/18 17:01 Last Admin: 12/31/17 16:32 Dose: 30 mg Epoetin [place] (Procrit) 10,000 unit IV EVERY HD LILIA Stop: 01/25/18 09:01 Last Admin: 12/31/17 09:19 Dose: 10,000 unit Furosemide (Lasix) 40 mg PO BIDL LILIA Stop: 01/29/18 17:01 Last Admin: 12/31/17 16:31 Dose: 40 mg Glucagon (Glucagen) 1 mg IM 1X PRN PRN Reason: HYPOGLYCEMIA Stop: 01/25/18 07:47 Heparin Sodium (Porcine) (Heparin 1,000 Units/Ml) 6,000 unit IV EVERY HD PRN PRN Reason: FLUSH AFTER EACH USE Stop: 01/25/18 08:58 Last Admin: 12/31/17 09:19 Dose: 6,000 unit Hydralazine HCl (Apresoline) 10 mg IV Q6HP PRN PRN Reason: HIGH BP Stop: 01/30/18 08:03 Albumin Human (Albumin 25%) 50 mls @ 100 mls/hr IV EVERY HD LILIA Stop: 01/25/18 09:01 Last Admin: 12/31/17 10:30 Dose: 50 mls Insulin Human Regular (Novolin -R) 0 unit SQ ACHS LILIA PRN Reason: Protocol Stop: 01/25/18 11:31 Last Admin: 12/31/17 17:09 Dose: 13 unit Ipratropium [place] (Atrovent Neb) 0.5 mg NEB Q4H PRN PRN Reason: WHEEZING Stop: 01/25/18 07:47 Last Admin: 12/30/17 04:22 Dose: 0.5 mg Levofloxacin (Levaquin) 250 mg PO Q48H LILIA Stop: 01/30/18 09:01 Last Admin: 12/31/17 08:29 Dose: 250 mg Mannitol (Mannitol 12.5 Gm/50 Ml Vial) 12.5 gm IV EVERY HD PRN PRN Reason: BP support at hemodialysis Stop: 01/25/18 08:58 Last Admin: 12/31/17 10:29 Dose: 12.5 gm Metoprolol Succinate (Toprol Xl) 25 mg PO BEDTIME LILIA Stop: 01/25/18 21:01 Last Admin: 12/30/17 22:28 Dose: 25 mg Ondansetron HCl (Zofran) 4 mg IV Q4H PRN PRN Reason: NAUSEA / VOMITING Pantoprazole Sodium (Protonix Tab) 40 mg PO DAILYAC [facility] Stop: 01/30/18 06:31 Last Admin: 12/31/17 05:48 Dose: 40 mg Prasugrel (Effient) 10 mg PO DAILY LILIA Stop: 01/26/18 09:01 Last Admin: 12/30/17 08:19 Dose: 10 mg Prednisone (Deltasone) 20 mg PO BID [facility] Stop: 01/29/18 21:01 Last Admin: 12/31/17 08:29 Dose: 20 mg Sodium Chloride (Normal Saline Flush) 10 ml IV BID [facility] Stop: 01/25/18 09:01 Last Admin: 12/31/17 08:29 Dose: 10 ml Microbiology Results 12/26/17 07:05 Blood - Other Aerobic Blood Culture - Final No growth in 5 days. 12/26/17 07:05 Blood - Other Anaerobic Blood Culture - Final No growth in 5 days. 12/26/17 07:05 Blood - Other Aerobic Blood Culture - Final No growth in 5 days. 12/26/17 07:05 Blood - Other Anaerobic Blood Culture - Final No growth in 5 days. Assessment/ Plan: Nephrology CPS stable without CP or SOB. +Cough No acute events overnight. +Appetite Vitals, medications, blood work and imaging reviewed in the chart. General: Oriented x3, Cooperative HEENT: Mucous membr. moist/pink Neck: Supple Respiratory: CTA Cardiovascular: No edema, Regular rate/rhythm, No rubs Gastrointestinal: Soft and benign, Non-distended Musculoskeletal: No clubbing, No contractures Integumentary: No rashes, No cyanosis Neurological: Normal speech Blood work reviewed in the chart. Initial blood work: Hgb 8.6 Imagings Data: EXAM DESCRIPTION: RAD - Chest Single View - 12/26/2017 7:21 am CLINICAL HISTORY: Shortness of breath. COMPARISON: 12/21/2017 FINDINGS: Portable technique limits examination quality. Mild improvement in extensive bilateral pulmonary opacities since comparative study. The heart is upper limit normal in size. No displaced fractures.Aortic atherosclerosis. IMPRESSION: Mild improvement lung aeration since comparative studies. Conclusions/Impression: A/ A/C Diastolic CHF. Acute respiratory failure/ hypoxia. ESRD on HD. HTN with CKD. Anemia in CKD. DM II with CKD. YONAS/ Secondary HyperPTH. P/ Continue current POC and Medications. Bipap prn. HD today as ordered. Follow up with pulmonary. AM labs. Daily weight. Case discussed with Dr. Orr. Possible discharge to SNF.
[2017-12-31] MEDS: METOPROLOL XL 25 MG TAB PO SCH (21:53)
[2017-12-31] MEDS: ATORVASTATIN 40 MG TAB PO SCH (21:53)
[2017-12-31] MEDS ORDERED: D50W 25 GM/50 ML SYRINGE IV PRN (23:19)
[2017-12-31] MEDS ORDERED: GLUCAGON 1 MG/VIAL IM PRN (23:19)
[2018-01-01 05:02] LABS: Absolute Lymphocytes (CBC) 0.7 K/uL (0.7-4.9); Absolute Monocytes 0.7 K/uL (0.1-1.3); Absolute Neutrophil 9.6 K/uL (1.8-8.0); Basophils % 0.2 % (0-1.3); Hematocrit 30.9 % (36.0-45.0); Lymphocytes % 6.4 % (15.3-44.8); MCV 94.3 fL (80-100); MPV 8.4 fL (7.6-11.3); Monocytes % 6.6 % (3.3-12.3); RBC Red Blood Cell Count 3.27 M/uL (3.86-4.86)
[2018-01-01 05:31] LABS: Magnesium 2.2 mg/dL (1.8-2.5); Potassium 4.5 mEq/L (3.6-5.0)
[2018-01-01] MEDS: PANTOPRAZOLE 40MG TABLET PO SCH (06:45)
[2018-01-01 06:47] LABS: Anisocytosis 1+; Blood Morphology Comment NOTED (NOT SEEN); Platelet Estimate ADEQ
[2018-01-01 06:50] LABS: Basophilic Stippling 1+
[2018-01-01] MEDS: INSULIN DETEMIR 100 UNIT/1 ML INSULIN SQ SCH (08:00)
[2018-01-01] MEDS: ARFORMOTEROL TARTRATE 15 MCG/2 ML VIAL.NEB NEB SCH ×2 (08:16→19:35)
[2018-01-01] MEDS: INSULIN -REGULAR HUMAN 50 UNIT/0.5 ML ML SQ SCH ×4 (08:54→20:59)
[2018-01-01] MEDS: DOCUSATE NA 100 MG CAP PO SCH (10:29)
[2018-01-01] MEDS: ASPIRIN EC 325 MG TABLET PO SCH (10:29)
[2018-01-01] MEDS: VITAMIN D 5,000 UNIT CAP PO SCH (10:29)
[2018-01-01] MEDS: PRASUGREL (EFFIENT) 10 MG TAB PO SCH ×2 (10:29→10:32)
[2018-01-01] MEDS: predniSONE 20 MG TAB PO SCH ×2 (10:29→20:59)
[2018-01-01] MEDS: ALPRAZOLAM 0.5 MG TABLET PO SCH ×3 (10:30→20:58)
[2018-01-01] MEDS: FUROSEMIDE 40 MG TABLET PO SCH ×2 (10:30→17:44)
--- NOTE | 2018-01-01 11:44 | P.PN ---
Subjective Date of Service: 01/01/18 Primary Care Provider: Dr. Galvan Chief Complaint: Respiratory failure Subjective: Other (Patient appears better. Still with fatigue. at bedside) Physical Examination - Vital Signs Temperature: 97.2 F Blood Pressure: 188/80 Pulse: 56 Respirations: 17 Pulse Ox (%): 97 - Physical Exam General: Alert, In no apparent distress, Cooperative HEENT: Atraumatic Neck: Supple Respiratory: Diminished (Somewhat diminished bilaterally) Cardiovascular: Normal pulses, Regular rate/rhythm Gastrointestinal: Normal bowel sounds, Soft and benign, Non-distended, No masses , No rebound, No guarding Musculoskeletal: No erythema, No tenderness, No warmth Integumentary: No erythema, No warmth, No cyanosis Neurological: Normal speech, Normal strength at 5/5 x4 extr, Normal tone - Studies Microbiology Data (last 24 hrs): 12/26/17 07:05 Blood - Other Aerobic Blood Culture - Final No growth in 5 days. 12/26/17 07:05 Blood - Other Anaerobic Blood Culture - Final No growth in 5 days. 12/26/17 07:05 Blood - Other Aerobic Blood Culture - Final No growth in 5 days. 12/26/17 07:05 Blood - Other Anaerobic Blood Culture - Final No growth in 5 days. Medications List Reviewed: Yes Assessment & Plan - Problems (Diagnosis) (1) ARDS (adult respiratory distress syndrome) Current Visit: Yes Status: Acute Plan: Patient doing better. Will continue with current plan of care. Family does not want her to go to a skilled facility. Patient still requiring assistance with physical therapy. Patient was evaluated by inpatient rehab but she did not appear to be a qualified applicant. Will discuss with pulmonology about her care. Case discussed with nephrology. Will Re discuss with nephrology about plan of care concerning her dialysis if her condition does not improve. May need to consider hospice. (2) CHF (congestive heart failure) Onset Date: 10/16/17 Current Visit: Yes Status: Acute Plan: Will continue with diuresis and dialysis. Qualifiers: Heart failure type: diastolic Heart failure chronicity: acute on chronic Qualified Code(s): I50.33 - Acute on chronic diastolic (congestive) heart failure (3) COPD (chronic obstructive pulmonary disease) Current Visit: Yes Status: Chronic Plan: Patient with underlying COPD. Continue with current treatment plan. Patient using home oxygen. Patient may require long-term steroid. Qualifiers: COPD type: chronic bronchitis Chronic bronchitis type: unspecified Qualified Code(s): J42 - Unspecified chronic bronchitis (4) Pulmonary edema Onset Date: 10/16/17 Current Visit: Yes Status: Acute Plan: Continue with above plan of care. Will have physical therapy assess ambulation. Qualifiers: Chronicity: acute (5) Anemia Onset Date: 12/06/14 Current Visit: Yes Status: Chronic Plan: This is a chronic disease. Will monitor closely. Qualifiers: Anemia type: due to chronic kidney disease Chronic kidney disease stage: on chronic dialysis Qualified Code(s): N18.6 - End stage renal disease; D63.1 - Anemia in chronic kidney disease; D63.1 - Anemia in chronic kidney disease; Z99.2 - Dependence on renal dialysis; Z99.2 - Dependence on renal dialysis; Z99.2 - Dependence on renal dialysis; Z99.2 - Dependence on renal dialysis (6) Atrial fibrillation Onset Date: 08/22/16 Current Visit: Yes Status: Chronic Plan: Will continue with her rate control medication. Patient not on chronic anti coagulation therapy due to risk for fall, bleeding, and noncompliance. Qualifiers: Atrial fibrillation type: persistent Qualified Code(s): I48.1 - Persistent atrial fibrillation (7) Coronary artery disease Onset Date: 10/02/17 Current Visit: Yes Status: Chronic Plan: Will continue with her medication. Qualifiers: Coronary Disease-Associated Artery/Lesion type: [place] artery [place] vs. transplanted heart: [place] heart Associated angina: without angina Qualified Code(s): I25.10 - Atherosclerotic heart disease of [place] coronary artery without angina pectoris (8) Diabetes mellitus Onset Date: 10/02/17 Current Visit: Yes Status: Chronic Plan: Previous A1c well controlled. Blood sugars elevated on prednisone. Will start basal insulin. Will monitor and adjust appropriately. Qualifiers: Diabetes mellitus type: type 2 Diabetes mellitus hearing aid assistant insulin use: with hearing aid assistant use Diabetes mellitus complication status: with kidney complications Diabetes mellitus complication detail: with chronic kidney disease Chronic kidney disease stage: on chronic dialysis Qualified Code(s) : E11.22 - Type 2 diabetes mellitus with diabetic chronic kidney disease; N18.6 - End stage renal disease; Z99.2 - Dependence on renal dialysis; Z99.2 - Dependence on renal dialysis; Z99.2 - Dependence on renal dialysis; N18.6 - End stage renal disease; N18.6 - End stage renal disease; N18.6 - End stage renal disease; Z79.4 - manager digital ad operations (current) use of insulin; Z79.4 - retirement (current ) use of insulin; Z79.4 - manager digital ad operations (current) use of insulin; Z79.4 - manager digital ad operations (current) use of insulin; Z99.2 - Dependence on renal dialysis (9) End stage renal disease Onset Date: 10/02/17 Current Visit: Yes Status: Chronic Plan: Will continue with dialysis. Will discuss further with nephrology. (10) Hypertension Onset Date: 10/02/17 Current Visit: Yes Status: Chronic Plan: Will continue with her medication. Will monitor and adjust appropriately. Qualifiers: Hypertension type: essential hypertension (11) Hypothyroidism Current Visit: Yes Status: Chronic Plan: Patient with subclinical hypothyroidism. Will continue to monitor closely. This can be monitored as an outpatient. Qualifiers: Hypothyroidism type: acquired Qualified Code(s): E03.9 - Hypothyroidism, unspecified (12) Bacterial pneumonia Current Visit: No Status: Suspected Plan: Pneumonia suspected. Patient started on antibiotic therapy. Will transition to oral medication. Chest x-ray shows improvement. Discharge Plan: Home Plan to discharge in: 24 Hours Time Spent Managing Pts Care (In Minutes): 55
[2018-01-01] MEDS: ENOXAPARIN 30 MG/0.3 ML SQ SCH (17:44)
[2018-01-01] MEDS: INSULIN -REGULAR HUMAN 50 UNIT/0.5 ML ML SQ ONE ×2 (18:29→18:33)
[2018-01-01] MEDS: METOPROLOL XL 25 MG TAB PO SCH (20:58)
[2018-01-01] MEDS: ATORVASTATIN 40 MG TAB PO SCH (20:58)
--- NOTE | 2018-01-01 21:18 | P.PN ---
Date of Service: 01/01/18 Vital Signs Temp Pulse Resp BP Pulse Ox 98.1 F 69 16 142/67 H 95 01/01/18 16:00 01/01/18 20:58 01/01/18 16:49 01/01/18 20:58 01/01/18 16:49 Medications Acetaminophen (Tylenol -Extra Strength) 500 mg PO Q6H PRN PRN Reason: [id number] Stop: 01/25/18 07:47 Last Admin: 12/27/17 01:32 Dose: 500 mg Albuterol Sulfate (Proventil 0.083% Neb Soln) 2.5 mg NEB Q4H PRN PRN Reason: WHEEZING Stop: 01/25/18 07:47 Last Admin: 12/30/17 04:22 Dose: 2.5 mg Alprazolam (Xanax) 0.5 mg PO TID LILIA Stop: 01/26/18 14:01 Last Admin: 01/01/18 20:58 Dose: 0.5 mg Arformoterol Tartrate (Brovana) 15 mcg NEB BIDRESP LILIA Stop: 01/29/18 20:01 Last Admin: 01/01/18 19:35 Dose: 15 mcg Aspirin (Ecotrin) 325 mg PO DAILY LILIA Stop: 01/26/18 09:01 Last Admin: 01/01/18 10:29 Dose: 325 mg Atorvastatin Calcium (Lipitor) 40 mg PO BEDTIME LILIA Stop: 01/29/18 21:01 Last Admin: 01/01/18 20:58 Dose: 40 mg Cholecalciferol (Vitamin D 5,000 Iu Cap) 5,000 unit PO DAILY LILIA Stop: 01/26/18 09:01 Last Admin: 01/01/18 10:29 Dose: 5,000 unit Dextrose (Dextrose 50% Syringe) 12.5 gm IV PRN PRN; Protocol PRN Reason: HYPOGLYCEMIA Stop: 01/30/18 23:20 Docusate Sodium (Colace Cap) 100 mg PO DAILY LILIA Stop: 01/26/18 09:01 Last Admin: 01/01/18 10:29 Dose: 100 mg Enoxaparin Sodium (Lovenox 30 Mg Inj) 30 mg SQ DAILY 5 PM LILIA Stop: 01/29/18 17:01 Last Admin: 01/01/18 17:44 Dose: 30 mg Epoetin [place] (Procrit) 10,000 unit IV EVERY HD LILIA Stop: 01/25/18 09:01 Last Admin: 12/31/17 09:19 Dose: 10,000 unit Furosemide (Lasix) 40 mg PO BIDL LILIA Stop: 01/29/18 17:01 Last Admin: 01/01/18 17:44 Dose: 40 mg Glucagon (Glucagen) 1 mg IM 1X PRN; Protocol PRN Reason: HYPOGLYCEMIA Stop: 01/30/18 23:20 Heparin Sodium (Porcine) (Heparin 1,000 Units/Ml) 6,000 unit IV EVERY HD PRN PRN Reason: FLUSH AFTER EACH USE Stop: 01/25/18 08:58 Last Admin: 12/31/17 09:19 Dose: 6,000 unit Hydralazine HCl (Apresoline) 10 mg IV Q6HP PRN PRN Reason: HIGH BP Stop: 01/30/18 08:03 Albumin Human (Albumin 25%) 50 mls @ 100 mls/hr IV EVERY HD LILIA Stop: 01/25/18 09:01 Last Admin: 12/31/17 10:30 Dose: 50 mls Insulin Detemir (Levemir) 10 units SQ DAILY WITH BREAKFAST LILIA Stop: 01/31/18 08:01 Last Admin: 01/01/18 08:00 Dose: 10 units Insulin Human Regular (Novolin -R) 0 unit SQ ACHS LILIA PRN Reason: Protocol Stop: 01/31/18 07:31 Last Admin: 01/01/18 20:59 Dose: 14 unit Insulin Human Regular (Novolin -R) 10 unit SQ ONCE ONE Stop: 01/02/18 18:22 Last Admin: 01/01/18 18:33 Dose: 10 unit Ipratropium [place] (Atrovent Neb) 0.5 mg NEB Q4H PRN PRN Reason: WHEEZING Stop: 01/25/18 07:47 Last Admin: 12/30/17 04:22 Dose: 0.5 mg Levofloxacin (Levaquin) 250 mg PO Q48H LILIA Stop: 01/30/18 09:01 Last Admin: 12/31/17 08:29 Dose: 250 mg Mannitol (Mannitol 12.5 Gm/50 Ml Vial) 12.5 gm IV EVERY HD PRN PRN Reason: BP support at hemodialysis Stop: 01/25/18 08:58 Last Admin: 12/31/17 10:29 Dose: 12.5 gm Metoprolol Succinate (Toprol Xl) 25 mg PO BEDTIME LILIA Stop: 01/25/18 21:01 Last Admin: 01/01/18 20:58 Dose: 25 mg Ondansetron HCl (Zofran) 4 mg IV Q4H PRN PRN Reason: NAUSEA / VOMITING Pantoprazole Sodium (Protonix Tab) 40 mg PO DAILYAC LILIA Stop: 01/30/18 06:31 Last Admin: 01/01/18 06:45 Dose: 40 mg Prasugrel (Effient) 10 mg PO DAILY LILIA Stop: 01/26/18 09:01 Last Admin: 01/01/18 10:32 Dose: 10 mg Prednisone (Deltasone) 20 mg PO BID LILIA Stop: 01/29/18 21:01 Last Admin: 01/01/18 20:59 Dose: 20 mg Sodium Chloride (Normal Saline Flush) 10 ml IV BID [facility] Stop: 01/25/18 09:01 Last Admin: 01/01/18 21:01 Dose: 10 ml Microbiology Results 12/26/17 07:05 Blood - Other Aerobic Blood Culture - Final No growth in 5 days. 12/26/17 07:05 Blood - Other Anaerobic Blood Culture - Final No growth in 5 days. 12/26/17 07:05 Blood - Other Aerobic Blood Culture - Final No growth in 5 days. 12/26/17 07:05 Blood - Other Anaerobic Blood Culture - Final No growth in 5 days. Assessment/ Plan: Nephrology CPS stable without CP or SOB. +Cough No acute events overnight. +Appetite +Fatigue Vitals, medications, blood work and imaging reviewed in the chart. General: Oriented x3, Cooperative HEENT: Mucous membr. moist/pink Neck: Supple Respiratory: CTA Cardiovascular: No edema, Regular rate/rhythm, No rubs Gastrointestinal: Soft and benign, Non-distended Musculoskeletal: No clubbing, No contractures Integumentary: No rashes, No cyanosis Neurological: Normal speech Blood work reviewed in the chart. Initial blood work: Hgb 8.6 Imagings Data: EXAM DESCRIPTION: RAD - Chest Single View - 12/26/2017 7:21 am CLINICAL HISTORY: Shortness of breath. COMPARISON: 12/21/2017 FINDINGS: Portable technique limits examination quality. Mild improvement in extensive bilateral pulmonary opacities since comparative study. The heart is upper limit normal in size. No displaced fractures.Aortic atherosclerosis. IMPRESSION: Mild improvement lung aeration since comparative studies. Conclusions/Impression: A/ A/C Diastolic CHF. Acute respiratory failure/ hypoxia. ESRD on HD. HTN with CKD. Anemia in CKD. DM II with CKD. YONAS/ Secondary HyperPTH. P/ Continue current POC and Medications. Bipap prn. HD today tomorrow. Follow up with pulmonary. Titrate insulin as needed to improve BG control. AM labs. Daily weight. Case discussed with Dr. Orr.
[2018-01-02 04:43] LABS: Magnesium 2.2 mg/dL (1.8-2.5)
[2018-01-02 05:06] LABS: Absolute Lymphocytes (CBC) 0.7 K/uL (0.7-4.9); Absolute Monocytes 0.8 K/uL (0.1-1.3); Absolute Neutrophil 13.8 K/uL (1.8-8.0); Basophils % 0.2 % (0-1.3); Eosinophils % 0.1 % (0-4.4); Hematocrit 31.6 % (36.0-45.0); Lymphocytes % 4.5 % (15.3-44.8); MCH 29.7 pg (27.0-35.0); MCV 93.6 fL (80-100); MPV 8.5 fL (7.6-11.3); Monocytes % 5.2 % (3.3-12.3); RBC Red Blood Cell Count 3.37 M/uL (3.86-4.86)
[2018-01-02 05:07] VITALS: BMI 21.9
[2018-01-02] MEDS: PANTOPRAZOLE 40MG TABLET PO SCH (05:08)
[2018-01-02 05:16] LABS: Anisocytosis 1+; Basophilic Stippling 1+; Blood Morphology Comment NOTED (NOT SEEN); Platelet Estimate ADEQ; Polychromasia SLIGHT
[2018-01-02] MEDS: ARFORMOTEROL TARTRATE 15 MCG/2 ML VIAL.NEB NEB SCH (07:30)
[2018-01-02] MEDS: INSULIN -REGULAR HUMAN 50 UNIT/0.5 ML ML SQ SCH ×2 (07:30→10:50)
[2018-01-02 08:24] VITALS: O2SAT 94
[2018-01-02] MEDS: EPOETIN ALFA 10,000 UNIT/ML VIAL IV SCH (10:00)
[2018-01-02] MEDS: INSULIN DETEMIR 100 UNIT/1 ML INSULIN SQ SCH (10:45)
[2018-01-02] MEDS: PRASUGREL (EFFIENT) 10 MG TAB PO SCH (10:47)
[2018-01-02] MEDS: VITAMIN D 5,000 UNIT CAP PO SCH (10:47)
[2018-01-02] MEDS: DOCUSATE NA 100 MG CAP PO SCH (10:48)
[2018-01-02] MEDS: predniSONE 20 MG TAB PO SCH (10:48)
[2018-01-02] MEDS: levoFLOXacin 250 MG TAB PO SCH (10:48)
[2018-01-02] MEDS: ASPIRIN EC 325 MG TABLET PO SCH (10:49)
[2018-01-02] MEDS: ALPRAZOLAM 0.5 MG TABLET PO SCH ×2 (10:49→14:33)
[2018-01-02] MEDS: FUROSEMIDE 40 MG TABLET PO SCH (10:51)
--- NOTE | 2018-01-02 14:19 | P.DS ---
Admission Date: 12/26/17 Discharge Date: 01/02/18 Primary Care Provider: Dr. Galvan Disposition: HOSPICE-HOME Discharge Condition: GOOD Reason for Admission: Respiratory failure Consultations: Nephrology-Dr. Sneed Pulmonology-Dr. Mccoy - Problems (1) ARDS (adult respiratory distress syndrome) Current Visit: Yes Status: Acute (2) CHF (congestive heart failure) Onset Date: 10/16/17 Current Visit: Yes Status: Acute Qualifiers: Heart failure type: diastolic Heart failure chronicity: acute on chronic Qualified Code(s): I50.33 - Acute on chronic diastolic (congestive) heart failure (3) COPD (chronic obstructive pulmonary disease) Current Visit: Yes Status: Chronic Qualifiers: COPD type: chronic bronchitis Chronic bronchitis type: unspecified Qualified Code(s): J42 - Unspecified chronic bronchitis (4) Pulmonary edema Onset Date: 10/16/17 Current Visit: Yes Status: Acute Qualifiers: Chronicity: acute (5) Anemia Onset Date: 12/06/14 Current Visit: Yes Status: Chronic Qualifiers: Anemia type: due to chronic kidney disease Chronic kidney disease stage: on chronic dialysis Qualified Code(s): N18.6 - End stage renal disease; D63.1 - Anemia in chronic kidney disease; D63.1 - Anemia in chronic kidney disease; Z99.2 - Dependence on renal dialysis; Z99.2 - Dependence on renal dialysis; Z99.2 - Dependence on renal dialysis; Z99.2 - Dependence on renal dialysis (6) Atrial fibrillation Onset Date: 08/22/16 Current Visit: Yes Status: Chronic Qualifiers: Atrial fibrillation type: persistent Qualified Code(s): I48.1 - Persistent atrial fibrillation (7) Coronary artery disease Onset Date: 10/02/17 Current Visit: Yes Status: Chronic Qualifiers: Coronary Disease-Associated Artery/Lesion type: [place] artery [place] vs. transplanted heart: [place] heart Associated angina: without angina Qualified Code(s): I25.10 - Atherosclerotic heart disease of [place] coronary artery without angina pectoris (8) Diabetes mellitus Onset Date: 10/02/17 Current Visit: Yes Status: Chronic Qualifiers: Diabetes mellitus type: type 2 Diabetes mellitus dedicated intermodal truck driver insulin use: with halfway use Diabetes mellitus complication status: with kidney complications Diabetes mellitus complication detail: with chronic kidney disease Chronic kidney disease stage: on chronic dialysis Qualified Code(s) : E11.22 - Type 2 diabetes mellitus with diabetic chronic kidney disease; N18.6 - End stage renal disease; Z99.2 - Dependence on renal dialysis; Z99.2 - Dependence on renal dialysis; Z99.2 - Dependence on renal dialysis; N18.6 - End stage renal disease; N18.6 - End stage renal disease; N18.6 - End stage renal disease; Z79.4 - terminal system operator (current) use of insulin; Z79.4 - terminal system operator (current ) use of insulin; Z79.4 - nursing home (current) use of insulin; Z79.4 - nursing home (current) use of insulin; Z99.2 - Dependence on renal dialysis (9) End stage renal disease Onset Date: 10/02/17 Current Visit: Yes Status: Chronic (10) Hypertension Onset Date: 10/02/17 Current Visit: Yes Status: Chronic Qualifiers: Hypertension type: essential hypertension (11) Hypothyroidism Current Visit: Yes Status: Chronic Qualifiers: Hypothyroidism type: acquired Qualified Code(s): E03.9 - Hypothyroidism, unspecified (12) Bacterial pneumonia Current Visit: No Status: Suspected Brief History of Present Illness: 77-year-old female presented urgency room with increasing shortness of breath. Patient with history of end-stage renal disease, diastolic CHF, COPD. The patient is on home oxygen. The patient was evaluated and required emergent dialysis. Patient was admitted for further evaluation. Hospital Course: During her stay her shortness of breath slowly improved. Patient was evaluated by pulmonology. Patient was found to have acute respiratory distress. Her condition improved. She was weaned off BiPAP to nasal cannula. Patient found to have bilateral pneumonia. She was treated with antibiotic therapy. Skilled placement was offered to the patient. Patient and family denied going to a facility. Advanced directives were addressed in detail. Patient wishes to be DNR. Because the this hospice was offered. This was addressed in detail. Patient and family agrees with this. [id number] DNR has been signed. Patient will continue with hospice with diagnosis of chronic diastolic CHF. At discharge patient will continue with Levaquin 250 mg every 48 hr for 3 more doses. Patient will continue with Lasix 40 mg 1 pill twice daily. She will continue with a 1500 cc per day fluid restriction. Patient continue with oxygen to maintain sats above 90%. Comfort measures will be continued. Patient with end-stage renal disease. Patient was seen by nephrology. Patient continued with dialysis during her stay. At discharge she will continue with dialysis Tuesdays, and Saturdays. She will continue with dialysis. Patient with underlying diabetes. Hemoglobin A1c 6.6. Blood sugars were elevated during her stay. The patient did receive steroid treatment. This was discontinued at discharge. Patient was also eating food from the outside. This was addressed in detail that the patient needed to continue with a diabetic diet. At discharge, she will continue with a diabetic diet. Patient may require sliding scale. Since the patient is hospice she may continue with comfort feeds. Patient with history of atrial fibrillation, CAD, and hyperlipidemia. Patient will continue with aspirin, Effient and cholesterol medication. Patient will also continue with her rate control medication. Patient may follow up with cardiology as an outpatient. Patient likely with COPD with history of tobacco abuse in the past. At discharge she will continue with Symbicort 2 puffs twice daily and Pro air 2 puffs 3 times a day as needed for shortness of breath. Vital Signs/Physical Exam: Temp Pulse Resp BP Pulse Ox 97.5 F 62 20 141/53 H 90 L 01/02/18 04:00 01/02/18 10:51 01/02/18 04:00 01/02/18 10:51 01/02/18 04:00 General: Alert, In no apparent distress, Oriented x3, Cooperative HEENT: Atraumatic Neck: Supple Respiratory: Crackles/rales (Bilateral) Cardiovascular: Normal pulses, Regular rate/rhythm Gastrointestinal: Normal bowel sounds, Soft and benign, Non-distended, No masses , No rebound, No guarding Musculoskeletal: No erythema, No tenderness, No warmth Integumentary: No tenderness/swelling, No erythema, No warmth, No cyanosis Neurological: Normal speech, Normal strength at 5/5 x4 extr, Normal tone, Normal affect Laboratory Data at Discharge: WBC 15.3 K/uL (4.3-10.9) H D 01/02/18 03:54 Hgb 10.0 g/dL (12.0-15.0) L 01/02/18 03:54 Hct 31.6 % (36.0-45.0) L 01/02/18 03:54 Plt Count 318 K/uL (152-406) 01/02/18 03:54 PT 14.4 SECONDS (9.5-12.5) H 12/26/17 07:05 INR 1.22 12/26/17 07:05 APTT 30.9 SECONDS (24.3-36.9) 12/26/17 07:05 Sodium 128 mEq/L (135-145) L 01/02/18 03:54 Potassium 5.0 mEq/L (3.6-5.0) 01/02/18 03:54 BUN 53 mg/dL (6-20) H 01/02/18 03:54 Creatinine 4.58 mg/dL (0.44-1.00) H D 01/02/18 03:54 Glucose 265 mg/dL (65-120) H 01/02/18 03:54 Phosphorus 4.3 mg/dL (2.5-4.3) 12/28/17 04:49 Magnesium 2.2 mg/dL (1.8-2.5) 01/02/18 03:54 Total Bilirubin 0.6 mg/dL (0.3-1.2) 12/30/17 04:25 AST 22 IU/L (10-42) 12/30/17 04:25 ALT 26 IU/L (10-60) 12/30/17 04:25 Alkaline Phosphatase 88 IU/L (42-121) 12/30/17 04:25 Troponin I 0.16 ng/mL (<0.03) H 12/26/17 15:31 B-Natriuretic Peptide 4878 pg/ml (<=100) H 12/27/17 05:02 Home Medications: Atorvastatin Calcium [Lipitor*] 40 mg PO DAILY 10/15/17 Cholecalciferol (Vitamin D3) [Vitamin D 5,000 IU Cap*] 5,000 unit PO DAILY #30 cap 10/19/17 Furosemide [Lasix] 40 mg PO BID #60 tablet 12/06/17 Docusate Sodium 100 mg PO DAILY 12/21/17 Prasugrel Hydrochloride [Effient*] 10 mg PO DAILY 12/21/17 Aspirin [Aspirin EC 325 MG] 325 mg PO DAILY 12/26/17 Metoprolol Succinate [Toprol Xl*] 25 mg PO BEDTIME 12/26/17 Albuterol Sulfate [Proair Hfa] 8.5 gm IH TID PRN #1 hfa.aer.ad 01/02/18 Budesonide/Formoterol Fumarate [Symbicort 160-4.5 Mcg Inhaler] 2 puff IH BID #1 hfa.aer.ad 01/02/18 Levofloxacin [Levaquin*] 250 mg PO Q48H #3 tab 01/02/18 New Medications: Albuterol Sulfate [Proair Hfa] 8.5 gm IH TID PRN #1 hfa.aer.ad PRN Reason: Shortness Of Breath Budesonide/Formoterol Fumarate [Symbicort 160-4.5 Mcg Inhaler] 2 puff IH BID #1 hfa.aer.ad Levofloxacin [Levaquin*] 250 mg PO Q48H #3 tab Patient Discharge Instructions: 1. Patient will return home with hospice with diagnosis of chronic diastolic CHF. [id number] DNR signed. 2. Patient presented with shortness of breath. Patient developed acute respiratory distress. Patient required treatment. Patient evaluated by pulmonology. Patient found to have bilateral pneumonia. Patient also treated with dialysis. Her condition improved. At discharge she will continue with Levaquin 250 mg every 48 hr for 3 more doses. Patient will continue with Lasix 40 mg 1 pill twice daily. She will continue with a 1500 cc per day fluid restriction. Patient continue with oxygen to maintain sats above 90%. 3. Patient with end- stage renal disease. She received dialysis Tuesdays, and Saturdays. She will continue with dialysis. 4. Patient with underlying diabetes. Hemoglobin A1c 6.6. She will continue with a diabetic diet. Patient may require sliding scale. Since the patient is hospice she may continue with comfort feeds. 5. Patient with history of atrial fibrillation, CAD, and hyperlipidemia. Patient will continue with aspirin, Effient and cholesterol medication. Patient may follow up with cardiology as an outpatient. 6. Patient likely with COPD with history of tobacco abuse in the past. At discharge she will continue with Symbicort 2 puffs twice daily and Pro air 2 puffs 3 times a day as needed for shortness of breath. Diet: ADA Activity: Fall precautions Time spent managing pt's care (in minutes): 55
[2018-01-02 15:10] VITALS: BP 166/55; TEMP 97.8
--- NOTE | 2018-01-02 21:10 | P.PN ---
Date of Service: 01/02/18 Vital Signs Temp Pulse Resp BP Pulse Ox 97.8 F 64 20 166/55 H 98 01/02/18 12:00 01/02/18 12:00 01/02/18 12:00 01/02/18 12:00 01/02/18 12:00 Microbiology Results 12/26/17 07:05 Blood - Other Aerobic Blood Culture - Final No growth in 5 days. 12/26/17 07:05 Blood - Other Anaerobic Blood Culture - Final No growth in 5 days. 12/26/17 07:05 Blood - Other Aerobic Blood Culture - Final No growth in 5 days. 12/26/17 07:05 Blood - Other Anaerobic Blood Culture - Final No growth in 5 days. Assessment/ Plan: Nephrology CPS stable without CP or SOB. +Cough No acute events overnight. +Appetite +Fatigue Vitals, medications, blood work and imaging reviewed in the chart. General: Oriented x3, Cooperative HEENT: Mucous membr. moist/pink Neck: Supple Respiratory: CTA Cardiovascular: No edema, Regular rate/rhythm, No rubs Gastrointestinal: Soft and benign, Non-distended Musculoskeletal: No clubbing, No contractures Integumentary: No rashes, No cyanosis Neurological: Normal speech Blood work reviewed in the chart. Initial blood work: Hgb 8.6 Imagings Data: EXAM DESCRIPTION: RAD - Chest Single View - 12/26/2017 7:21 am CLINICAL HISTORY: Shortness of breath. COMPARISON: 12/21/2017 FINDINGS: Portable technique limits examination quality. Mild improvement in extensive bilateral pulmonary opacities since comparative study. The heart is upper limit normal in size. No displaced fractures.Aortic atherosclerosis. IMPRESSION: Mild improvement lung aeration since comparative studies. Conclusions/Impression: A/ A/C Diastolic CHF. Acute respiratory failure/ hypoxia. ESRD on HD. HTN with CKD. Anemia in CKD. DM II with CKD. YONAS/ Secondary HyperPTH. P/ Continue current POC and Medications. Bipap prn. Seen and examined on HD today.. Follow up with pulmonary. Titrate insulin as needed to improve BG control. AM labs. Daily weight. Case discussed with Dr. Orr.
== END 2018-01-02 15:46 | disposition hospice, home (50) | DRG 291 ==
LOC: ER 07:01 → ERHOLD 07:45 → 3RD-ICU 08:31 → 4TH 12-30 16:39
PROVIDERS: ADMIT Internal Medicine Hematology & Oncology; ATTEND Family Medicine
PROC: 5A09357 Assistance with Respiratory Ventilation, Less than 24 Consecutive Hours, Continuous Positive Airway Pressure (ICD-10-PCS; principal; 2017-12-26)
PROC: 5A1D70Z Performance of Urinary Filtration, Intermittent, Less than 6 Hours Per Day (ICD-10-PCS; 2017-12-26)
PROC: 5A1D70Z Performance of Urinary Filtration, Intermittent, Less than 6 Hours Per Day (ICD-10-PCS; 2017-12-28)
PROC: 5A1D70Z Performance of Urinary Filtration, Intermittent, Less than 6 Hours Per Day (ICD-10-PCS; 2017-12-31)
PROC: 5A1D70Z Performance of Urinary Filtration, Intermittent, Less than 6 Hours Per Day (ICD-10-PCS; 2018-01-02)
DX: I13.2 Hypertensive heart and chronic kidney disease with heart failure and with stage 5 chronic kidney disease, or end stage renal disease (principal); I50.33 Acute on chronic diastolic (congestive) heart failure; J96.01 Acute respiratory failure with hypoxia; N18.6 End stage renal disease; J18.9 Pneumonia, unspecified organism; I50.32 Chronic diastolic (congestive) heart failure; I48.1 Persistent atrial fibrillation; N25.81 Secondary hyperparathyroidism of renal origin; E11.22 Type 2 diabetes mellitus with diabetic chronic kidney disease; E78.5 Hyperlipidemia, unspecified; D63.1 Anemia in chronic kidney disease; E03.9 Hypothyroidism, unspecified; E87.70 Fluid overload, unspecified; J44.9 Chronic obstructive pulmonary disease, unspecified; Z99.2 Dependence on renal dialysis
CPT/HCPCS: 36415; 51702; 71045; 71046; 71250; 80048; 80053; 80076; 81003; 82550; 82805; 82947; 82962; 83735; 83880; 84100; 84145; 84484; 85025; 85610; 85730; 87040; 87389; 90935; 93005; 94640; 94660; 94760; 96365; 96375; 97163; 99285; G0257; J0360; J0456; J0696; J1650; J2150; J2920; J7512; J7605; P9047; Q4081

== ENCOUNTER 2018-01-06 12:35 | Emergency (ER) | payer OTHER ==
--- OUTSIDE RECORDS SUMMARY | 2018-01-06 12:37 | XMS REPORT | Clinical Summary ---
:1940 Author Organization [facility] Address [address] [place] [address] Care Team Providers Name Role Phone Gelacio Shaffer MD Primary Care Provider Allergies No [...] Eli Lin 01/10/2017 Telephone Cardiology Eli Lin 01/02/2017 - Hospital Encounter Cardiology Gelacio Shaffer, CAD S/P percutaneous 01/09/2017 coronary angioplasty (Primary Dx) after 01/05/2017 Immunizations Name Dates Previously Given Next Due [...] (120 lb) 01/09/2017 3:56 AM CDT Height - - Body Mass Index 22.67 01/09/2017 3:56 AM CDT Plan of Treatment Health Maintenance Due Date Last Done Comments ZOSTER VACCINE 2001 PNEUMOCOCCAL POLYSACCHARIDE VACCINE AGE 65 AND OVER 2006 INFLUENZA VACCINE 04/30/2018 PNEUMOCOCCAL-13 Completed 01/09/2017 Procedures Procedure Name Priority Date/Time Associated Diagnosis Comments HEMODIALYSIS Routine 01/08/2017 12:05 AM CDT HEMODIALYSIS Routine 01/05/2017 12:05 AM CDT after 01/05/2017 Results POC glucose (01/09/2017 4:35 PM)Only the most recent of18 resultswithin the time period is included. Component Value Ref Range POC glucose 138 (H) 65 - 99 mg/dL Comment: [facility] Notified RN Meter ID: [id number] Reel Cart Operator: Henri Boudreaux Specimen Performing Laboratory [facility] DEPARTMENT OF PATHOLOGY AND GENOMIC MEDICINE [address] [place] [id number] Prothrombin time with INR (01/09/2017 4:00 AM)Only the most recent of2 resultswithin the time period is included. Component Value Ref Range Prothrombin time 23.2 (H) 12.0 - 15.0 sec INR 2.0 Comment: The International Normalized Ratio (INR) is a therapeutic monitoring tool for patients who are stable on oral anticoagulant therapy. An INR of 2.0-3.0 is suggested for deep vein thrombosis/pulmonary embolism. Specimen Performing Laboratory Blood [facility] DEPARTMENT OF PATHOLOGY AND GENOMIC MEDICINE [address] [place] [address] CBC with platelet and differential (01/09/2017 3:59 AM)Only the most recent of4 resultswithin the [...] (promyelocytes, myelocytes, metamyelocytes) Specimen Performing Laboratory Blood [facility] DEPARTMENT OF PATHOLOGY AND GENOMIC MEDICINE [address] [place] [address] Estimated GFR (01/09/2017 3:56 AM)Only the most recent of4 [...] and Americans. Specimen Performing Laboratory Plasma specimen [facility] DEPARTMENT OF PATHOLOGY AND GENOMIC MEDICINE [address] [place] [id number] Comprehensive metabolic panel (01/09/2017 3:56 AM)Only the most recent of3 resultswithin the [...] 1.2 mg/dL Specimen Performing Laboratory Plasma specimen [facility] DEPARTMENT OF PATHOLOGY AND GENOMIC MEDICINE [address] [place] [address] Cancer antigen 19-9 (01/08/2017 4:00 AM) Component Value Ref Range CA 19-9 <1 0 - 35 U/mL Comment: The Praveen Marga 8000 CA19-9 immunoassay was used. Results obtained with different assay methods or kits should not be used interchangeably and may be different. Specimen Performing Laboratory Plasma specimen [facility] DEPARTMENT OF PATHOLOGY AND GENOMIC MEDICINE [address] [place] [address] Alpha fetoprotein (01/08/2017 4:00 AM) Component Value Ref Range Alpha fetoprotein 3.3 0.0 - 8.3 ng/mL Comment: The Marga 8000 AFP immunoassay was used. Results obtained with different assay methods or kits should not be used interchangeably and may be different. Specimen Performing Laboratory Serum [facility] [address] [address] Carcinoembryonic antigen (CEA) (01/08/2017 4:00 AM) Component Value Ref Range CEA 4.7 (H) 0.0 - 3.8 ng/mL Comment: Reference range for heavy smokers:0.0 - 5.5 ng/mL The PRAVEEN Marga 8000 CEA immunoassay was used. Results obtained with different assay methods or kits should not be used interchangeably and may be different. Specimen Performing Laboratory Serum [facility] [address] [address] Lipase level (01/06/2017 3:48 AM) Component Value Ref Range Lipase 129 (H) 13 - 60 U/L Specimen Performing Laboratory Plasma specimen [facility] [address] [address] Bilirubin direct (01/06/2017 3:48 AM) Component Value Ref Range Bilirubin direct <0.2 0.0 - 0.3 mg/dL Specimen Performing Laboratory Plasma specimen [facility] [address] [address] Amylase level (01/06/2017 3:48 AM) Component Value Ref Range Amylase 69 13 - 73 U/L Specimen Performing Laboratory Plasma specimen [facility] [address] [address] Reticulocyte count (01/05/2017 11:20 AM) Component Value Ref Range Retic %, auto 2.7 (H) 0.5 - 2.1 % Retic absolute, auto 0.0960 0.0210 - 0.1155 m/uL Specimen Performing Laboratory Blood [facility] [address] [address] Parathyroid hormone (01/05/2017 11:20 AM) Component Value Ref Range PTH 254 (H) 15 - 65 pg/mL Specimen Performing Laboratory Blood [facility] [address] [address] Total iron binding capacity (01/05/2017 10:38 AM) Component Value Ref Range Iron level 28 (L) 37 - 145 ug/dL Iron binding capacity 174 (L) 200 - 400 ug/dL % Saturation 16.1 15.0 - 38.0 % Specimen Performing Laboratory Plasma specimen [facility] DEPARTMENT PATHOLOGY AND [address] [address] Ferritin level (01/05/2017 10:38 AM) Component Value Ref Range Ferritin level 5,045 (H) 13 - 150 ng/mL Specimen Performing Laboratory Plasma specimen [facility] DEPARTMENT OF PATHOLOGY AND [address] [address] Hepatitis B surface antigen (01/05/2017 7:50 AM) Component Value Ref Range Hepatitis B surface Ag Non-reactive Non-reactive Specimen Performing Laboratory Blood [facility] [address] [address] Basic metabolic panel (01/05/2017 7:50 AM) Component [...] 10.2 mg/dL Specimen Performing Laboratory Plasma specimen [facility] DEPARTMENT OF PATHOLOGY AND [address] [address] after 01/05/2017 Insurance Payer Benefit Plan / Group Subscriber ID Type Phone Address MEDICARE MEDICARE PART A AND B xxxxxxxxxx Medicare [place], [place] [phone] [place], [place] [phone]
--- NOTE | 2018-01-06 12:54 | EKG ---
Test Date: 2018-01-06 Test Time: 12:35:37 Tire Layer: DANIAL MEASUREMENT RESULTS: Intervals: Rate: 87 [place]: 144 QRSD: 138 QT: 442 QTc: 531 [place]: P: 42 [place]: 144 QRS: 36 T: 9 INTERPRETIVE STATEMENTS: Normal sinus rhythm Right bundle branch block Possible Inferior infarct, age undetermined Abnormal ECG Compared to ECG 12/26/2017 07:11:35 Myocardial infarct finding now present Electronically Signed On 01-06-18 12:54:16 CDT by Sameer Newsome
--- NOTE | 2018-01-06 13:09 | RAD REPORT ---
EXAM DESCRIPTION: [facility] Single View01/06/2018 1:04 pm CLINICAL HISTORY: Chest pain COMPARISON: December 31, 2017 FINDINGS: Extensive bilateral pulmonary opacities are present. The heart is moderately enlarged IMPRESSION: Extensive bilateral pulmonary opacities probably represent pulmonary edema or pneumonia superimposed over pulmonary fibrosis
[2018-01-06 13:12] LABS: Absolute Lymphocytes (CBC) 0.3 K/uL (0.7-4.9); Absolute Monocytes 0.6 K/uL (0.1-1.3); Basophils % 0.1 % (0-1.3); Eosinophils % 0.1 % (0-4.4); Hematocrit 30.4 % (36.0-45.0); Lymphocytes % 1.5 % (15.3-44.8); MCH 29.8 pg (27.0-35.0); MCV 96.7 fL (80-100); MPV 8.1 fL (7.6-11.3); Monocytes % 3.2 % (3.3-12.3); RBC Red Blood Cell Count 3.14 M/uL (3.86-4.86)
[2018-01-06] MEDS ORDERED: FUROSEMIDE 40 MG/4 ML VIAL ONE (13:29)
[2018-01-06 13:36] LABS: Albumin 2.8 g/dL (3.2-5.5); Bilirubin Direct 0.3 mg/dL (0-0.2); Bilirubin Total 1.3 mg/dL (0.3-1.2); CKMB Creatine Kinase MB 2.4 ng/ml (0.3-4.0); Magnesium 2.2 mg/dL (1.8-2.5); Potassium 4.1 mEq/L (3.6-5.0); Protein, Total 6.2 g/dL (6.0-8.3)
[2018-01-06] MEDS ORDERED: Levofloxacin500mg IV 500 MG/100 ML BAG IV ONE (13:50)
[2018-01-06 14:05] LABS: Protime INR 1.15
--- NOTE | 2018-01-06 15:23 | EDPHYS ---
Physician Documentation [facility] Name: Chen Troncoso Age: 77 yrs Sex: Female : 1940 Arrival Date: 01/06/2018 Time: 12:42 Bed 2 Private MD: ED Physician Silvio Abel HPI: 01/06 14:06 This 77 yrs old Female presents to ER via EMS with complaints of Chest Pain > jr8 31 y/o. 14:06 The patient or guardian reports chest pain that is located primarily in the substernal jr8 area. Onset: acutely, today. The pain does not radiate. Associated signs and symptoms: Pertinent positives: shortness of breath. The chest pain is described as a pressure. Duration: The patient or guardian reports a single episode, that is still ongoing. Modifying factors: The symptoms are alleviated by nothing. the symptoms are aggravated by nothing. Severity of pain: At its worst the pain was moderate in the emergency department the pain is unchanged. 15:10 The patient has experienced similar episodes in the past, a few times. The patient has jr8 not recently seen a physician. Patient came in via EMS for chest pain and shortness of breath. Historical: - Allergies: 12:55 NKDA; aj - Home Meds: 12:55 amiodarone 200 mg Oral tab 1 tab once daily [Active]; Lantus 100 unit/mL Sub-Q soln 26 aj units BID [Active]; Lasix 40 mg Oral tab 1 tab 3 times per day [Active]; Norvasc 10 mg Oral tab 1 tab once daily [Active]; Novolog PenFill 100 unit/mL subcutaneous crtg 5 unit [Active]; renevela 800 mg PO TID [Active]; Vitamin D3 5,000 unit Oral tab daily [Active]; - PMHx: 12:55 Anemia; CHF; Diabetes - IDDM; Dialysis; ESRD; Hyperlipidemia; Hypertension; PVD; aj - PSHx: 12:55 None; aj - Immunization history:: Adult Immunizations unknown. - Social history:: Smoking status: Patient/guardian denies using tobacco. ROS: 15:10 Eyes: Negative for injury, pain, redness, and discharge, ENT: Negative for injury, jr8 pain, and discharge, Neck: Negative for injury, pain, and swelling, Abdomen/GI: Negative for abdominal pain, nausea, vomiting, diarrhea, and constipation, Back: Negative for injury and pain, MS/Extremity: Negative for injury and deformity, Skin: Negative for injury, rash, and discoloration, Neuro: Negative for headache, weakness, numbness, tingling, and seizure. 15:10 Cardiovascular: Positive for chest pain, Negative for edema, orthopnea, palpitations. 15:10 Respiratory: Positive for shortness of breath. Exam: 15:10 Eyes: Pupils equal round and reactive to light, extra-ocular motions intact. Lids and jr8 lashes normal. Conjunctiva and sclera are non-icteric and not injected. Cornea within normal limits. Periorbital areas with no swelling, redness, or edema. ENT: Nares patent. No nasal discharge, no septal abnormalities noted. Tympanic membranes are normal and external auditory canals are clear. Oropharynx with no redness, swelling, or masses, exudates, or evidence of obstruction, uvula midline. Mucous membranes moist. Neck: Trachea midline, no thyromegaly or masses palpated, and no cervical lymphadenopathy. Supple, full range of motion without nuchal rigidity, or vertebral point tenderness. No Meningismus. Cardiovascular: Regular rate and rhythm with a normal S1 and S2. No gallops, murmurs, or rubs. Normal PMI, no JVD. No pulse deficits. Abdomen/GI: Soft, non-tender, with normal bowel sounds. No distension or tympany. No guarding or rebound. No evidence of tenderness throughout. Back: No spinal tenderness. No costovertebral tenderness. Full range of motion. Skin: Warm, dry with normal turgor. Normal color with no rashes, no lesions, and no evidence of cellulitis. MS/ Extremity: Pulses equal, no cyanosis. Neurovascular intact. Full, normal range of motion. Neuro: Awake and alert, GCS 15, oriented to person, place, time, and situation. Cranial nerves II-XII grossly intact. Motor strength 5/5 in all extremities. Sensory grossly intact. Cerebellar exam normal. Normal gait. 15:10 Respiratory: mild respiratory distress is noted, Respirations: tachypnea, that is mild, Breath sounds: rales, that are mild, are located in both bases. Vital Signs: 12:57 BP 125 / 40; Pulse 87; Resp 28; Temp 98.4; Pulse Ox 92% on 3 lpm NC; Weight 49.9 kg; aj Height 5 ft. 4 in. (162.56 cm); Pain 6/10; 13:32 BP 133 / 44; Pulse 83; Resp 18; Pulse Ox 96% on 3 lpm NC; aj 13:55 BP 133 / 47; Pulse 80; Resp 22; Pulse Ox 99% on 3 lpm NC; aj 14:37 BP 138 / 52; Pulse 79; Resp 16; Pulse Ox 100% on R/A; aj 16:08 BP 125 / 46; Pulse 76; Resp 18; Pulse Ox 100% 2 lpm ; mw1 12:57 Body Mass Index 18.88 (49.90 kg, 162.56 cm) aj MDM: 12:42 Patient medically screened. jr8 15:10 Data reviewed: vital signs, nurses notes, lab test result(s), EKG, radiologic studies, jr8 plain films. Data interpreted: Pulse oximetry: on room air is 100 %. Interpretation: normal. Counseling: I had a detailed discussion with the patient and/or guardian regarding: the historical points, exam findings, and any diagnostic results supporting the discharge/admit diagnosis, lab results, radiology results. ED course: Patient is on hospice. [facility] social services designee came out. Family, social services designee and I had conference about patients condition and that she is on hospice for chronic end stage CHF. Full discussion on what hospice was for vs coming and being admitted to hospital. Family now understands and would wish to stay on hospice and have end of life care instead of having it hospice revoked and being admitted again to hospital. Patient discharged home for further hospice care . 01/06 12:43 Order name: Basic Metabolic Panel; Complete Time: 13:42 01/06 12:43 Order name: BNP; Complete Time: 13:42 01/06 12:43 Order name: CBC with Diff; Complete Time: 15:53 01/06 12:43 Order name: Ckmb; Complete Time: 13:42 01/06 12:43 Order name: CPK; Complete Time: 13:42 01/06 12:43 Order name: LFT's; Complete Time: 13:42 01/06 12:43 Order name: Magnesium; Complete Time: 13:42 01/06 12:43 Order name: PT-INR; Complete Time: 14:18 01/06 12:43 Order name: Ptt, Activated; Complete Time: 14:18 01/06 12:43 Order name: Troponin (emerg Dept Use Only); Complete Time: 13:42 01/06 12:43 Order name: XRAY Chest (1 view); Complete Time: 13:11 01/06 13:15 Order name: Manual Differential; Complete Time: 15:53 EDMS 01/06 12:43 Order name: EKG; Complete Time: 12:45 01/06 12:43 Order name: Cardiac monitoring; Complete Time: 13:07 01/06 12:43 Order name: EKG - Nurse/Tech; Complete Time: 13:01/06 12:43 Order name: IV Saline Lock; Complete Time: 13:01/06 12:43 Order name: Labs collected and sent; Complete Time: 13:32 01/06 12:43 Order name: O2 Per Protocol; Complete Time: 13:01/06 12:43 Order name: O2 Sat Monitoring; Complete Time: 13: Administered Medications: 13:31 Drug: Lasix 40 mg Route: IVP; Site: right antecubital; 16:18 Follow up: Response: No adverse reaction aj 13:54 Drug: LevaQUIN 500 mg Volume: 100 ml; Route: IVPB; Infused Over: 60 mins; Site: right aj antecubital; 16:18 Follow up: Response: No adverse reaction; IV Status: Completed infusion; IV Intake: aj 150ml Disposition: 18:33 Co-signature as Attending Physician, Silvio Abel MD. rn Disposition: 01/06/18 15:22 Discharged to Home. Impression: Acute systolic (congestive) heart failure, Chronic systolic (congestive) heart failure, Chronic kidney disease (CKD). - Condition is Stable. - Discharge Instructions: Heart Failure, Chronic Kidney Disease. - Medication Reconciliation Form, Thank You Letter, Antibiotic Education, Prescription Opioid Use form. - Follow up: Private Physician; When: 1 - 2 days; Reason: Recheck today's complaints, Continuance of care, Re-evaluation by your physician. - Problem is new. - Symptoms have improved. Signatures: Dispatcher [employer] Michaelle Youngblood, RN RN Silvio Soto MD MD rn Gama Bennett PA PA jr8
--- NOTE | 2018-01-06 15:23 | ER ---
Nurse's Notes [facility] Name: Chen Troncoso Age: 77 yrs Sex: Female : 1940 Arrival Date: 01/06/2018 Time: 12:42 Bed 2 Private MD: Diagnosis: Acute systolic (congestive) heart failure;Chronic systolic (congestive) heart failure;Chronic kidney disease (CKD) Presentation: 01/06 12:43 Presenting complaint: EMS states: Patient C/O chest pain with SOB that started today, aj with bloody stool. Patient received dialysis on Saturday. Transition of care: patient was not received from another setting of care. Onset of symptoms was January 06, 2018. Note EMS reports patient was 78% at home on 3 liters NC with multiple feet of extension tubing. Care prior to arrival: IV initiated. 20 GA, in the right antecubital area, Oxygen administered. via a non-rebreather mask. 12:43 Method Of Arrival: EMS: [facility] aj 12:43 Acuity: REBEKAH 2 aj Triage Assessment: 12:55 General: Appears in no apparent distress. comfortable, Behavior is calm, cooperative, aj appropriate for age. Pain: Complains of pain in chest. Neuro: Level of Consciousness is awake, alert, obeys commands, Oriented to person, place, time, situation. Cardiovascular: Reports chest pain, shortness of breath, Capillary refill < 3 seconds in bilateral fingers Patient's skin is warm and dry. Respiratory: Reports shortness of breath Airway is patent Respiratory effort is even, unlabored, Respiratory pattern is regular, symmetrical. Derm: Skin is intact, is healthy with good turgor, Skin is normal, pale. Historical: - Allergies: 12:55 NKDA; aj - Home Meds: 12:55 amiodarone 200 mg Oral tab 1 tab once daily [Active]; Lantus 100 unit/mL Sub-Q soln 26 aj units BID [Active]; Lasix 40 mg Oral tab 1 tab 3 times per day [Active]; Norvasc 10 mg Oral tab 1 tab once daily [Active]; Novolog PenFill 100 unit/mL subcutaneous crtg 5 unit [Active]; renevela 800 mg PO TID [Active]; Vitamin D3 5,000 unit Oral tab daily [Active]; - PMHx: 12:55 Anemia; CHF; Diabetes - IDDM; Dialysis; ESRD; Hyperlipidemia; Hypertension; PVD; aj - PSHx: 12:55 None; aj - Immunization history:: Adult Immunizations unknown. - Social history:: Smoking status: Patient/guardian denies using tobacco. Screenin:59 Abuse screen: Denies threats or abuse. Denies injuries from another. Nutritional aj screening: No deficits noted. Tuberculosis screening: No symptoms or risk factors identified. Fall Risk None identified. Assessment: 12:59 Reassessment: See triage. aj 13:33 Reassessment: Patient appears in no apparent distress at this time. No changes from aj previously documented assessment. Patient and/or family updated on plan of care and expected duration. Pain level reassessed. Patient is alert, oriented x 3, equal unlabored respirations, skin warm/dry/pink. Patient denies pain at this time. Patient states feeling better. 16:16 Reassessment: Patient appears in no apparent distress at this time. No changes from aj previously documented assessment. Patient and/or family updated on plan of care and expected duration. Pain level reassessed. Patient is alert, oriented x 3, equal unlabored respirations, skin warm/dry/pink. Patient denies pain at this time. Patient states feeling better. Vital Signs: 12:57 BP 125 / 40; Pulse 87; Resp 28; Temp 98.4; Pulse Ox 92% on 3 lpm NC; Weight 49.9 kg; aj Height 5 ft. 4 in. (162.56 cm); Pain 6/10; 13:32 BP 133 / 44; Pulse 83; Resp 18; Pulse Ox 96% on 3 lpm NC; aj 13:55 BP 133 / 47; Pulse 80; Resp 22; Pulse Ox 99% on 3 lpm NC; aj 14:37 BP 138 / 52; Pulse 79; Resp 16; Pulse Ox 100% on R/A; aj 16:08 BP 125 / 46; Pulse 76; Resp 18; Pulse Ox 100% 2 lpm ; mw1 12:57 Body Mass Index 18.88 (49.90 kg, 162.56 cm) aj ED Course: 12:35 EKG done, by military pay technician. reviewed by Gama DE SANTIAGO. at1 12:42 Patient arrived in ED. aj 12:42 Gama Bennett PA is PHCP. jr8 12:42 Silvio Abel MD is Attending Physician. jr8 12:53 Triage completed. aj 12:57 Arm band placed on right wrist. Patient placed in an exam room, on a stretcher. EKG aj completed in triage. Results shown to MD. 12:59 Patient has correct armband on for positive identification. property assessment monitor on. Pulse aj ox on. NIBP on. 12:59 Maintain EMS IV. Gauge \T\ site: 20 to right AC. Oxygen administration via nasal cannula aj \T\ 3L/min Response to oxygen therapy: symptoms improved. 13:03 X-ray completed. Portable x-ray completed in exam room. Patient tolerated procedure jb2 well. 13:03 XRAY Chest (1 view) In Process Unspecified. EDMS 13:06 Michaelle Keller, RN is Primary Nurse. aj 16:16 No provider procedures requiring assistance completed. IV discontinued, intact, aj bleeding controlled, No redness/swelling at site. Pressure dressing applied. Administered Medications: 13:31 Drug: Lasix 40 mg Route: IVP; Site: right antecubital; aj 16:18 Follow up: Response: No adverse reaction aj 13:54 Drug: LevaQUIN 500 mg Volume: 100 ml; Route: IVPB; Infused Over: 60 mins; Site: right aj antecubital; 16:18 Follow up: Response: No adverse reaction; IV Status: Completed infusion; IV Intake: aj 150ml Intake: 16:18 IV: 150ml; Total: 150ml. aj Outcome: 15:22 Discharge ordered by . jr8 16:16 Discharged to home ambulatory. aj 16:16 Condition: good 16:16 Discharge instructions given to patient, Instructed on discharge instructions, follow up and referral plans. Demonstrated understanding of instructions, follow-up care. 16:19 Patient left the ED. aj Signatures: Dispatcher [employer] EDMS Michaelle Keller, RN RN Corey Cardoza jb2 Gama Bennett PA PA jrMichaelle carrero, historic sites registrar EKG Tat1 Madhav Thomas1 Corrections: (The following items were deleted from the chart) 13:01 12:57 BP 125 / 40; Pulse 87bpm; Resp 28bpm; Pulse Ox 90% 3 lpm Nasal Cannula; Temp aj 98.4F; 49.9 kg; Height 5 ft. 4 in.; BMI: 18.8; Pain 6/10; aj
[2018-01-06 15:44] LABS: Blood Morphology Comment NOTED (NOT SEEN); Platelet Estimate ADEQ
[2018-01-06 15:45] LABS: Anisocytosis 3+
[2018-01-06 16:23] VITALS: TEMP 98.4
[2018-01-06 16:27] VITALS: O2SAT 100
[2018-01-06 16:28] VITALS: BP 125/46
== END 2018-01-06 16:19 | disposition home or self-care (01) ==
LOC: ER 12:35
DX: I50.23 Acute on chronic systolic (congestive) heart failure (principal); I12.0 Hypertensive chronic kidney disease with stage 5 chronic kidney disease or end stage renal disease; E11.22 Type 2 diabetes mellitus with diabetic chronic kidney disease; N18.6 End stage renal disease; E78.5 Hyperlipidemia, unspecified; Z79.4 Long term (current) use of insulin; Z99.2 Dependence on renal dialysis
CPT/HCPCS: 36415; 71045; 80048; 80076; 82550; 82553; 83735; 83880; 84484; 85025; 85610; 85730; 93005; 96365; 96366; 96375; 99285